=== PATIENT | male | born 1980 | race Caucasian/White ===

== ENCOUNTER 2020-08-01 19:18 | Outpatient (CLI) | payer MEDICAID | END 2020-08-01 19:19 | disposition critical access hospital (66) | LOC: EMS 19:18 | PROVIDERS: ATTEND Surgery | DX: R41.0 Disorientation, unspecified (principal) | CPT/HCPCS: A0425; A0427 ==

== ENCOUNTER 2020-08-01 19:35 | Emergency (ER) | payer MEDICAID ==
--- NOTE | 2020-08-01 19:52 | ED Physician Documentation ---
PD HPI ABD PAIN - Stated complaint Stated Complaint: AMS - Chief complaint Chief Complaint: Neuro - History obtained from History obtained from: Patient - History of Present Illness Timing - onset: How many days ago (2-3) Timing - duration: Days (2-3 days of) Timing - details: Gradual onset, Still present (He has had upper abdominal pain with nausea and vomiting over the last 2 to 3 days. He was feeling generally weak. He was reportedly walking toward the restroom and his partner noted him to be on the floor facedown. His partner had seen him just 5 or 10 minutes prior to that. Roused slowly.) Quality: Cramping, Aching, Pain Location: RUQ, Epigastric Radiation: Lower back Improved by: No: Eating, Vomiting Worsened by: Eating Associated symptoms: Nausea, Vomiting. No: Fever, Hematemesis, Diarrhea, Hematochezia, Dysuria Similar symptoms before: Has not had sx before (denies chronic abd problems. History of stomach pains at times due to gastritis/?ulcer, usually takes omeprazole but not consistently.) Recently seen: Not recently seen Review of Systems Constitutional: reports: Myalgias, Fatigue. denies: Fever, Chills Nose: denies: Rhinorrhea / runny nose, Congestion Throat: denies: Sore throat Respiratory: denies: Cough GI: reports: Abdominal Pain, Nausea, Vomiting. denies: Abdominal Swelling, Constipation, Hematemesis, Bloody / black stool : denies: Dysuria, Frequency Neurologic: reports: Generalized weakness, Syncope. denies: Seizure (partner did not see seizure activity. Found patient on floor, face down, after coming from next room.) PD PAST MEDICAL HISTORY - Past Medical History Cardiovascular: Hypertension Respiratory: None Neuro: Seizure disorder (unclear: the patient says he may have had a seizure in the past related to medications (Tramadol Rx and was taking high end of dose range).) - Past Surgical History Past Surgical History: No - Present Medications Home Medications: Ambulatory Orders Medication Instructions Recorded Confirmed Hydrocodone/Acetaminophen [Baker 1 each PO Q6H PRN #15 tablet 08/02/20 5-325 Tablet] Omeprazole 20 mg PO BID #40 capsule. 08/02/20 Promethazine [Phenergan] 25 mg PO Q6H PRN #20 tab 08/02/20 Sucralfate [Carafate] 1 gm PO ACHS #28 tablet 08/02/20 - Allergies Allergies/Adverse Reactions: Allergies Allergy/AdvReac Type Severity Reaction Status Date / Time No Known Drug Allergies Allergy Verified 08/01/20 19:46 - Living Situation Living Situation: reports: With spouse/s.o. (had recently met new partner and is visiting into [facility] for that.) Living Arrangement: reports: At home - Social History Does the pt smoke?: No Does the pt drink ETOH?: Yes ETOH Use: Other (had not had any for past 2-3 days due to symptoms. He states regular alcohol use but not daily per se. None the past 4 dayx. ) Does the pt have substance abuse?: No PD ED PE NORMAL - Vitals Vital signs reviewed: Yes - General General: Alert and oriented X 3, No acute distress, Well developed/nourished, Other (dried blood right lower lip. Oral exam is showing small lac underside of tongue. Poor dentition without local signs of infection. ) - HEENT HEENT: Atraumatic, Pharynx benign. No: Dentition benign - Neck Neck: Supple, no meningeal sign, No bony TTP, No adenopathy - Cardiac Cardiac: RRR (mild tachycardia), No murmur - Respiratory Respiratory: Clear bilaterally - Abdomen Abdomen: Normal bowel sounds, Soft, Non distended, No organomegaly, Other (tender in upper abd mid and right, with some local guarding. Bowel sounds present and slightly hyperactive. ) - Male Male : Deferred - Rectal Rectal: Deferred - Back Back: No CVA TTP - Derm Derm: Normal color, Warm and dry - Extremities Extremities: Normal ROM s pain, No edema, No calf tenderness / cord - Neuro Neuro: Alert and oriented X 3, No motor deficit, Normal speech Results - Vitals Vitals: Vital Signs - 24 hr 08/01/20 08/01/20 08/01/20 19:30 20:43 22:00 Temperature 37.0 C Heart Rate 104 H 74 73 Respiratory 15 14 14 Rate Blood Pressure 182/113 H 129/86 H 193/122 H O2 Saturation 94 96 98 08/02/20 08/02/20 08/02/20 00:00 00:20 02:00 Temperature 36.8 C 36.8 C Heart Rate 77 75 85 Respiratory 21 23 17 Rate Blood Pressure 195/139 H 167/110 H 171/105 H O2 Saturation 97 96 95 Oxygen O2 Source Room air - Labs Labs: Laboratory Tests 08/01/20 08/01/20 08/01/20 19:56 20:07 20:07 WBC 5.7 RBC 4.41 L Hgb 14.7 Hct 41.2 L MCV 93.4 MCH 33.3 H MCHC 35.7 RDW 12.6 Plt Count 59 L MPV 10.3 Neut # (Auto) 4.6 Lymph # (Auto) 0.8 L Hopkins # (Auto) 0.3 Eos # (Auto) 0.0 Baso # (Auto) 0.0 Absolute Nucleated RBC 0.00 Nucleated RBC % 0.0 Sodium 131 L Potassium 2.9 L Chloride 91 L Carbon Dioxide 28 Anion Gap 12.0 BUN 6 Creatinine 0.7 Estimated GFR (MDRD) 126 Glucose 115 H POC Whole Bld Glucose 116 H Calcium 8.9 Magnesium 1.7 Total Bilirubin 1.5 H AST 278 H ALT 90 H Alkaline Phosphatase 77 Total Protein 7.6 Albumin 4.2 Globulin 3.4 Albumin/Globulin Ratio 1.2 Lipase 33 TSH Urine Color Urine Clarity Urine pH Ur Specific Webster Urine Protein Urine Glucose (UA) Urine Ketones Urine Occult Blood Urine Nitrite Urine Bilirubin Urine Urobilinogen Ur Leukocyte Esterase Ur Microscopic Review Urine Culture Comments Ethyl Alcohol < 5.0 08/01/20 08/01/20 20:07 23:43 WBC RBC Hgb Hct MCV MCH MCHC RDW Plt Count MPV Neut # (Auto) Lymph # (Auto) Hopkins # (Auto) Eos # (Auto) Baso # (Auto) Absolute Nucleated RBC Nucleated RBC % Sodium Potassium Chloride Carbon Dioxide Anion Gap BUN Creatinine Estimated GFR (MDRD) Glucose POC Whole Bld Glucose Calcium Magnesium Total Bilirubin AST ALT Alkaline Phosphatase Total Protein Albumin Globulin Albumin/Globulin Ratio Lipase TSH 0.71 Urine Color YELLOW Urine Clarity CLEAR Urine pH 7.5 Ur Specific Webster <=1.005 Urine Protein NEGATIVE Urine Glucose (UA) NEGATIVE Urine Ketones NEGATIVE Urine Occult Blood NEGATIVE Urine Nitrite NEGATIVE Urine Bilirubin NEGATIVE Urine Urobilinogen 0.2 (NORMAL) Ur Leukocyte Esterase NEGATIVE Ur Microscopic Review NOT INDICATED Urine Culture Comments NOT INDICATED Ethyl Alcohol - Rads (name of study) head CT Radiology: Prelim report reviewed (no acute process), See rad report abd/pelvic CT Radiology: Prelim report reviewed (large gallbladder but no signs of acute cholecysitis. Recommended U/S to better eval if small stone and wall thickness), See rad report RUQ abd U/S Radiology: Prelim report reviewed (enlarged prostere), Other PD MEDICAL DECISION MAKING - ED course Complexity details: re-evaluated patient (Clinically cleared neck by standard criteria. He does seem likely dehydrated so given IV fluids as well as pain medicine and nausea medicine. This does help though is not consistent. He is redosed later in the evening without problems. Or watch how his symptoms do.), considered differential (Has had upper abdominal pain with nausea and vomiting so under hydrated and he had gotten up to head to the restroom so may have had a postural syncope. Consider seizure though no prolonged postictal phase. There does seem to be likely some element of withdrawal), d/w patient Departure - Departure Disposition: 01 Home, Self Care Clinical Impression: Upper abdominal pain, Dehydration, Hypokalemia Nausea and vomiting Qualifiers: Vomiting type: unspecified Vomiting Intractability: non-intractable Qualified Code(s): R11.2 - Nausea with vomiting, unspecified Acute gastritis Qualifiers: Gastritis type: unspecified gastritis Gastritis bleeding: without bleeding Qualified Code(s): K29.00 - Acute gastritis without bleeding Episode of syncope Qualifiers: Syncope type: unspecified Qualified Code(s): R55 - Syncope and collapse Condition: Stable Record reviewed to determine appropriate education?: Yes Instructions: ED Gastritis Prescriptions: Sucralfate [Carafate] 1 gm PO ACHS #28 tablet Hydrocodone/Acetaminophen [Baker 5-325 Tablet] 1 each PO Q6H PRN #15 tablet PRN Reason: Pain Omeprazole 20 mg PO BID #40 capsule. Promethazine [Phenergan] 25 mg PO Q6H PRN #20 tab PRN Reason: Nausea / Vomiting Comments: It sounds likely that you had a fainting episode related to dehydration and electrolyte abnormalities subsequent to your vomiting. A seizure cannot be excluded but sounds less likely. Continue your omeprazole and increase it to twice a day for the next few weeks. Add sucralfate 3 or 4 times a day to help coat the stomach. Promethazine for nausea every 6-8 hours if needed. Add Tylenol or hydrocodone if needed for stomach pain. Did not use any NSAIDs and avoid alcohol, coffee, spicy foods. Your potassium level is a bit low likely related to the vomiting you have had. This should likely correct as your food intake returns to normal. You were given supplements IV here. Recheck if not improving well over the next 2 to 3 days return sooner if worse again. Discharge Date/Time: 08/02/20 02:10
[2020-08-01] MEDS ORDERED: SODIUM CHLORIDE 0.9% 1,000 ML IV STA (19:57)
[2020-08-01] MEDS ORDERED: KETOROLAC 30 MG/ML VIAL IVP STA (19:57)
[2020-08-01] MEDS ORDERED: ONDANSETRON 4 MG/2 ML VIAL IVP STA (19:57)
[2020-08-01] MEDS ORDERED: FAMOTIDINE 20 MG/2 ML SYRINGE IVP STA (19:58)
[2020-08-01] MEDS ORDERED: LACTATED RINGERS 1,000 ML IV STA ×2 (19:59→23:16)
[2020-08-01] MEDS ORDERED: MORPHINE 2 MG/ML CARPUJECT IVP STA (20:01)
[2020-08-01 20:16] LABS: BASOPHILS % (AUTO) 0.2 %; EOSINOPHILS % (AUTO) 0.2 %; HGB - HEMOGLOBIN 14.7 g/dL (14.0-18.0); LYMPHOCYTES # (AUTO) 0.8 10^3/uL (1.5-3.5); LYMPHOCYTES % (AUTO) 13.6 %; MEAN CORPUSCULAR HEMOGLOBIN 33.3 pg (27.0-31.0); MEAN CORPUSCULAR HGB CONC 35.7 g/dL (32.0-36.0); MEAN CORPUSCULAR VOLUME 93.4 fL (80.0-94.0); MEAN PLATELET VOLUME 10.3 fL (7.4-11.4); MONOCYTES # (AUTO) 0.3 10^3/uL (0.0-1.0); MONOCYTES % (AUTO) 4.8 %; NEUTROPHILS # (AUTO) 4.6 10^3/uL (1.5-6.6); PLT - PLATELET COUNT 59 10^3/uL (130-450); RED BLOOD COUNT 4.41 10^6/uL (4.70-6.10); RED CELL DISTRIBUTION WIDTH 12.6 % (12.0-15.0); WHITE BLOOD COUNT 5.7 x10^3/uL (4.8-10.8)
[2020-08-01 20:26] LABS: ALBUMIN 4.2 g/dL (3.2-5.5); ALBUMIN/GLOBULIN RATIO 1.2 (1.0-2.2); ALKALINE PHOSPHATASE 77 IU/L (42-121); ALT ALANINE AMINOTRANSFERASE 90 IU/L (10-60); AST ASPARTATE AMINOTRANSFERASE 278 IU/L (10-42); BILIRUBIN,TOTAL 1.5 mg/dL (0.2-1.0); BUN - BLOOD UREA NITROGEN 6 mg/dL (6-20); CALCIUM 8.9 mg/dL (8.5-10.3); CARBON DIOXIDE - CO2 28 mmol/L (21-32); CHLORIDE 91 mmol/L (101-111); CREATININE 0.7 mg/dL (0.6-1.2); GLUCOSE 115 mg/dL (70-100); LIPASE 33 U/L (22-51); MAGNESIUM 1.7 mg/dL (1.7-2.8); SODIUM 131 mmol/L (135-145); TOTAL PROTEIN 7.6 g/dL (6.7-8.2)
[2020-08-01] MEDS ORDERED: POTASSIUM CHLOR 10 MEQ/100 ML 10 MEQ/100 ML BAG IV ONE ×2 (20:28→23:16)
[2020-08-01] MEDS ORDERED: IOVERSOL 320 100 ML VIAL IVP ONE ×2 (20:37→21:34)
--- NOTE | 2020-08-01 21:38 | CT Report ---
PROCEDURE: Abdomen/Pelvis W INDICATIONS: upper abd pain and vomiting 2 days CONTRAST: IV CONTRAST: Optiray 320 ml: 100 PO CONTRAST: *NO PO CONTRAST TECHNIQUE: After the administration of contrast, 5 mm thick sections acquired from the diaphragms to the sym physis. 5 mm thick coronal and sagittal reformats were acquired. For radiation dose reduction, the following was used: automated exposure control, adjustment of mA and/or kV according to patient size . COMPARISON: None. FINDINGS: Image quality: Excellent. ABDOMEN: Lung bases: Lung bases are clear. Heart size is normal. Solid organs: Liver is fatty infiltrated and significantly enlarged in size at 27.5 cm craniocaudad, and the spleen spleen are normal in size and enhancement. Gallbladder is moderately enlarged, havin g a maximal AP dimension of up to 13.4 cm, hydropic. Biliary system is non dilated. Pancreas enhanc es normally. No adrenal nodules. Kidneys demonstrate normal size and enhancement, without hydroneph rosis. Peritoneum and bowel: Bowel loops demonstrate normal wall thickness and caliber. No free fluid or a ir. Nodes and vessels: No retroperitoneal or mesenteric adenopathy by size criteria. Aorta and inferior vena cava are normal in size. Miscellaneous: No ventral hernias. PELVIS: Genitourinary: Bladder wall thickness is normal. Miscellaneous: No inguinal hernias or adenopathy. Bones: No suspicious bony lesions. No vertebral body compression fractures. IMPRESSION: Significantly enlarged and prominently fatty infiltrated liver parenchyma with a cranioc audad length of the liver measuring up to 27.5 cm. The spleen, however, is not enlarged. There is prominent gallbladder enlargement, with internal gallbladder lumen content isodense to the l iver parenchyma. A calcified stone is not found. The gallbladder measures up to 13.4 cm AP dimension, hydropic. No acute pancreatitis is found. No mass lesion identified. Follow-up gallbladder ultrasoun d may be warranted to assess for isodense gallstones within the gallbladder lumen, and follow-up of t his study. Reviewed by: Osorio Tyler MD on 08/01/2020 9:36 PM PDT Approved by: Osorio Tyler MD on 08/01/2020 9:36 PM PDT Station ID: [id number]
--- NOTE | 2020-08-01 21:46 | CT Report ---
PROCEDURE: HEAD WO INDICATIONS: fall/syncope, struck face TECHNIQUE: Noncontrast 4.5 mm thick angled axial sections acquired from the foramen magnum to the vertex. For r adiation dose reduction, the following was used: automated exposure control, adjustment of mA and/or kV according to patient size. COMPARISON: None. FINDINGS: Image quality: Excellent. CSF spaces: Basal cisterns are patent. No extra-axial fluid collections. Ventricles are normal in size and shape. Brain: No midline shift. No intracranial masses or hemorrhage. Buchanan-white matter interface is norm al. Skull and face: Calvarium and visualized facial bones are intact, without suspicious lesions. Sinuses: Visualized sinuses and mastoids are clear. IMPRESSION: No trauma found. Reviewed by: Osorio Tyler MD on 08/01/2020 9:45 PM PDT Approved by: Osorio Tyler MD on 08/01/2020 9:45 PM PDT Station ID: [id number]
[2020-08-02] MEDS ORDERED: LORazepam 2 MG/ML VIAL IVP STA (00:06)
[2020-08-02] MEDS ORDERED: HYDROmorphone 1 MG/ML CARPUJECT IVP STA (00:06)
[2020-08-02 00:16] LABS: BILIRUBIN,URINE NEGATIVE (NEGATIVE); GLUCOSE, URINE (UA) NEGATIVE (NEGATIVE); KETONES,URINE (UA) NEGATIVE (NEGATIVE); LEUKOCYTE ESTERASE, URINE NEGATIVE (NEGATIVE); NITRITE,URINE NEGATIVE (NEGATIVE); OCCULT BLOOD,URINE NEGATIVE (NEGATIVE); PH,URINE 7.5 PH (5.0-7.5); PROTEIN,URINE NEGATIVE (NEGATIVE); UROBILINOGEN,URINE 0.2 (NORMAL) E.U./dL (NORMAL)
[2020-08-02 00:18] LABS: CLARITY,URINE CLEAR (CLEAR)
[2020-08-02 02:16] VITALS: BP 171/105
--- NOTE | 2020-08-02 08:35 | Ultrasound Report ---
PROCEDURE: Abdomen Limited INDICATIONS: enlarged GB on CT TECHNIQUE: Real-time focused scanning was performed of the abdomen, with image documentation. COMPARISON: None FINDINGS: Liver is enlarged at 26.0 cm in long axis. Liver is diffusely echogenic. No focal hepatic mass lesion s. Gallbladder is prominent in size. No gallstones. No gallbladder wall thickening with gallbladder wall measuring 2.8 mm. No pericholecystic fluid. No sonographic Davila's sign. Biliary tree is nondilated. Common bile duct measures 5.2 mm. Pancreas is obscured by bowel gas and cannot be evaluated. Right kidney is sonographically normal. IMPRESSION: 1. Gallbladder hydrops without sonographic evidence of cholelithiasis or cholecystitis. There is cont inued clinical concern for cholecystitis, a nuclear medicine HIDA scan should be considered for furth er evaluation. 2. Hepatomegaly with increased hepatic echogenicity. Echogenic liver is nonspecific finding which typ ically represents fatty infiltration, however other etiologies can produce a similar appearance inclu ding hepatic cirrhosis. Recommend correlation with clinical and laboratory data. Reviewed by: Brigette Luz MD, PhD on 08/02/2020 8:34 AM PDT Approved by: Brigette Luz MD, PhD on 08/02/2020 8:34 AM PDT Station ID: [id number]
== END 2020-08-02 02:10 | disposition home or self-care (01) ==
LOC: ED 19:35
DX: K29.00 Acute gastritis without bleeding (principal); E86.0 Dehydration; E87.6 Hypokalemia; R55 Syncope and collapse; S01.512A Laceration without foreign body of oral cavity, initial encounter; X58.XXXA Exposure to other specified factors, initial encounter; K76.0 Fatty (change of) liver, not elsewhere classified; K82.8 Other specified diseases of gallbladder; N40.0 Benign prostatic hyperplasia without lower urinary tract symptoms; I10 Essential (primary) hypertension
CPT/HCPCS: 36415; 70450; 74177; 76705; 80053; 80320; 81003; 83690; 83735; 84443; 85025; 96365; 96366; 96375; 99284; 99285; J1170; J2060; J7120; Q9967; 81001; 87086

== ENCOUNTER 2020-10-07 04:18 | Emergency (ER) | payer MEDICAID ==
[2020-10-07 05:23] LABS: BASOPHILS % (AUTO) 0.4 %; EOSINOPHILS # (AUTO) 0.1 10^3/uL (0.0-0.7); EOSINOPHILS % (AUTO) 0.9 %; HGB - HEMOGLOBIN 14.2 g/dL (14.0-18.0); LYMPHOCYTES # (AUTO) 2.8 10^3/uL (1.5-3.5); LYMPHOCYTES % (AUTO) 52.1 %; MEAN CORPUSCULAR HEMOGLOBIN 31.9 pg (27.0-31.0); MEAN CORPUSCULAR HGB CONC 34.7 g/dL (32.0-36.0); MEAN CORPUSCULAR VOLUME 91.9 fL (80.0-94.0); MEAN PLATELET VOLUME 9.7 fL (7.4-11.4); MONOCYTES # (AUTO) 0.3 10^3/uL (0.0-1.0); NEUTROPHILS # (AUTO) 2.2 10^3/uL (1.5-6.6); NEUTROPHILS % (AUTO) 40.4 %; PLT - PLATELET COUNT 78 10^3/uL (130-450); RED BLOOD COUNT 4.45 10^6/uL (4.70-6.10); RED CELL DISTRIBUTION WIDTH 12.6 % (12.0-15.0); WHITE BLOOD COUNT 5.4 x10^3/uL (4.8-10.8)
[2020-10-07 05:29] LABS: CALCIUM 8.4 mg/dL (8.5-10.3); CREATININE 0.7 mg/dL (0.6-1.2)
--- NOTE | 2020-10-07 08:05 | ED Physician Documentation ---
PD HPI MHE - Stated complaint Stated Complaint: MHE/SI - Chief complaint Chief Complaint: MHE - History obtained from History obtained from: Patient, Friend (significant other) - History of Present Illness Primary symptom: Suicidal ideation - Additional information Additional information: 40-year-old man with past medical history of depression with prior inpatient psych hospitalizations, most recently last week, presents with alcohol intoxication and suicidal ideation this past evening. Patient states that he plans to kill himself by taking Coumadin and slitting his wrists. He also endorses homicidal ideation and AVH. States that he hears voices but he cannot tell anyone about them. Denies current drug use but does endorse meth use in the past. Review of Systems Ten Systems: 10 systems reviewed and negative Constitutional: denies: Fever, Chills Psychiatric: reports: Depressed, Suicidal, Homicidal, Hallucinations PD PAST MEDICAL HISTORY - Past Medical History Past Medical History: Yes Cardiovascular: Hypertension Respiratory: None Neuro: Seizure disorder GI: GERD Psych: Depression, Anxiety, Post traumatic stress disorder, Other Musculoskeletal: Chronic back pain Other Past Medical History: Suicidal Ideation, Suicide ATTEMPTS - Past Surgical History Past Surgical History: No - Present Medications Home Medications: Ambulatory Orders Medication Instructions Recorded Confirmed Quetiapine Fumarate [Seroquel Xr] 25 mg PO BID 10/07/20 10/07/20 hydrOXYzine HCL [Hydroxyzine HCl] 25 mg PO QID 10/07/20 10/07/20 traZODone [Desyrel] 50 mg PO QPM 10/07/20 10/07/20 - Allergies Allergies/Adverse Reactions: Allergies Allergy/AdvReac Type Severity Reaction Status Date / Time tramadol Allergy Unknown Verified 10/07/20 04:58 - Social History Does the pt smoke?: No Smoking Status: Never smoker Does the pt drink ETOH?: Yes Does the pt have substance abuse?: No - POLST Patient has POLST: No PD ED PE NORMAL - Vitals Vital signs reviewed: Yes - General General: Alert and oriented X 3 - HEENT HEENT: Atraumatic - Neck Neck: Supple, no meningeal sign - Cardiac Cardiac: RRR - Respiratory Respiratory: No respiratory distress - Abdomen Abdomen: Normal bowel sounds, Non tender, Non distended - Male Male : Deferred - Rectal Rectal: Deferred - Back Back: No spinal TTP - Derm Derm: Normal color - Extremities Extremities: No deformity - Neuro Neuro: Alert and oriented X 3 - Psych Psych: Other (Clinically intoxicated) Results - Vitals Vitals: Vital Signs - 24 hr 10/07/20 10/07/20 04:25 06:58 Temperature 36.0 C L 36.5 C Heart Rate 106 H 94 Respiratory 18 18 Rate Blood Pressure 131/104 H 145/74 H O2 Saturation 97 95 Oxygen O2 Source Room air - Labs Labs: Laboratory Tests 10/07/20 10/07/20 05:15 05:15 WBC 5.4 RBC 4.45 L Hgb 14.2 Hct 40.9 L MCV 91.9 MCH 31.9 H MCHC 34.7 RDW 12.6 Plt Count 78 L MPV 9.7 Neut # (Auto) 2.2 Lymph # (Auto) 2.8 Baxter # (Auto) 0.3 Eos # (Auto) 0.1 Baso # (Auto) 0.0 Absolute Nucleated RBC 0.00 Nucleated RBC % 0.0 Sodium 141 Potassium 3.2 L Chloride 104 Carbon Dioxide 22 Anion Gap 15.0 H BUN 7 Creatinine 0.7 Estimated GFR (MDRD) 125 Glucose 117 H Calcium 8.4 L Ethyl Alcohol 410.8 PD MEDICAL DECISION MAKING - ED course ED course: 40-year-old man with past medical history of psychiatric illness and alcohol abuse presents with suicidal ideation. Patient clinically intoxicated at this time. Care turned over to Dr. Wang for further evaluation.
[2020-10-07] MEDS ORDERED: POTASSIUM CHLORIDE 20 MEQ TABLET PO STA (10:13)
[2020-10-07] MEDS ORDERED: FOLIC ACID INJ 1 MG, THIAMINE INJ 100 MG, MAGNESIUM SULFATE 2 GM, MULTIVITAMIN 10 ML in... IV STA ×5 (10:13)
[2020-10-07] MEDS ORDERED: LORazepam 2 MG/ML VIAL IVP STA ×3 (10:13→20:11)
[2020-10-07 10:57] LABS: MUDS CUTOFF CONCENTRATIONS CUTOFF CONC BELOW:
[2020-10-07] MEDS ORDERED: NICOTINE 14 MG PATCH TOP STA (11:04)
[2020-10-07 11:14] LABS: AMPHETAMINE SCREEN,URINE NEGATIVE (NEGATIVE); BENZODIAZEPINES SCREEN, URINE NEGATIVE (NEGATIVE); COCAINE SCREEN URINE NEGATIVE (NEGATIVE); METHADONE SCREEN, URINE NEGATIVE (NEGATIVE); METHAMPHETAMINES SCREEN, URINE NEGATIVE (NEGATIVE); OPIATE SCREEN, URINE NEGATIVE (NEGATIVE); OXYCODONE SCREEN, URINE NEGATIVE (NEGATIVE); PROPOXYPHENE SCREEN, URINE NEGATIVE (NEGATIVE); TRICYCLIC ANTIDEPRESSANT,URINE POSITIVE (NEGATIVE)
[2020-10-07] MEDS ORDERED: OLANZapine ODT 5 MG TABLET TL STA (11:48)
--- NOTE | 2020-10-07 13:35 | ED Physician Documentation ---
ED Addendum - Addendum Addendum: 10/07/20 13:34 I met and spoke with the patient. He states that he feels chronically suicidal. He states that he has attempted suicide three times in the past and failed each time. He states that he does not think he would try a fourth time, because he would probably fail again. He states that he stopped taking all of his medications approximately a week ago. Has been drinking heavily. He will not be sober until after 5 PM tonight, [facility]. Patient will need psychiatric clearance once sober. This document was made in part using voice recognition software. While efforts are made to proofread this document, sound alike and grammatical errors may occur.
[2020-10-07 13:43] LABS: ACETAMINOPHEN < 10 ug/mL (10-30); SALICYLATE < 6.0 mg/dL
[2020-10-07] MEDS ORDERED: ONDANSETRON 4 MG/2 ML VIAL IVP STA (14:03)
--- NOTE | 2020-10-07 21:20 | ED Physician Documentation ---
ED Addendum - Addendum Addendum: 10/07/20 21:[address] Salgado at shift change. This is a 40-year-old gentleman who came in suicidal and drunk. Now that he is sober he denies suicidal ideation and contracts for safety. He was seen by the [facility] and released for outpatient treatment. I am prescribing a few Ativan for potential withdrawal.
[2020-10-07 21:31] VITALS: BP 143/79
== END 2020-10-07 21:37 | disposition home or self-care (01) ==
LOC: ED 04:18
DX: R45.851 Suicidal ideations (principal); F10.129 Alcohol abuse with intoxication, unspecified; F32.9 Major depressive disorder, single episode, unspecified; T50.916A Underdosing of multiple unspecified drugs, medicaments and biological substances, initial encounter; Z91.128 Patient's intentional underdosing of medication regimen for other reason; R44.0 Auditory hallucinations; I10 Essential (primary) hypertension; Z91.5 Personal history of self-harm; Z20.828 Contact with and (suspected) exposure to other viral communicable diseases
CPT/HCPCS: 36415; 80048; 80306; 80307; 80320; 80329; 85025; 87635; 96365; 96366; 96375; 96376; 99283; 99284; A9270; J2060; J3411

== ENCOUNTER 2020-11-02 17:42 | Emergency (ER) | payer MEDICAID ==
[2020-11-02 18:00] LABS: BASOPHILS % (AUTO) 0.5 %; EOSINOPHILS % (AUTO) 0.2 %; HGB - HEMOGLOBIN 15.6 g/dL (14.0-18.0); LYMPHOCYTES % (AUTO) 38.8 %; MEAN CORPUSCULAR HEMOGLOBIN 31.9 pg (27.0-31.0); MEAN CORPUSCULAR HGB CONC 35.1 g/dL (32.0-36.0); MEAN PLATELET VOLUME 9.4 fL (7.4-11.4); MONOCYTES % (AUTO) 5.3 %; NEUTROPHILS % (AUTO) 54.7 %; PLT - PLATELET COUNT 176 10^3/uL (130-450); RED BLOOD COUNT 4.89 10^6/uL (4.70-6.10); RED CELL DISTRIBUTION WIDTH 13.3 % (12.0-15.0); WHITE BLOOD COUNT 17.3 x10^3/uL (4.8-10.8)
[2020-11-02 18:04] LABS: ABNORMAL LYMPHS % (MANUAL) 0 %; BAND NEUTROPHILS % (MANUAL) 0 %
[2020-11-02] MEDS ORDERED: ALPRAZolam 0.25 MG TABLET PO STA ×2 (18:12→19:57)
[2020-11-02] MEDS ORDERED: NICOTINE 14 MG PATCH TOP STA (18:12)
--- NOTE | 2020-11-02 18:16 | ED Physician Documentation ---
History of Present Illness - Stated complaint Stated Complaint: SI - Chief complaint Chief Complaint: MHE - History obtained from History obtained from: Patient - Additonal information Additional information: 40-year-old male with a history of heavy alcoholism comes emergency department for suicidal thoughts with a plan. He reports that he called [facility] to bring him to the [facility] department because he plan to harm himself. Patient reports to me that he is in possession of Coumadin Without a prescription. He would take the Coumadin and then either cut his wrist so that he bled out or stab his neck with a pen or knife. He reports that he was sober for quite some time but relapsed a few months ago. He reports that he does not feel that he should be on this earth but leaving would hurt so many people. He does desire psychiatric hospitalization for stabilization. At this time Nas appears to be voluntary, however given the threat with the plan if he were to leave involuntarily I would recommend DCR. Right now the plan will be to medically clear him once that is done I will ask for telepsych consultation Review of Systems Constitutional: reports: Reviewed and negative Eyes: reports: Reviewed and negative Ears: reports: Reviewed and negative Nose: reports: Reviewed and negative Throat: reports: Reviewed and negative Cardiac: reports: Reviewed and negative Respiratory: reports: Reviewed and negative GI: reports: Reviewed and negative : reports: Reviewed and negative Skin: reports: Reviewed and negative Musculoskeletal: reports: Reviewed and negative Neurologic: reports: Reviewed and negative Psychiatric: reports: Reviewed and negative PD PAST MEDICAL HISTORY - Past Medical History Cardiovascular: Hypertension Respiratory: None Neuro: Seizure disorder GI: GERD Psych: Depression, Anxiety, Post traumatic stress disorder, Other Musculoskeletal: Chronic back pain - Past Surgical History Past Surgical History: No - Present Medications Home Medications: Ambulatory Orders Medication Instructions Recorded Confirmed LORazepam [Ativan] 1 mg PO TID PRN #6 tablet 10/07/20 11/02/20 Quetiapine Fumarate [Seroquel Xr] 25 mg PO BID 10/07/20 11/02/20 hydrOXYzine HCL [Hydroxyzine HCl] 25 mg PO QID 10/07/20 11/02/20 traZODone [Desyrel] 50 mg PO QPM 10/07/20 11/02/20 Lisinopril [Zestril] 40 mg PO DAILY 11/02/20 11/02/20 - Allergies Allergies/Adverse Reactions: Allergies Allergy/AdvReac Type Severity Reaction Status Date / Time tramadol Allergy Unknown Verified 10/07/20 04:58 - Social History Does the pt smoke?: No Smoking Status: Never smoker Does the pt drink ETOH?: Yes Does the pt have substance abuse?: No - POLST Patient has POLST: No PD ED PE EXPANDED - General General: Alert, No acute distress, Other (in hospital scrubs) - HEENT HEENT: Atraumatic, PERRL - Eyes Eyes: PERRL - Neck Neck: Supple w/out meningeal sx, No tenderness - Cardiac Cardiac: Regular Rate, Tachy, Radial strong equal, Pedal strong equal, Cap refill < 2 sec - Respiratory Respiratory: Clear to ausultation bree. No: Distress, Labored - Abdomen Abdomen: Normal Bowel sounds. No: Tender to palpation - Derm Derm: Normal color. No: Cyanotic, Rash - Extremities Extremities: Normal. No: Deformity - Neuro Neuro: Alert and Oriented X 3, CNII-XII intact, Normal speech - GCS Eye Opening: Spontaneous Motor: Obeys Commands Verbal: Oriented Total: 15 Results - Vitals Vitals: Vital Signs - 24 hr 11/02/20 11/02/20 17:50 21:00 Temperature 36 C L 36.6 C Heart Rate 111 H 98 Respiratory 16 18 Rate Blood Pressure 127/79 142/81 H O2 Saturation 99 99 Oxygen O2 Source Room air - Labs Labs: Laboratory Tests 11/02/20 11/02/20 11/02/20 17:55 17:55 17:55 WBC 17.3 H RBC 4.89 Hgb 15.6 Hct 44.5 MCV 91.0 MCH 31.9 H MCHC 35.1 RDW 13.3 Plt Count 176 MPV 9.4 Neut # (Auto) Not Reportable Lymph # (Auto) Not Reportable [place] # (Auto) Not Reportable Eos # (Auto) Not Reportable Baso # (Auto) Not Reportable Absolute Nucleated RBC Not Reportable Total Counted 100 Band Neuts % (Manual) 0 Reactive Lymphs % (Man) 6 Abnorm Lymph % (Manual) 0 Nucleated RBC % Not Reportable Neutrophils # (Manual) 9.2 H Lymphocytes # (Manual) 7.4 H Monocytes # (Manual) 0.3 Eosinophils # (Manual) 0.0 Basophils # (Manual) 0.3 H Differential Comment MANUAL DIFFERENTIAL WBC Morphology NORMAL APPEARANCE Platelet Estimate NORMAL (130-450,000) Platelet Morphology NORMAL APPEARANCE RBC Morph Micro Appear NORMAL APPEARANCE Sodium 138 Potassium 3.8 Chloride 99 L Carbon Dioxide 21 Anion Gap 18.0 H BUN 13 Creatinine 0.8 Estimated GFR (MDRD) 107 Glucose 113 H Calcium 9.0 Total Bilirubin 0.9 AST 219 H ALT 60 Alkaline Phosphatase 87 Total Protein 8.4 H Albumin 4.8 Globulin 3.6 Albumin/Globulin Ratio 1.3 Lipase 110 H TSH 4.49 Urine Color Urine Clarity Urine pH Ur Specific [place] Urine Protein Urine Glucose (UA) Urine Ketones Urine Occult Blood Urine Nitrite Urine Bilirubin Urine Urobilinogen Ur Leukocyte Esterase Ur Microscopic Review Urine Culture Comments Nasal Adenovirus (PCR) Nasal B. parapertussis DNA (PCR) Nasal Coronavir 229E PCR Nasal Coronavir HKU1 PCR Nasal Coronavir NL63 PCR Nasal Coronavir OC43 PCR Nasal Enterovir/Rhinovir PCR Nasal Influenza B PCR Nasal Influenza A PCR Nasal Parainfluen 1 PCR Nasal Parainfluen 2 PCR Nasal Parainfluen 3 PCR Nasal Parainfluen 4 PCR Nasal RSV (PCR) Nasal B.pertussis DNA PCR Nasal C.pneumoniae (PCR) Isacc Human Metapneumo PCR Nasal M.pneumoniae (PCR) Nasal SARS-CoV-2 (PCR) Salicylates < 6.0 Urine Opiates Screen Ur Oxycodone Screen Urine Methadone Screen Ur Propoxyphene Screen Acetaminophen < 10 L Ur Barbiturates Screen Ur Tricyclics Screen Ur Phencyclidine Scrn Ur Amphetamine Screen U Methamphetamines Scrn U Benzodiazepines Scrn Urine Cocaine Screen U Cannabinoids Screen Ethyl Alcohol 372.9 11/02/20 11/02/20 18:43 19:53 WBC RBC Hgb Hct MCV MCH MCHC RDW Plt Count MPV Neut # (Auto) Lymph # (Auto) [place] # (Auto) Eos # (Auto) Baso # (Auto) Absolute Nucleated RBC Total Counted Band Neuts % (Manual) Reactive Lymphs % (Man) Abnorm Lymph % (Manual) Nucleated RBC % Neutrophils # (Manual) Lymphocytes # (Manual) Monocytes # (Manual) Eosinophils # (Manual) Basophils # (Manual) Differential Comment WBC Morphology Platelet Estimate Platelet Morphology RBC Morph Micro Appear Sodium Potassium Chloride Carbon Dioxide Anion Gap BUN Creatinine Estimated GFR (MDRD) Glucose Calcium Total Bilirubin AST ALT Alkaline Phosphatase Total Protein Albumin Globulin Albumin/Globulin Ratio Lipase TSH Urine Color YELLOW Urine Clarity CLEAR Urine pH 6.0 Ur Specific [place] <=1.005 Urine Protein NEGATIVE Urine Glucose (UA) NEGATIVE Urine Ketones NEGATIVE Urine Occult Blood TRACE-INTA Urine Nitrite NEGATIVE Urine Bilirubin NEGATIVE Urine Urobilinogen 0.2 (NORMAL) Ur Leukocyte Esterase NEGATIVE Ur Microscopic Review NOT INDICATED Urine Culture Comments NOT INDICATED Nasal Adenovirus (PCR) NOT DETECTED Nasal B. parapertussis DNA (PCR) NOT DETECTED Nasal Coronavir 229E PCR NOT DETECTED Nasal Coronavir HKU1 PCR NOT DETECTED Nasal Coronavir NL63 PCR NOT DETECTED Nasal Coronavir OC43 PCR NOT DETECTED Nasal Enterovir/Rhinovir PCR NOT DETECTED Nasal Influenza B PCR NOT DETECTED Nasal Influenza A PCR NOT DETECTED Nasal Parainfluen 1 PCR NOT DETECTED Nasal Parainfluen 2 PCR NOT DETECTED Nasal Parainfluen 3 PCR NOT DETECTED Nasal Parainfluen 4 PCR NOT DETECTED Nasal RSV (PCR) NOT DETECTED Nasal B.pertussis DNA PCR NOT DETECTED Nasal C.pneumoniae (PCR) NOT DETECTED Isacc Human Metapneumo PCR NOT DETECTED Nasal M.pneumoniae (PCR) NOT DETECTED Nasal SARS-CoV-2 (PCR) NOT DETECTED Salicylates Urine Opiates Screen NEGATIVE Ur Oxycodone Screen NEGATIVE Urine Methadone Screen NEGATIVE Ur Propoxyphene Screen NEGATIVE Acetaminophen Ur Barbiturates Screen NEGATIVE Ur Tricyclics Screen NEGATIVE Ur Phencyclidine Scrn NEGATIVE Ur Amphetamine Screen NEGATIVE U Methamphetamines Scrn NEGATIVE U Benzodiazepines Scrn NEGATIVE Urine Cocaine Screen NEGATIVE U Cannabinoids Screen NEGATIVE Ethyl Alcohol PD MEDICAL DECISION MAKING - ED course Complexity details: reviewed old records, reviewed results, re-evaluated patient, considered differential, d/w patient ED course: 40-year-old male with a history of alcohol abuse presents to the emergency department with suicidal plan. He reports to this provider that he would take Coumadin and then slit his wrists or stab his neck. He had a similar presentation nearly 1 month ago for same. At this time this gentleman appears very intoxicated and he has a blood alcohol greater than 300. He will certainly need time to metabolize in the emergency department before he is medically cleared. I do note that he has a significant leukocytosis of 17,000. Covid screening is negative. CXR showed no acute focal opacity. At this time the gentleman will be signed out to my nighttime per provider and colleague to evaluate overnight. He does have a pending repeat ethanol level in the a.m. Once no longer legally intoxicated he can then be further evaluated for suicidal ideation.
[2020-11-02 18:20] LABS: ACETAMINOPHEN < 10 ug/mL (10-30); ALBUMIN 4.8 g/dL (3.2-5.5); ALBUMIN/GLOBULIN RATIO 1.3 (1.0-2.2); ALKALINE PHOSPHATASE 87 IU/L (42-121); ALT ALANINE AMINOTRANSFERASE 60 IU/L (10-60); AST ASPARTATE AMINOTRANSFERASE 219 IU/L (10-42); BILIRUBIN,TOTAL 0.9 mg/dL (0.2-1.0); BUN - BLOOD UREA NITROGEN 13 mg/dL (6-20); CARBON DIOXIDE - CO2 21 mmol/L (21-32); CHLORIDE 99 mmol/L (101-111); CREATININE 0.8 mg/dL (0.6-1.2); GLUCOSE 113 mg/dL (70-100); LIPASE 110 U/L (22-51); SALICYLATE < 6.0 mg/dL; SODIUM 138 mmol/L (135-145); TOTAL PROTEIN 8.4 g/dL (6.7-8.2)
[2020-11-02 18:40] LABS: BASOPHILS # (MANUAL) 0.3 10^3/uL (0-0.1); BASOPHILS % (MANUAL) 2 %; LYMPHOCYTES # (MANUAL) 7.4 10^3/uL (1.5-3.5); LYMPHOCYTES % (MANUAL) 37 %; MONOCYTES # (MANUAL) 0.3 10^3/uL (0.0-1.0)
[2020-11-02 18:41] LABS: DIFFERENTIAL COMMENT MANUAL DIFFERENTIAL; PLATELET ESTIMATE, MANUAL NORMAL (130-450,000) (NORMAL); PLATELET MORPHOLOGY NORMAL APPEARANCE (NORMAL); RBC MORPHOLOGY (MULTIPLE) NORMAL APPEARANCE (NORMAL)
[2020-11-02 18:50] LABS: MUDS CUTOFF CONCENTRATIONS CUTOFF CONC BELOW:
--- NOTE | 2020-11-02 19:15 | XRAY Report ---
PROCEDURE: Chest 1 View X-Ray INDICATIONS: chest pain TECHNIQUE: One view of the chest was acquired. COMPARISON: None. FINDINGS: Surgical changes and devices: None. Lungs and pleura: No pleural effusions or pneumothorax. Lungs are clear. Mediastinum: Mediastinal contours appear normal. Heart size is normal. Bones and chest wall: No suspicious bony lesions. Overlying soft tissues appear unremarkable. IMPRESSION: Light film technique, which accentuates the alveolar markings. A definite CHF pattern or pneumonia is not found. Reviewed by: Osorio Tyler MD on 11/02/2020 7:14 PM PST Approved by: Osorio Tyler MD on 11/02/2020 7:14 PM PST Station ID: [id number]
[2020-11-02 19:27] LABS: BILIRUBIN,URINE NEGATIVE (NEGATIVE); GLUCOSE, URINE (UA) NEGATIVE (NEGATIVE); KETONES,URINE (UA) NEGATIVE (NEGATIVE); LEUKOCYTE ESTERASE, URINE NEGATIVE (NEGATIVE); NITRITE,URINE NEGATIVE (NEGATIVE); OCCULT BLOOD,URINE TRACE-INTA (NEGATIVE); PROTEIN,URINE NEGATIVE (NEGATIVE); UROBILINOGEN,URINE 0.2 (NORMAL) E.U./dL (NORMAL)
[2020-11-02 19:28] LABS: AMPHETAMINE SCREEN,URINE NEGATIVE (NEGATIVE); BENZODIAZEPINES SCREEN, URINE NEGATIVE (NEGATIVE); CLARITY,URINE CLEAR (CLEAR); COCAINE SCREEN URINE NEGATIVE (NEGATIVE); METHADONE SCREEN, URINE NEGATIVE (NEGATIVE); METHAMPHETAMINES SCREEN, URINE NEGATIVE (NEGATIVE); OPIATE SCREEN, URINE NEGATIVE (NEGATIVE); OXYCODONE SCREEN, URINE NEGATIVE (NEGATIVE); PROPOXYPHENE SCREEN, URINE NEGATIVE (NEGATIVE); TRICYCLIC ANTIDEPRESSANT,URINE NEGATIVE (NEGATIVE)
[2020-11-02 21:06] LABS: C. PNEUMONIAE- RESP PCR PANEL NOT DETECTED
[2020-11-02] MEDS ORDERED: diphenhydrAMINE 25 MG CAPSULE PO STA (21:38)
[2020-11-02] MEDS ORDERED: LORazepam 1 MG TABLET PO STA (21:39)
[2020-11-03] MEDS ORDERED: ONDANSETRON ODT 4 MG TABLET TL STA (00:40)
[2020-11-03] MEDS ORDERED: LORazepam 1 MG TABLET PO STA ×2 (00:40→06:05)
--- NOTE | 2020-11-03 08:36 | ED Physician Documentation ---
ED Addendum - Addendum Addendum: 40-year-old male was signed out to me awaiting social work evaluation. Patient is no longer suicidal this morning. He is able to contract for safety. He has a supportive partner at home. Has an AA sponsor. Has a psychiatrist and therapist. Social work met with the patient as well. We will have him follow- up outpatient with his therapist and psychiatrist. Patient counseled regarding signs and symptoms for which I believe and urgent re-evaluation would be necessary. Patient with good understanding of and agreement to plan and is comfortable going home at this time This document was made in part using voice recognition software. While efforts are made to proofread this document, sound alike and grammatical errors may occur. Departure - Departure Disposition: 01 Home, Self Care Clinical Impression: Alcoholic intoxication Qualifiers: Complication of substance-induced condition: uncomplicated Qualified Code(s): F10.920 - Alcohol use, unspecified with intoxication, uncomplicated Depression Qualifiers: Depression Type: unspecified Qualified Code(s): F32.9 - Major depressive disorder, single episode, unspecified Condition: Good Instructions: ED Depression, ED Alcohol Intoxication Follow-Up: MACARENA MARIA MD [Primary Care Provider] - Within 3 Days Comments: You need to stop drinking. Please rely on your partner and your AA sponsor to help with this. You also need to follow-up closely with your psychiatrist and therapist. Return if you worsen. Crisis Line and is available to talk to someone [email or web address] is also available to chat with someone online if you prefer. There are also many resources on this website and apps for your phone to help with your mental health You can also text the word START to [phone] to chat with someome via text.
[2020-11-03 08:54] VITALS: BP 129/77
== END 2020-11-03 08:45 | disposition home or self-care (01) ==
LOC: EDUNIT# → ED 17:42
DX: R45.851 Suicidal ideations (principal); F10.920 Alcohol use, unspecified with intoxication, uncomplicated; F32.9 Major depressive disorder, single episode, unspecified; F43.10 Post-traumatic stress disorder, unspecified; I10 Essential (primary) hypertension; Z20.828 Contact with and (suspected) exposure to other viral communicable diseases
CPT/HCPCS: 0202U; 71045; 80053; 80306; 80307; 80320; 80329; 81003; 83690; 84443; 85025; 99284; 99285; A9270; J8499; Q0162; 36415; 81001; 87086

== ENCOUNTER 2020-12-04 17:13 | Outpatient (CLI) | payer MEDICAID | END 2020-12-04 17:14 | disposition critical access hospital (66) | LOC: EMS 17:13 | PROVIDERS: ATTEND Surgery | DX: R45.851 Suicidal ideations (principal) | CPT/HCPCS: A0425; A0429; A0999 ==

== ENCOUNTER 2020-12-04 17:25 | Emergency (ER) | payer MEDICAID ==
--- NOTE | 2020-12-04 17:33 | ED Physician Documentation ---
PD HPI MHE - Stated complaint Stated Complaint: SI - History obtained from History obtained from: Patient, EMS - Additional information Additional information: 40-year-old gentleman presents presents by ambulance intoxicated with alcohol, stating he does not want to live anymore. Denies specific plan but does want to be hospitalized. Seen for similar about a month ago. Suicidal ideation resolved when not intoxicated. Admits to drinking today. Review of Systems Ten Systems: 10 systems reviewed and negative Constitutional: reports: Reviewed and negative Eyes: reports: Reviewed and negative Ears: reports: Reviewed and negative PD PAST MEDICAL HISTORY - Past Medical History Cardiovascular: Hypertension Respiratory: None Neuro: Seizure disorder GI: GERD Psych: Depression, Anxiety, Post traumatic stress disorder, Other Musculoskeletal: Chronic back pain - Past Surgical History Past Surgical History: No - Present Medications Home Medications: Ambulatory Orders Medication Instructions Recorded Confirmed LORazepam [Ativan] 1 mg PO TID PRN #6 tablet 10/07/20 11/02/20 Quetiapine Fumarate [Seroquel Xr] 25 mg PO BID 10/07/20 11/02/20 hydrOXYzine HCL [Hydroxyzine HCl] 25 mg PO QID 10/07/20 11/02/20 traZODone [Desyrel] 50 mg PO QPM 10/07/20 11/02/20 Lisinopril [Zestril] 40 mg PO DAILY 11/02/20 11/02/20 - Allergies Allergies/Adverse Reactions: Allergies Allergy/AdvReac Type Severity Reaction Status Date / Time tramadol Allergy Unknown Verified 10/07/20 04:58 - Social History Does the pt smoke?: No Smoking Status: Never smoker Does the pt drink ETOH?: Yes Does the pt have substance abuse?: No - POLST Patient has POLST: No PD ED PE NORMAL - Vitals Vital signs reviewed: Yes - General General: Alert and oriented X 3, Other (Slow slurred speech, smells of alcohol but friendly and cooperative. A lot of nystagmus.) - HEENT HEENT: PERRL - Neck Neck: Supple, no meningeal sign, No bony TTP - Cardiac Cardiac: RRR, No murmur - Respiratory Respiratory: No respiratory distress, Clear bilaterally - Abdomen Abdomen: Non tender - Back Back: No CVA TTP, No spinal TTP - Derm Derm: Normal color, Warm and dry - Extremities Extremities: No edema, No calf tenderness / cord - Neuro Neuro: Alert and oriented X 3, Normal speech Results - Vitals Vitals: Vital Signs - 24 hr 12/04/20 12/04/20 12/04/20 17:32 18:16 18:30 Temperature 36.7 C Heart Rate 85 77 84 Respiratory 14 14 16 Rate Blood Pressure 138/86 H 144/81 H 112/78 O2 Saturation 94 91 L 95 12/04/20 12/04/20 12/04/20 18:45 19:09 19:39 Temperature Heart Rate 85 82 95 Respiratory 18 16 18 Rate Blood Pressure 116/70 116/76 124/81 H O2 Saturation 94 94 95 12/04/20 21:11 Temperature Heart Rate 80 Respiratory 17 Rate Blood Pressure 121/74 O2 Saturation 95 Oxygen O2 Source Nasal cannula - Labs Labs: Laboratory Tests 12/04/20 12/04/20 12/04/20 17:53 17:53 17:53 WBC 10.1 RBC 4.68 L Hgb 14.6 Hct 42.5 MCV 90.8 MCH 31.2 H MCHC 34.4 RDW 14.2 Plt Count 188 MPV 9.6 Neut # (Auto) 4.5 Lymph # (Auto) 4.8 H [place] # (Auto) 0.5 Eos # (Auto) 0.1 Baso # (Auto) 0.1 Absolute Nucleated RBC 0.00 Nucleated RBC % 0.0 Sodium 138 Potassium 3.6 Chloride 101 Carbon Dioxide 25 Anion Gap 12.0 BUN 18 Creatinine 0.7 Estimated GFR (MDRD) 125 Glucose 122 H Calcium 8.4 L Total Bilirubin 0.7 AST 178 H ALT 71 H Alkaline Phosphatase 53 Total Protein 7.6 Albumin 4.2 Globulin 3.4 Albumin/Globulin Ratio 1.2 Lipase 45 TSH 1.40 Nasal Adenovirus (PCR) Nasal B. parapertussis DNA (PCR) Nasal Coronavir 229E PCR Nasal Coronavir HKU1 PCR Nasal Coronavir NL63 PCR Nasal Coronavir OC43 PCR Nasal Enterovir/Rhinovir PCR Nasal Influenza B PCR Nasal Influenza A PCR Nasal Parainfluen 1 PCR Nasal Parainfluen 2 PCR Nasal Parainfluen 3 PCR Nasal Parainfluen 4 PCR Nasal RSV (PCR) Nasal B.pertussis DNA PCR Nasal C.pneumoniae (PCR) Isacc Human Metapneumo PCR Nasal M.pneumoniae (PCR) Nasal SARS-CoV-2 (PCR) Salicylates < 6.0 Acetaminophen < 10 L Ethyl Alcohol 455.3 12/04/20 19:15 WBC RBC Hgb Hct MCV MCH MCHC RDW Plt Count MPV Neut # (Auto) Lymph # (Auto) [place] # (Auto) Eos # (Auto) Baso # (Auto) Absolute Nucleated RBC Nucleated RBC % Sodium Potassium Chloride Carbon Dioxide Anion Gap BUN Creatinine Estimated GFR (MDRD) Glucose Calcium Total Bilirubin AST ALT Alkaline Phosphatase Total Protein Albumin Globulin Albumin/Globulin Ratio Lipase TSH Nasal Adenovirus (PCR) NOT DETECTED Nasal B. parapertussis DNA (PCR) NOT DETECTED Nasal Coronavir 229E PCR NOT DETECTED Nasal Coronavir HKU1 PCR NOT DETECTED Nasal Coronavir NL63 PCR NOT DETECTED Nasal Coronavir OC43 PCR NOT DETECTED Nasal Enterovir/Rhinovir PCR NOT DETECTED Nasal Influenza B PCR NOT DETECTED Nasal Influenza A PCR NOT DETECTED Nasal Parainfluen 1 PCR NOT DETECTED Nasal Parainfluen 2 PCR NOT DETECTED Nasal Parainfluen 3 PCR NOT DETECTED Nasal Parainfluen 4 PCR NOT DETECTED Nasal RSV (PCR) NOT DETECTED Nasal B.pertussis DNA PCR NOT DETECTED Nasal C.pneumoniae (PCR) NOT DETECTED Isacc Human Metapneumo PCR NOT DETECTED Nasal M.pneumoniae (PCR) NOT DETECTED Nasal SARS-CoV-2 (PCR) NOT DETECTED Salicylates Acetaminophen Ethyl Alcohol PD MEDICAL DECISION MAKING - ED course ED course: [employer] respiratory panel ordered to rapidly test specifically for COVID-19 in this patient who is expected to be hospitalized 40-year-old gentleman presents with suicidal ideation, but heavily intoxicated. He did require chemical sedation after arrival, he was belligerent with staff, making motions to leave. Required law enforcement help. Slept soundly after IM Zyprexa and Ativan. Blood alcohol mandates redraw tomorrow morning, it will be quite some time until he is sober given the elevation of it. Will need reassessment once sober. Signed out to overnight ED physician at shift change. Departure - Departure Clinical Impression: Alcoholic intoxication Qualifiers: Complication of substance-induced condition: with delirium Qualified Code(s): F10.921 - Alcohol use, unspecified with intoxication delirium Depression Qualifiers: Depression Type: major depressive disorder Major depression recurrence: unspecified whether recurrent Active/Remission status: remission status unspecified Qualified Code(s): F32.9 - Major depressive disorder, single episode, unspecified Condition: Stable Face to Face for Restraints - Immediate Situation Face to Face Evaluation Date: 12/04/20 Face to Face Evaluation Time: 18:10 Restraint Situation: Chemical Patient's Reactions to the Intervention: Crying, Demanding - Behavioral Condition Attitude: Guarded Behavior: Belligerent, Agitated Orientation: Person, Place, Time Mood: Angry - Evaluation Review of Systems: Positive for SI Pertinent History/Illicit Drugs/Medications/Results: He appears drunk and is threatening active suicide, trying to leave. Tried verbal de-escalation without success. - Plan Need to Continue or Terminate Violent or Chemical Restraint: Chemical sedation will be automatically discontinued as it wears off unless it needs to be reinstated.
[2020-12-04] MEDS ORDERED: LORazepam 2 MG/ML VIAL IVP STA (17:54)
[2020-12-04] MEDS ORDERED: OLANZapine 10 MG VIAL IM STA (17:54)
[2020-12-04 18:01] LABS: BASOPHILS # (AUTO) 0.1 10^3/uL (0.0-0.1); BASOPHILS % (AUTO) 0.7 %; EOSINOPHILS # (AUTO) 0.1 10^3/uL (0.0-0.7); EOSINOPHILS % (AUTO) 0.9 %; HGB - HEMOGLOBIN 14.6 g/dL (14.0-18.0); LYMPHOCYTES # (AUTO) 4.8 10^3/uL (1.5-3.5); LYMPHOCYTES % (AUTO) 48.1 %; MEAN CORPUSCULAR HEMOGLOBIN 31.2 pg (27.0-31.0); MEAN CORPUSCULAR HGB CONC 34.4 g/dL (32.0-36.0); MEAN CORPUSCULAR VOLUME 90.8 fL (80.0-94.0); MEAN PLATELET VOLUME 9.6 fL (7.4-11.4); MONOCYTES # (AUTO) 0.5 10^3/uL (0.0-1.0); MONOCYTES % (AUTO) 5.4 %; NEUTROPHILS # (AUTO) 4.5 10^3/uL (1.5-6.6); NEUTROPHILS % (AUTO) 44.5 %; PLT - PLATELET COUNT 188 10^3/uL (130-450); RED BLOOD COUNT 4.68 10^6/uL (4.70-6.10); RED CELL DISTRIBUTION WIDTH 14.2 % (12.0-15.0); WHITE BLOOD COUNT 10.1 x10^3/uL (4.8-10.8)
[2020-12-04 18:13] LABS: ACETAMINOPHEN < 10 ug/mL (10-30); ALBUMIN 4.2 g/dL (3.2-5.5); ALBUMIN/GLOBULIN RATIO 1.2 (1.0-2.2); ALKALINE PHOSPHATASE 53 IU/L (42-121); ALT ALANINE AMINOTRANSFERASE 71 IU/L (10-60); AST ASPARTATE AMINOTRANSFERASE 178 IU/L (10-42); BILIRUBIN,TOTAL 0.7 mg/dL (0.2-1.0); BUN - BLOOD UREA NITROGEN 18 mg/dL (6-20); CALCIUM 8.4 mg/dL (8.5-10.3); CARBON DIOXIDE - CO2 25 mmol/L (21-32); CHLORIDE 101 mmol/L (101-111); CREATININE 0.7 mg/dL (0.6-1.2); GLUCOSE 122 mg/dL (70-100); LIPASE 45 U/L (22-51); SALICYLATE < 6.0 mg/dL; SODIUM 138 mmol/L (135-145); TOTAL PROTEIN 7.6 g/dL (6.7-8.2)
[2020-12-04 20:13] LABS: C. PNEUMONIAE- RESP PCR PANEL NOT DETECTED
[2020-12-04 23:33] LABS: MUDS CUTOFF CONCENTRATIONS CUTOFF CONC BELOW:
[2020-12-04 23:35] LABS: BILIRUBIN,URINE NEGATIVE (NEGATIVE); GLUCOSE, URINE (UA) NEGATIVE (NEGATIVE); KETONES,URINE (UA) NEGATIVE (NEGATIVE); LEUKOCYTE ESTERASE, URINE NEGATIVE (NEGATIVE); NITRITE,URINE NEGATIVE (NEGATIVE); OCCULT BLOOD,URINE NEGATIVE (NEGATIVE); PROTEIN,URINE NEGATIVE (NEGATIVE); UROBILINOGEN,URINE 0.2 (NORMAL) E.U./dL (NORMAL)
[2020-12-04 23:37] LABS: CLARITY,URINE CLEAR (CLEAR)
[2020-12-04 23:59] LABS: AMPHETAMINE SCREEN,URINE NEGATIVE (NEGATIVE); BENZODIAZEPINES SCREEN, URINE POSITIVE (NEGATIVE); COCAINE SCREEN URINE NEGATIVE (NEGATIVE); METHADONE SCREEN, URINE NEGATIVE (NEGATIVE); METHAMPHETAMINES SCREEN, URINE NEGATIVE (NEGATIVE); OPIATE SCREEN, URINE NEGATIVE (NEGATIVE); OXYCODONE SCREEN, URINE NEGATIVE (NEGATIVE); PROPOXYPHENE SCREEN, URINE NEGATIVE (NEGATIVE); TRICYCLIC ANTIDEPRESSANT,URINE NEGATIVE (NEGATIVE)
[2020-12-05] MEDS ORDERED: LORazepam 1 MG TABLET PO STA ×2 (03:10→11:48)
[2020-12-05] MEDS ORDERED: ONDANSETRON ODT 4 MG TABLET TL STA (11:48)
[2020-12-05] MEDS ORDERED: PHENobarbital 65 MG/ML VIAL IV STA (15:13)
[2020-12-05] MEDS ORDERED: LORazepam 2 MG/ML VIAL IVP STA ×2 (15:13→18:10)
[2020-12-05] MEDS ORDERED: SODIUM CHLORIDE 0.9% 1,000 ML IV STA (15:14)
[2020-12-05] MEDS ORDERED: LORazepam 0.5 MG TABLET PO STA (21:08)
--- NOTE | 2020-12-05 23:16 | ED Physician Documentation ---
ED Addendum - Addendum Addendum: 12/05/20 23:13 Patient seem by SW and was accepting going to detox treatment but then changed and was wanting to go home. He was not clear on how he would be managing himself/etc. SW felt patient not in good kate and wanted DCR to evaluate. Patient informed. Meanwhile he was having alcohol withdrawal, so given doses of Ativan and also some Phenobarb with improvement in withdrawal symptoms. Awaiting DCR eval.
[2020-12-06] MEDS ORDERED: chlordiazePOXIDE 25 MG CAPSULE PO STA (02:19)
[2020-12-06] MEDS ORDERED: QUEtiapine 25 MG TABLET PO STA (02:19)
[2020-12-06] MEDS ORDERED: LORazepam 1 MG TABLET PO STA ×2 (07:34→10:59)
[2020-12-06 11:38] VITALS: BP 193/118
== END 2020-12-06 11:45 | disposition home or self-care (01) ==
LOC: EDUNIT# → ED 17:25
DX: F10.921 Alcohol use, unspecified with intoxication delirium (principal); F32.9 Major depressive disorder, single episode, unspecified; I10 Essential (primary) hypertension; Z20.828 Contact with and (suspected) exposure to other viral communicable diseases
CPT/HCPCS: 0202U; 36415; 80053; 80306; 80307; 80320; 80329; 81003; 83690; 84443; 85025; 93005; 96361; 96372; 96374; 96376; 99283; 99285; A9270; J2060; J8499; Q0162; 81001; 87086

== ENCOUNTER 2021-03-22 23:24 | Outpatient (CLI) | payer MEDICAID | END 2021-03-22 23:25 | disposition short-term general hospital (02) | LOC: EMS 23:24 | DX: R56.9 Unspecified convulsions (principal) | CPT/HCPCS: A0425; A0429; A0999 ==

== ENCOUNTER 2021-04-18 12:08 | Outpatient (CLI) | payer MEDICAID | END 2021-04-18 12:09 | disposition critical access hospital (66) | LOC: EMS 12:08 | DX: R45.851 Suicidal ideations (principal) | CPT/HCPCS: A0425; A0429; A0999 ==

== ENCOUNTER 2021-04-18 12:25 | Emergency (ER) | payer MEDICAID ==
[2021-04-18 12:33] VITALS: BP 156/115
--- NOTE | 2021-04-18 12:34 | ED Physician Documentation ---
History of Present Illness - Stated complaint Stated Complaint: MHE - Additonal information Additional information: 40-year-old male presents to the emergency department as a voluntary mental health exam after getting into a family argument at home and expressing a desire to harm himself. He does report drinking heavily preceding these events and he does have a history of alcoholism. Multiple similar visits to the emergency department. On presentation the patient does appear intoxicated and smells heavily of alcohol. He does have a difficult time relaying coherent thoughts but he does endorse that he thinks he might benefit from alcohol rehabilitation. He does not expressly report to this provider that he wishes to harm himself or others. Per emergency medical staff please on scene did have the patient blow a breathalyzer and he was positive at 0.218. Review of Systems Unable to obtain: Intoxicated Psychiatric: reports: Depressed PD PAST MEDICAL HISTORY - Past Medical History Cardiovascular: Hypertension Respiratory: None Neuro: Seizure disorder GI: GERD Psych: Depression, Anxiety, Post traumatic stress disorder, Other Musculoskeletal: Chronic back pain - Past Surgical History Past Surgical History: No - Present Medications Home Medications: Ambulatory Orders Medication Instructions Recorded Confirmed LORazepam [Ativan] 1 mg PO TID PRN #6 tablet 10/07/20 11/02/20 Quetiapine Fumarate [Seroquel Xr] 25 mg PO BID 10/07/20 11/02/20 hydrOXYzine HCL [Hydroxyzine HCl] 25 mg PO QID 10/07/20 11/02/20 traZODone [Desyrel] 50 mg PO QPM 10/07/20 11/02/20 Lisinopril [Zestril] 40 mg PO DAILY 11/02/20 11/02/20 - Allergies Allergies/Adverse Reactions: Allergies Allergy/AdvReac Type Severity Reaction Status Date / Time tramadol Allergy Unknown Verified 04/18/21 12:33 - Social History Does the pt smoke?: No Smoking Status: Never smoker Does the pt drink ETOH?: Yes Does the pt have substance abuse?: No - POLST Patient has POLST: No PD ED PE EXPANDED - General General: Alert, No acute distress, Other (smells heavily of alcohol) - Cardiac Cardiac: Tachy, Radial strong equal, Pedal strong equal, Cap refill < 2 sec - Respiratory Respiratory: Clear to ausultation bree. No: Distress, Labored - Abdomen Abdomen: Normal Bowel sounds. No: Tender to palpation - Derm Derm: Normal color, Warm and dry. No: Rash, Petecchiae, Purpura - Extremities Extremities: Normal. No: Deformity, Tenderness - GCS Eye Opening: Spontaneous Motor: Obeys Commands Verbal: Oriented Total: 15 - Psych Psych: Intoxicated / AOB, Tearful. No: Suicidal, Homicidal Results - Vitals Vitals: Vital Signs - 24 hr 04/18/21 12:29 Temperature 36.5 C Heart Rate 114 H Respiratory 14 Rate Blood Pressure 156/115 H O2 Saturation 94 Oxygen O2 Source Room air - Labs Labs: Laboratory Tests 04/18/21 04/18/21 04/18/21 12:35 12:35 13:40 WBC RBC Hgb Hct MCV MCH MCHC RDW Plt Count MPV Neut # (Auto) Lymph # (Auto) [place] # (Auto) Eos # (Auto) Baso # (Auto) Absolute Nucleated RBC Nucleated RBC % Sodium 136 Potassium 3.3 L Chloride 98 L Carbon Dioxide 22 Anion Gap 16.0 H BUN 5 L Creatinine 0.7 Estimated GFR (MDRD) 125 Glucose 141 H Calcium 9.1 Total Bilirubin 0.7 AST 166 H ALT 88 H Alkaline Phosphatase 91 Total Protein 7.4 Albumin 4.1 Globulin 3.3 Albumin/Globulin Ratio 1.2 Lipase 27 TSH 1.89 Urine Color Urine Clarity Urine pH Ur Specific [place] Urine Protein Urine Glucose (UA) Urine Ketones Urine Occult Blood Urine Nitrite Urine Bilirubin Urine Urobilinogen Ur Leukocyte Esterase Ur Microscopic Review Urine Culture Comments Nasal Adenovirus (PCR) NOT DETECTED Nasal B. parapertussis DNA (PCR) NOT DETECTED Nasal Coronavir 229E PCR NOT DETECTED Nasal Coronavir HKU1 PCR NOT DETECTED Nasal Coronavir NL63 PCR NOT DETECTED Nasal Coronavir OC43 PCR NOT DETECTED Nasal Enterovir/Rhinovir PCR NOT DETECTED Nasal Influenza B PCR NOT DETECTED Nasal Influenza A PCR NOT DETECTED Nasal Parainfluen 1 PCR NOT DETECTED Nasal Parainfluen 2 PCR NOT DETECTED Nasal Parainfluen 3 PCR NOT DETECTED Nasal Parainfluen 4 PCR NOT DETECTED Nasal RSV (PCR) NOT DETECTED Nasal B.pertussis DNA PCR NOT DETECTED Nasal C.pneumoniae (PCR) NOT DETECTED Isacc Human Metapneumo PCR NOT DETECTED Nasal M.pneumoniae (PCR) NOT DETECTED Nasal SARS-CoV-2 (PCR) NOT DETECTED Salicylates < 6.0 Urine Opiates Screen Ur Oxycodone Screen Urine Methadone Screen Ur Propoxyphene Screen Acetaminophen < 10 L Ur Barbiturates Screen Ur Tricyclics Screen Ur Phencyclidine Scrn Ur Amphetamine Screen U Methamphetamines Scrn U Benzodiazepines Scrn Urine Cocaine Screen U Cannabinoids Screen Ethyl Alcohol 399.9 04/18/21 04/18/21 13:42 13:42 WBC 10.4 RBC 4.71 Hgb 14.7 Hct 42.9 MCV 91.1 MCH 31.2 H MCHC 34.3 RDW 14.7 Plt Count 99 L MPV 9.5 Neut # (Auto) 5.6 Lymph # (Auto) 3.7 H [place] # (Auto) 1.0 Eos # (Auto) 0.0 Baso # (Auto) 0.1 Absolute Nucleated RBC 0.00 Nucleated RBC % 0.0 Sodium Potassium Chloride Carbon Dioxide Anion Gap BUN Creatinine Estimated GFR (MDRD) Glucose Calcium Total Bilirubin AST ALT Alkaline Phosphatase Total Protein Albumin Globulin Albumin/Globulin Ratio Lipase TSH Urine Color STRAW Urine Clarity CLEAR Urine pH 6.0 Ur Specific [place] <=1.005 Urine Protein NEGATIVE Urine Glucose (UA) NEGATIVE Urine Ketones NEGATIVE Urine Occult Blood NEGATIVE Urine Nitrite NEGATIVE Urine Bilirubin NEGATIVE Urine Urobilinogen 0.2 (NORMAL) Ur Leukocyte Esterase NEGATIVE Ur Microscopic Review NOT INDICATED Urine Culture Comments NOT INDICATED Nasal Adenovirus (PCR) Nasal B. parapertussis DNA (PCR) Nasal Coronavir 229E PCR Nasal Coronavir HKU1 PCR Nasal Coronavir NL63 PCR Nasal Coronavir OC43 PCR Nasal Enterovir/Rhinovir PCR Nasal Influenza B PCR Nasal Influenza A PCR Nasal Parainfluen 1 PCR Nasal Parainfluen 2 PCR Nasal Parainfluen 3 PCR Nasal Parainfluen 4 PCR Nasal RSV (PCR) Nasal B.pertussis DNA PCR Nasal C.pneumoniae (PCR) Isacc Human Metapneumo PCR Nasal M.pneumoniae (PCR) Nasal SARS-CoV-2 (PCR) Salicylates Urine Opiates Screen NEGATIVE Ur Oxycodone Screen NEGATIVE Urine Methadone Screen NEGATIVE Ur Propoxyphene Screen NEGATIVE Acetaminophen Ur Barbiturates Screen NEGATIVE Ur Tricyclics Screen NEGATIVE Ur Phencyclidine Scrn NEGATIVE Ur Amphetamine Screen NEGATIVE U Methamphetamines Scrn NEGATIVE U Benzodiazepines Scrn POSITIVE H Urine Cocaine Screen NEGATIVE U Cannabinoids Screen NEGATIVE Ethyl Alcohol PD MEDICAL DECISION MAKING - ED course Complexity details: reviewed results, re-evaluated patient, d/w patient ED course: 40-year-old male presents emergency department after a family argument at home in which he had been drinking and became quite intoxicated. He did threaten to harm himself therefore EMS was summoned. He did endorse to EMS thoughts of self-harm but he denies that to me. He does endorse that he has been drinking heavily and is interested in rehab. On scene he did blow a positive breathalyzer of 0.218. Our screening labs here show that he is got a blood alcohol of 0.399. At this time he does not present as a danger to himself but he is not clinically sober and will need time to metabolize alcohol before we are able to reassess his mental safety. 1700: Patient is at this time requesting to be discharged from the emergency department. He no longer has thoughts of self-harm. This gentleman is requesting a Medicaid taxi to be discharged home and I have informed him that we cannot get a medic take a taxi simply to send him home. He then requested to go to detox. Therefore I asked our clinical social work therapist to speak with the patient. He was accepted at a detox in [place], but after lengthy discussion the patient then declined to go to detox and just requested to be discharged home. he woul d liek to take the bust home Though likely still intoxicated, pt contracts for safety. I can not convince him to stay any longer in the ED and I do not feel it would benefit him to stay against his will or with chemical sedation. Therefore he will be discharged home Departure - Departure Disposition: 01 Home, Self Care Clinical Impression: Alcohol abuse Condition: Stable Record reviewed to determine appropriate education?: Yes Comments: Nas unfortunately we cannot provide a Medicaid taxi simply to take you home. If at any point you feel that you would like to return to detox you may return to the emergency department and we can attempt to arrange those services.
--- OUTSIDE RECORDS SUMMARY | 2021-04-18 12:51 | EXTERNAL MEDICAL SUMMARY RPT | Continuity of Care Document ---
:1980 Demographics Phone Unavailable Preferred Language Uzbek Marital Status Unknown Jainism Affiliation Unknown Race Unknown Ethnic Group Unknown Author Organization [place] Address [address] [id number] Phone Care Team Providers Name Role Phone [place] Unavailable Unavailable Horras Unavailable Unavailable Horras Unavailable Unavailable Medications date description facility [id number] Trazodone Hydrochloride 50 MG Oral Tabl et [facility] [id number] emtricitabine 200 MG / Tenofovir disopr oxil fumarate [facility] 300 MG Oral Tablet [id number] Lisinopril 20 MG Oral Tablet [facility] [id number] Haloperidol 10 MG Oral Tablet [facility] 47948435 Haloperidol 5 MG Oral Tablet [facility] 69292506 gabapentin 300 MG Oral Capsule [facility] [id number] Lisinopril 30 MG Oral Tablet [facility] 31899129 Methocarbamol 750 MG Oral Tablet [facility] [id number] Naltrexone hydrochloride 50 MG Oral Tab let [facility] [id number] Alprazolam 1 MG Oral Tablet [facility] 76006487 Risperidone 2 MG Oral Tablet [facility] 90474444 Alprazolam 1 MG Oral Tablet [facility] 38341939 Zolpidem tartrate 10 MG Oral Tablet [facility] 95406955 Zolpidem tartrate 10 MG Oral Tablet [facility] 27814317 Lisinopril 20 MG Oral Tablet [facility] 63732434 gabapentin 300 MG Oral Capsule [facility] 82460989 Alprazolam 0.25 MG Oral Tablet [facility] 68709049 Naltrexone hydrochloride 50 MG Oral Tab let [facility] 57644750 Lisinopril 20 MG Oral Tablet [facility] 61734360 gabapentin 300 MG Oral Capsule [facility] 25734884 Alprazolam 0.25 MG Oral Tablet [facility] 07017157 Naltrexone hydrochloride 50 MG Oral Tab [facility] Problems date description facility [id number] [facility] [id number] Procedures date description facility [id number] [facility] [id number] [facility] [id number] [facility] [id number] [facility] [id number] [facility] [id number] [facility] [id number] [facility] [id number] [facility] [id number] [facility] Vital Signs date measurement value source [id number] weight_standard 149.69 lb 20210125 weight_metric 67.9 kg 20210125 height_standard 77 in 20210125 height_metric 195.58 cm 20210125 BMI 39.1 kg/m2 20210126 temperature_standard 97.9 F 20210126 temperature_metric 36.61 C 20210126 respiration_rate 20 /min 20210126 heart_rate 103 /min 20210126 BP_systolic 169 mm[Hg] 20210126 BP_diastolic 95 mm[Hg] 20210207 BMI 39.1 kg/m2 20210207 weight_standard 149.69 lb 20210207 weight_metric 67.9 kg 20210207 temperature_standard 98 F 20210207 temperature_metric 36.67 C 20210207 respiration_rate 18 /min 20210207 height_standard 77 in 20210207 height_metric 195.58 cm 20210207 heart_rate 92 /min 20210207 BP_systolic 145 mm[Hg] 20210207 BP_diastolic 88 mm[Hg] 20210207 BMI 39.1 kg/m2 20210302 temperature_standard 97 F 20210302 temperature_metric 36.11 C 20210302 respiration_rate 16 /min 20210302 height_standard 77 in 20210302 height_metric 195.58 cm 20210302 heart_rate 97 /min 20210302 BP_systolic 152 mm[Hg] 20210302 BP_diastolic 80 mm[Hg] 20210319 weight_standard 137.55 lb 20210319 weight_metric 62.39 kg 20210319 temperature_standard 97.7 F 20210319 temperature_metric 36.5 C 20210319 respiration_rate 16 /min 20210319 height_standard 77 in 20210319 height_metric 195.58 cm 20210319 heart_rate 91 /min 20210319 BP_systolic 144 mm[Hg] 20210319 BP_diastolic 74 mm[Hg] 20210319 BMI 35.9 kg/m2 20210323 weight_standard 136.08 lb 20210323 weight_metric 61.72 kg 20210323 temperature_standard 97.9 F 20210323 temperature_metric 36.61 C 20210323 respiration_rate 18 /min 20210323 height_standard 77 in 20210323 height_metric 195.58 cm 20210323 heart_rate 83 /min 20210323 BP_systolic 127 mm[Hg] 20210323 BP_diastolic 77 mm[Hg] 20210323 BMI 35.5 kg/m2
[2021-04-18 13:44] LABS: MUDS CUTOFF CONCENTRATIONS CUTOFF CONC BELOW:
[2021-04-18 13:45] LABS: BASOPHILS # (AUTO) 0.1 10^3/uL (0.0-0.1); BASOPHILS % (AUTO) 0.5 %; EOSINOPHILS % (AUTO) 0.2 %; HCT - HEMATOCRIT 42.9 % (42.0-52.0); HGB - HEMOGLOBIN 14.7 g/dL (14.0-18.0); LYMPHOCYTES # (AUTO) 3.7 10^3/uL (1.5-3.5); LYMPHOCYTES % (AUTO) 35.3 %; MEAN CORPUSCULAR HEMOGLOBIN 31.2 pg (27.0-31.0); MEAN CORPUSCULAR HGB CONC 34.3 g/dL (32.0-36.0); MEAN CORPUSCULAR VOLUME 91.1 fL (80.0-94.0); MEAN PLATELET VOLUME 9.5 fL (7.4-11.4); MONOCYTES % (AUTO) 9.8 %; NEUTROPHILS # (AUTO) 5.6 10^3/uL (1.5-6.6); NEUTROPHILS % (AUTO) 53.9 %; PLT - PLATELET COUNT 99 10^3/uL (130-450); RED BLOOD COUNT 4.71 10^6/uL (4.70-6.10); RED CELL DISTRIBUTION WIDTH 14.7 % (12.0-15.0); WHITE BLOOD COUNT 10.4 x10^3/uL (4.8-10.8)
[2021-04-18 13:46] LABS: BILIRUBIN,URINE NEGATIVE (NEGATIVE); GLUCOSE, URINE (UA) NEGATIVE (NEGATIVE); KETONES,URINE (UA) NEGATIVE (NEGATIVE); LEUKOCYTE ESTERASE, URINE NEGATIVE (NEGATIVE); NITRITE,URINE NEGATIVE (NEGATIVE); OCCULT BLOOD,URINE NEGATIVE (NEGATIVE); PROTEIN,URINE NEGATIVE (NEGATIVE); UROBILINOGEN,URINE 0.2 (NORMAL) E.U./dL (NORMAL)
[2021-04-18 13:48] LABS: CLARITY,URINE CLEAR (CLEAR)
[2021-04-18 13:50] LABS: ACETAMINOPHEN < 10 ug/mL (10-30); ALBUMIN 4.1 g/dL (3.2-5.5); ALBUMIN/GLOBULIN RATIO 1.2 (1.0-2.2); ALKALINE PHOSPHATASE 91 IU/L (42-121); ALT ALANINE AMINOTRANSFERASE 88 IU/L (10-60); AST ASPARTATE AMINOTRANSFERASE 166 IU/L (10-42); BILIRUBIN,TOTAL 0.7 mg/dL (0.2-1.0); BUN - BLOOD UREA NITROGEN 5 mg/dL (6-20); CALCIUM 9.1 mg/dL (8.5-10.3); CARBON DIOXIDE - CO2 22 mmol/L (21-32); CHLORIDE 98 mmol/L (101-111); CREATININE 0.7 mg/dL (0.6-1.2); ETOH - ETHANOL 399.9 mg/dL; GFR - MDRD 125 (>89); GLUCOSE 141 mg/dL (70-100); LIPASE 27 U/L (22-51); POTASSIUM 3.3 mmol/L (3.5-5.0); SALICYLATE < 6.0 mg/dL; SODIUM 136 mmol/L (135-145); TOTAL PROTEIN 7.4 g/dL (6.7-8.2)
[2021-04-18 13:57] LABS: AMPHETAMINE SCREEN,URINE NEGATIVE (NEGATIVE); BARBITURATE SCREEN,UR NEGATIVE (NEGATIVE); BENZODIAZEPINES SCREEN, URINE POSITIVE (NEGATIVE); COCAINE SCREEN URINE NEGATIVE (NEGATIVE); METHADONE SCREEN, URINE NEGATIVE (NEGATIVE); METHAMPHETAMINES SCREEN, URINE NEGATIVE (NEGATIVE); OPIATE SCREEN, URINE NEGATIVE (NEGATIVE); THC CANNABINOID SCREEN, URINE NEGATIVE (NEGATIVE); TRICYCLIC ANTIDEPRESSANT,URINE NEGATIVE (NEGATIVE)
[2021-04-18 13:58] LABS: OXYCODONE SCREEN, URINE NEGATIVE (NEGATIVE); PROPOXYPHENE SCREEN, URINE NEGATIVE (NEGATIVE)
[2021-04-18 14:43] LABS: B. PARAPERTUSSIS- RESP PCR PAN NOT DETECTED; B. PERTUSSIS- RESP PCR PANEL NOT DETECTED; C. PNEUMONIAE- RESP PCR PANEL NOT DETECTED; CORONAVIRUS 229E-RESP PCR NOT DETECTED; CORONAVIRUS HKU1-RESP PCR NOT DETECTED; CORONAVIRUS NL63-RESP PCR NOT DETECTED; CORONAVIRUS OC43-RESP PCR NOT DETECTED; HUMAN METAPNEUMOVIRUS NOT DETECTED; INFLUENZA A- RESP PCR PANEL NOT DETECTED; INFLUENZA B - RESP PCR PANEL NOT DETECTED; M. PNEUMONIAE- RESP PCR PANEL NOT DETECTED; PARAINFLUENZA VIRUS 1 NOT DETECTED; PARAINFLUENZA VIRUS 2 NOT DETECTED; PARAINFLUENZA VIRUS 3 NOT DETECTED; PARAINFLUENZA VIRUS 4 NOT DETECTED; RHINOVIRUS/ENTEROVIRUS NOT DETECTED; RSV- RESP PCR PANEL NOT DETECTED; SARS-CoV-2 -RESP PCR PANEL NOT DETECTED
== END 2021-04-18 18:30 | disposition home or self-care (01) ==
LOC: EDUNIT# → ED 12:25
DX: F10.129 Alcohol abuse with intoxication, unspecified (principal); Z20.822 Contact with and (suspected) exposure to COVID-19
CPT/HCPCS: 0202U; 36415; 80053; 80306; 80307; 80320; 80329; 81003; 83690; 84443; 85025; 99281; 99283; 81001; 87086

== ENCOUNTER 2021-04-19 13:01 | Outpatient (CLI) | payer MEDICAID | END 2021-04-19 13:02 | disposition critical access hospital (66) | LOC: EMS 13:01 | DX: R40.4 Transient alteration of awareness (principal) | CPT/HCPCS: A0425; A0429; A0999 ==

== ENCOUNTER 2021-04-19 13:05 | Inpatient (IN) | payer MEDICAID ==
[2021-04-19] MEDS ORDERED: ROCURONIUM 50 MG/5 ML VIAL ONE (13:11)
[2021-04-19] MEDS ORDERED: PROPOFOL 200 MG/20 ML VIAL IVP ONE (13:11)
[2021-04-19] MEDS ORDERED: PROPOFOL 500 MG/50 ML 500 MG/50 ML VIAL ONE (13:11)
--- OUTSIDE RECORDS SUMMARY | 2021-04-19 13:20 | EXTERNAL MEDICAL SUMMARY RPT | Continuity of Care Document ---
:1980 Demographics Phone Unavailable Preferred Language [place] Marital Status Unknown Rastafarian Affiliation Unknown Race Unknown Ethnic Group Unknown Author Organization [place] Address [address] [phone] Phone Care Team Providers Name Role Phone Jared Bauer Unavailable Unavailable Wilfredo Nair Unavailable Unavailable Jared Bauer Unavailable Unavailable Medications date description facility [id number] Trazodone Hydrochloride 50 MG Oral Tabl et [facility] 97978342 emtricitabine 200 MG / Tenofovir disopr oxil fumarate [facility] 300 MG Oral Tablet 07299950 Lisinopril 20 MG Oral Tablet [facility] 62350178 Haloperidol 10 MG Oral Tablet [facility] 53460404 Haloperidol 5 MG Oral Tablet [facility] 76412530 gabapentin 300 MG Oral Capsule [facility] 63373840 Lisinopril 30 MG Oral Tablet [facility] 21103558 Methocarbamol 750 MG Oral Tablet [facility] 31815391 Naltrexone hydrochloride 50 MG Oral Tab let [facility] 07111532 Alprazolam 1 MG Oral Tablet [facility] 20358427 Risperidone 2 MG Oral Tablet [facility] 80205606 Alprazolam 1 MG Oral Tablet [facility] 63233066 Zolpidem tartrate 10 MG Oral Tablet [facility] 26839319 Zolpidem tartrate 10 MG Oral Tablet [facility] 08574126 Lisinopril 20 MG Oral Tablet [facility] 22344061 gabapentin 300 MG Oral Capsule [facility] 88831649 Alprazolam 0.25 MG Oral Tablet [facility] 43013072 Naltrexone hydrochloride 50 MG Oral Tab let [facility] 18951546 Lisinopril 20 MG Oral Tablet [facility] 52800483 gabapentin 300 MG Oral Capsule [facility] 20933763 Alprazolam 0.25 MG Oral Tablet [facility] 01531238 Naltrexone hydrochloride 50 MG Oral Tab [facility] Problems date description facility [id number] [facility] 927[facility] Procedures date description facility [id number] [facility] [id number] [facility] [id number] [facility] [id number] [facility] [id number] [facility] [id number] [facility] [id number] [facility] [id number] [facility] 20210119 [facility] Vital Signs date measurement value source 20210125 weight_standard 149.69 lb 20210125 weight_metric 67.9 kg [...] height_metric 195.58 cm 20210323 heart_rate 83 /min 83449817 BP_systolic 127 mm[Hg] 20210323 BP_diastolic 77 mm[Hg] 20210323 BMI 35.5 kg/m2
[2021-04-19] MEDS ORDERED: PROPOFOL 500 MG/50 ML 500 MG/50 ML VIAL IV STA ×2 (13:22→15:58)
[2021-04-19] MEDS ORDERED: SODIUM CHLORIDE 0.9% 1,000 ML IV STA ×2 (13:22)
[2021-04-19] MEDS ORDERED: ROCURONIUM 500 MG in SODIUM CHLORIDE 0.9% 100ML 50 ML IV STA (13:22)
[2021-04-19] MEDS ORDERED: ROCURONIUM 50 MG/5 ML VIAL IVP STA (13:38)
--- NOTE | 2021-04-19 13:51 | ED Physician Documentation ---
History of Present Illness - Stated complaint Stated Complaint: UNRESPONSIVE - History obtained from History obtained from: EMS - History of Present Illness Timing: Today - Additonal information Additional information: Patient is a 40-year-old male brought in by EMS for unresponsiveness today. Longstanding history of mental illness. [place] un[place]. A bottle of alprazolam was nearby. History of heavy alcohol use as well. Review of Systems Unable to obtain: Unresponsive PD PAST MEDICAL HISTORY - Past Medical History Cardiovascular: Hypertension Respiratory: None Neuro: Seizure disorder GI: GERD Psych: Depression, Anxiety, Post traumatic stress disorder, Other Musculoskeletal: Chronic back pain - Past Surgical History Past Surgical History: No - Present Medications Home Medications: Ambulatory Orders Medication Instructions Recorded Confirmed traZODone [Desyrel] 50 mg PO QPM PRN 10/07/20 04/19/21 Alprazolam [Xanax] 1 mg PO TID PRN 04/19/21 04/19/21 Emtricitabine/Tenofovir (Tdf) 1 tab PO DAILY 04/19/21 04/19/21 [Emtricitabine-Tenofv 200-300Mg] Escitalopram Oxalate [Lexapro] 20 mg PO DAILY 04/19/21 04/19/21 Gabapentin [Neurontin] 300 mg PO TID PRN 04/19/21 04/19/21 Lisinopril [Zestril] 30 mg PO DAILY 04/19/21 04/19/21 Naltrexone HCl 100 mg PO DAILY 04/19/21 04/19/21 methocarbamoL [Methocarbamol] 750 mg PO TID PRN 04/19/21 04/19/21 risperiDONE [Risperdal] 4 mg PO QPM 04/19/21 04/19/21 - Allergies Allergies/Adverse Reactions: Allergies Allergy/AdvReac Type Severity Reaction Status Date / Time tramadol Allergy Unknown Verified 04/18/21 12:33 - Social History Does the pt smoke?: No Smoking Status: Never smoker Does the pt drink ETOH?: Yes Does the pt have substance abuse?: No - POLST Patient has POLST: No PD ED PE NORMAL - Vitals Vital signs reviewed: Yes - General General: Other (unresponsive) - HEENT HEENT: Moist mucous membranes, Other (mid pupils) - Neck Neck: Supple, no meningeal sign, Other (no step off or derformity.) - Cardiac Cardiac: RRR, Strong equal pulses - Respiratory Respiratory: No respiratory distress, Clear bilaterally - Abdomen Abdomen: Soft, Non distended - Back Back: Other (no step off or derformity.) - Derm Derm: Warm and dry - Extremities Extremities: No deformity - Neuro Eye Opening: None Motor: None Verbal: None GCS Score: 3 Results - Vitals Vitals: Vital Signs - 24 hr 04/19/21 04/19/21 04/19/21 13:13 13:20 13:44 Heart Rate 108 H 120 H 107 H Respiratory 24 25 H Rate Blood Pressure 134/90 H 138/88 H O2 Saturation 100 98 04/19/21 04/19/21 04/19/21 14:05 14:40 15:54 Heart Rate 111 H 98 99 Respiratory 14 20 20 Rate Blood Pressure 105/65 89/63 L 90/60 O2 Saturation 99 99 95 Oxygen O2 Source Room air - EKG (time done) 1334 Rate: Rate (enter#) (111) Rhythm: Sinus tachycardia [place]: Normal Intervals: Normal MO QRS: Normal Ischemia: ST elevation c/w repol - Labs Labs: Laboratory Tests 04/19/21 04/19/21 04/19/21 13:54 13:54 13:54 WBC 6.8 RBC 4.72 Hgb 14.8 Hct 43.8 MCV 92.8 MCH 31.4 H MCHC 33.8 RDW 15.4 H Plt Count 113 L MPV 9.2 Neut # (Auto) 2.9 Lymph # (Auto) 3.3 [place] # (Auto) 0.5 Eos # (Auto) 0.0 Baso # (Auto) 0.1 Absolute Nucleated RBC 0.00 Nucleated RBC % 0.0 Bld Gas Analysis Time Sample Site ABG pH ABG pCO2 ABG pO2 ABG HCO3 ABG Total CO2 ABG O2 Saturation ABG Base Excess Mark Test Respiration Rate O2 Delivery Device Vent Mode FiO2 Tidal Volume PEEP Sodium 141 Potassium 3.5 Chloride 101 Carbon Dioxide 22 Anion Gap 18.0 H BUN < 5 L Creatinine 0.8 Estimated GFR (MDRD) 107 Glucose 117 H Calcium 8.6 Total Bilirubin 1.1 H AST 163 H ALT 77 H Alkaline Phosphatase 100 Total Protein 7.6 Albumin 4.2 Globulin 3.4 Albumin/Globulin Ratio 1.2 Lipase 24 TSH 1.09 Urine Color Urine Clarity Urine pH Ur Specific [place] Urine Protein Urine Glucose (UA) Urine Ketones Urine Occult Blood Urine Nitrite Urine Bilirubin Urine Urobilinogen Ur Leukocyte Esterase Ur Microscopic Review Urine Culture Comments Salicylates < 6.0 Acetaminophen < 10 L Ethyl Alcohol 595.9 H* 04/19/21 04/19/21 14:00 16:24 WBC RBC Hgb Hct MCV MCH MCHC RDW Plt Count MPV Neut # (Auto) Lymph # (Auto) [place] # (Auto) Eos # (Auto) Baso # (Auto) Absolute Nucleated RBC Nucleated RBC % Bld Gas Analysis Time 1408 Sample Site RIGHT RADIAL ABG pH 7.32 L ABG pCO2 45 ABG pO2 62 L ABG HCO3 22.7 ABG Total CO2 24.1 ABG O2 Saturation 84 L* ABG Base Excess -3.6 L Mark Test POSITIVE Respiration Rate 20 O2 Delivery Device VENTILATOR Vent Mode SIMV FiO2 60.00 Tidal Volume 750 PEEP 5 Sodium Potassium Chloride Carbon Dioxide Anion Gap BUN Creatinine Estimated GFR (MDRD) Glucose Calcium Total Bilirubin AST ALT Alkaline Phosphatase Total Protein Albumin Globulin Albumin/Globulin Ratio Lipase TSH Urine Color YELLOW Urine Clarity CLEAR Urine pH 6.0 Ur Specific [place] <=1.005 Urine Protein 30 H Urine Glucose (UA) NEGATIVE Urine Ketones NEGATIVE Urine Occult Blood TRACE-INTA Urine Nitrite NEGATIVE Urine Bilirubin NEGATIVE Urine Urobilinogen 0.2 (NORMAL) Ur Leukocyte Esterase NEGATIVE Ur Microscopic Review INDICATED Urine Culture Comments Not Reportable Salicylates Acetaminophen Ethyl Alcohol - Rads (name of study) cxr Radiology: Prelim report reviewed, EMP read contemporaneously, See rad report head CT Radiology: Prelim report reviewed, EMP read contemporaneously, See rad report (no acute intracranial abnormality. No intracranial bleed or skull fracture. ) chest w/o CT Radiology: Prelim report reviewed, EMP read contemporaneously, See rad report Procedures - Intubation Provider: Emergency physician Medications: Propofol, Rocuronium Blade: Glidescope Tube: Size-enter number (8), Cuffed Route: Oral Confirmation: Direct visualization, Bilateral breath sounds, No abdominal breath sound, End tidal CO2, Pulse ox, Chest xray Complications: Right mainstem (pulled back 3cm after initial CXR) PD MEDICAL DECISION MAKING - ED course Complexity details: reviewed old records, reviewed results, re-evaluated patient, considered differential, d/w immigration consultant ED course: Patient with respiratory failure, GCS of 3. Secondary to alcohol intoxication and likely drug overdose. Possible aspiration on chest x-ray. Patient was intubated for airway protection. Maintained on the ventilator. The initial endotracheal tube was withdrawn 3 cm. Patient will need admission for further care. Discussed with Dr. Ellis, hospitalist who accepts This document was made in part using voice recognition software. While efforts are made to proofread this document, sound alike and grammatical errors may occur. 1. There is a triangular-shape airspace density in the posterior segment of right upper lobe. compatible with consolidations and/or atelectasis. 2. Trace pleural effusions bilaterally with bibasilar tendon atelectasis. 3. Endotracheal tube tip is 2 cm above layla. 4. Hepatic steatosis. 5. Distended gallbladder. Departure - Departure Disposition: 66 [facility] DC/Xfer Clinical Impression: Drug overdose Qualifiers: Encounter type: initial encounter Injury intent: undetermined intent Qualified Code(s): T50.904A - Poisoning by unspecified drugs, medicaments and biological substances, undetermined, initial encounter Alcohol intoxication Qualifiers: Complication of substance-induced condition: uncomplicated Qualified Code(s): F10.920 - Alcohol use, unspecified with intoxication, uncomplicated Respiratory failure Qualifiers: Chronicity: acute Respiratory failure complication: unspecified whether with hypoxia or hypercapnia Qualified Code(s): J96.00 - Acute respiratory failure, unspecified whether with hypoxia or hypercapnia Condition: Stable
[2021-04-19 14:05] LABS: BASOPHILS # (AUTO) 0.1 10^3/uL (0.0-0.1); BASOPHILS % (AUTO) 0.7 %; EOSINOPHILS % (AUTO) 0.3 %; HCT - HEMATOCRIT 43.8 % (42.0-52.0); HGB - HEMOGLOBIN 14.8 g/dL (14.0-18.0); LYMPHOCYTES # (AUTO) 3.3 10^3/uL (1.5-3.5); MEAN CORPUSCULAR HEMOGLOBIN 31.4 pg (27.0-31.0); MEAN CORPUSCULAR HGB CONC 33.8 g/dL (32.0-36.0); MEAN CORPUSCULAR VOLUME 92.8 fL (80.0-94.0); MEAN PLATELET VOLUME 9.2 fL (7.4-11.4); MONOCYTES # (AUTO) 0.5 10^3/uL (0.0-1.0); NEUTROPHILS # (AUTO) 2.9 10^3/uL (1.5-6.6); NEUTROPHILS % (AUTO) 42.9 %; PLT - PLATELET COUNT 113 10^3/uL (130-450); RED BLOOD COUNT 4.72 10^6/uL (4.70-6.10); RED CELL DISTRIBUTION WIDTH 15.4 % (12.0-15.0); WHITE BLOOD COUNT 6.8 x10^3/uL (4.8-10.8)
--- NOTE | 2021-04-19 14:07 | XRAY Report ---
PROCEDURE: Chest for Line Placement INDICATIONS: s/p intubation TECHNIQUE: One view of the chest was acquired. COMPARISON: Chest x-ray one view, 11/02/2020. FINDINGS: Surgical changes and devices: There is an endotracheal tube with the tip projecting to the right main stem bronchus. Lungs and pleura: Right upper lobe is collapsed. No pleural effusions or pneumothorax. Mediastinum: Mediastinal contours appear normal. Heart size is normal. Bones and chest wall: No suspicious bony lesions. Overlying soft tissues appear unremarkable. IMPRESSION: The endotracheal tube tip projects to the right mainstem bronchus. The result was discussed with Dr. Salgado. Reviewed by: Carmel Cueva MD on 04/19/2021 2:05 PM PDT Approved by: Carmel Cueva MD on 04/19/2021 2:05 PM PDT Station ID: [id number]
[2021-04-19 14:11] LABS: ABG HCO3 22.7 mmol/L (22.0-26.0); ABG PCO2 45 mmHg (34-45); ABG PH 7.32 (7.35-7.45); ABG PO2 62 mmHg (80-100); ABG TCO2 24.1 MMOL/L (21.0-29.0)
[2021-04-19 14:12] LABS: ABG BASE EXCESS -3.6 mmol/L (-2.0-3.0); ABG MODE OF VENTILATION SIMV; ABG RESPIRATORY RATE 20 b/min; ALLEN TEST POSITIVE
[2021-04-19 14:16] LABS: ABG OXYGEN SATURATION 84 % (94-98)
[2021-04-19 14:44] LABS: ACETAMINOPHEN < 10 ug/mL (10-30); ALBUMIN 4.2 g/dL (3.2-5.5); ALBUMIN/GLOBULIN RATIO 1.2 (1.0-2.2); ALKALINE PHOSPHATASE 100 IU/L (42-121); ALT ALANINE AMINOTRANSFERASE 77 IU/L (10-60); AST ASPARTATE AMINOTRANSFERASE 163 IU/L (10-42); BILIRUBIN,TOTAL 1.1 mg/dL (0.2-1.0); BUN - BLOOD UREA NITROGEN < 5 mg/dL (6-20); CALCIUM 8.6 mg/dL (8.5-10.3); CARBON DIOXIDE - CO2 22 mmol/L (21-32); CHLORIDE 101 mmol/L (101-111); CREATININE 0.8 mg/dL (0.6-1.2); GFR - MDRD 107 (>89); GLUCOSE 117 mg/dL (70-100); LIPASE 24 U/L (22-51); POTASSIUM 3.5 mmol/L (3.5-5.0); SALICYLATE < 6.0 mg/dL; SODIUM 141 mmol/L (135-145); TOTAL PROTEIN 7.6 g/dL (6.7-8.2)
[2021-04-19 14:46] LABS: ETOH - ETHANOL 595.9 mg/dL
--- NOTE | 2021-04-19 15:06 | CT Report ---
PROCEDURE: HEAD WO INDICATIONS: aloc TECHNIQUE: Noncontrast 4.5 mm thick angled axial sections acquired from the foramen magnum to the vertex. For r adiation dose reduction, the following was used: automated exposure control, adjustment of mA and/or kV according to patient size. COMPARISON: CT head without contrast, 08/01/2020. FINDINGS: Image quality: Excellent. CSF spaces: Basal cisterns are patent. No extra-axial fluid collections. Ventricles are normal in size and shape. Brain: No midline shift. No intracranial masses or hemorrhage. Buchanan-white matter interface is norm al. Skull and face: Calvarium and visualized facial bones are intact, without suspicious lesions. Sinuses: Visualized sinuses and mastoids are clear. IMPRESSION: Acute intracranial abnormality. No intracranial bleed or skull fracture. Reviewed by: Carmel Cueva MD on 04/19/2021 3:05 PM PDT Approved by: Carmel Cueva MD on 04/19/2021 3:05 PM PDT Station ID: [id number]
--- NOTE | 2021-04-19 15:19 | CT Report ---
PROCEDURE: CHEST WO INDICATIONS: Abnormal Chest Xray TECHNIQUE: Noncontrast 5 mm thick sections acquired from the pulmonary apices to the posterior costophrenic angl es. 7 mm thick coronal and sagittal MIP reformats were then acquired. For radiation dose reduction, the following was used: automated exposure control, adjustment of mA and/or kV according to patient size. COMPARISON: Chest x-ray one view, 04/29/2021 FINDINGS: Image quality: Excellent. Lungs and pleura: There is a triangular-shaped density in the posterior segment of the right upper l obe, compatible with consolidation and/or atelectasis. Trace pleural effusions bilaterally with depen dent atelectasis at lung bases. No pneumothorax. There is an ET tube with the tip 2 cm above layla . Central and peripheral airways are patent and normal in caliber. Mediastinum: Heart size is normal. No pericardial effusion. No mediastinal adenopathy by size crit eria. Thoracic aorta and central pulmonary arteries are normal in size. Esophagus is normal in enoc ana paula. No hiatal hernia. Bones and chest wall: No suspicious bony lesions. No vertebral body compression fractures. Old rig ht tensor fracture is noted. No axillary or supraclavicular adenopathy by size criteria. The thyroid is normal in size and there are no incidental findings. Abdomen: There is hepatic steatosis. Call bladder is distended. Other visualized upper abdominal steve id organs and bowel loops appear normal in the absence of contrast. IMPRESSION: 1. There is a triangular-shape airspace density in the posterior segment of right upper lobe compatib le with consolidations and/or atelectasis. 2. Trace pleural effusions bilaterally with bibasilar tendon atelectasis. 3. Endotracheal tube tip is 2 cm above layla. 4. Hepatic steatosis. 5. Distended gallbladder. CLINICAL RECOMMENDATION STATEMENTS: In patients <35 years with an ITN detected on CT, MRI, or extrathyroidal ultrasound, the Committee re commends further evaluation with dedicated thyroid ultrasound if the nodule is ?1 cm and has no suspi cious imaging features, and if the patient has normal life expectancy. In patients ?35 years with an ITN detected on CT, MRI, or extrathyroidal ultrasound, the Committee re commends further evaluation with dedicated thyroid ultrasound if the nodule is ?1.5 cm and has no ángel picious imaging features, and if the patient has normal life expectancy. (ACR, 2014) Reviewed by: Carmel Cueva MD on 04/19/2021 3:18 PM PDT Approved by: Carmel Cueva MD on 04/19/2021 3:18 PM PDT Station ID: [id number]
--- NOTE | 2021-04-19 15:33 | PHARMACY PROGRESS NOTE ---
- Best Possible Medication History Admit Date and Time: Pt in ED Processed by: Pharmacy Medication History completed: Yes Patient Interview: Pt unable to participate Secondary Source(s): Pharmacy records, Insurance records As the person ultimately responsible for medication therapy, providers are able to order a medication from an existing home medication list in [facility] via the "Reconcile Routine" prior to Confirmation of that medication by ground support equipment mechanic. Such practice is discouraged except when the physician, in their clinical judgment, deems that a medical need exists for a medication without regard to previous use.
[2021-04-19 16:32] LABS: MUDS CUTOFF CONCENTRATIONS CUTOFF CONC BELOW:
[2021-04-19 16:37] LABS: BILIRUBIN,URINE NEGATIVE (NEGATIVE); CLARITY,URINE CLEAR (CLEAR); GLUCOSE, URINE (UA) NEGATIVE (NEGATIVE); KETONES,URINE (UA) NEGATIVE (NEGATIVE); LEUKOCYTE ESTERASE, URINE NEGATIVE (NEGATIVE); NITRITE,URINE NEGATIVE (NEGATIVE); OCCULT BLOOD,URINE TRACE-INTA (NEGATIVE); PROTEIN,URINE 30 mg/dL (NEGATIVE); UROBILINOGEN,URINE 0.2 (NORMAL) E.U./dL (NORMAL)
[2021-04-19 16:44] LABS: BACTERIA,URINE None Seen /HPF (None Seen); MUCUS,URINE Few Strands; RBC,URINE 0-5 /HPF (0-5); SQUAMOUS EPITHELIAL CELL,UR RARE Squamous (<= Few); WBC,URINE 0-3 /HPF (0-3)
[2021-04-19 16:46] LABS: AMPHETAMINE SCREEN,URINE NEGATIVE (NEGATIVE); BARBITURATE SCREEN,UR NEGATIVE (NEGATIVE); BENZODIAZEPINES SCREEN, URINE POSITIVE (NEGATIVE); COCAINE SCREEN URINE NEGATIVE (NEGATIVE); METHADONE SCREEN, URINE NEGATIVE (NEGATIVE); METHAMPHETAMINES SCREEN, URINE NEGATIVE (NEGATIVE); OPIATE SCREEN, URINE NEGATIVE (NEGATIVE); OXYCODONE SCREEN, URINE NEGATIVE (NEGATIVE); PROPOXYPHENE SCREEN, URINE NEGATIVE (NEGATIVE); THC CANNABINOID SCREEN, URINE NEGATIVE (NEGATIVE); TRICYCLIC ANTIDEPRESSANT,URINE NEGATIVE (NEGATIVE)
[2021-04-19 17:32] LABS: B. PARAPERTUSSIS- RESP PCR PAN NOT DETECTED; B. PERTUSSIS- RESP PCR PANEL NOT DETECTED; C. PNEUMONIAE- RESP PCR PANEL NOT DETECTED; CORONAVIRUS 229E-RESP PCR NOT DETECTED; CORONAVIRUS HKU1-RESP PCR NOT DETECTED; CORONAVIRUS NL63-RESP PCR NOT DETECTED; CORONAVIRUS OC43-RESP PCR NOT DETECTED; HUMAN METAPNEUMOVIRUS NOT DETECTED; INFLUENZA A- RESP PCR PANEL NOT DETECTED; INFLUENZA B - RESP PCR PANEL NOT DETECTED; M. PNEUMONIAE- RESP PCR PANEL NOT DETECTED; PARAINFLUENZA VIRUS 1 NOT DETECTED; PARAINFLUENZA VIRUS 2 NOT DETECTED; PARAINFLUENZA VIRUS 3 NOT DETECTED; PARAINFLUENZA VIRUS 4 NOT DETECTED; RHINOVIRUS/ENTEROVIRUS NOT DETECTED; RSV- RESP PCR PANEL NOT DETECTED; SARS-CoV-2 -RESP PCR PANEL NOT DETECTED
--- OUTSIDE RECORDS SUMMARY | 2021-04-19 17:50 | EXTERNAL MEDICAL SUMMARY RPT | Continuity of Care Document ---
:1980 Demographics Phone Unavailable Preferred Language Polish Marital Status Unknown Mormonism Affiliation Unknown Race Unknown Ethnic Group Unknown Author Organization [facility] Address [address] [phone] Phone Care Team Providers Name Role Phone [place] Unavailable Unavailable Horras Unavailable Unavailable Horras Unavailable Unavailable Medications date description facility [id number] Trazodone Hydrochloride 50 MG Oral Tabl et [facility] [id number] emtricitabine 200 MG / Tenofovir disopr oxil fumarate [facility] 300 MG Oral Tablet [id number] Lisinopril 20 MG Oral Tablet [facility] 29406559 Haloperidol 10 MG Oral Tablet [facility] [id number] Haloperidol 5 MG Oral Tablet [facility] 27912224 gabapentin 300 MG Oral Capsule [facility] 14984337 Lisinopril 30 MG Oral Tablet [facility] 70871681 Methocarbamol 750 MG Oral Tablet [facility] 99959587 Naltrexone hydrochloride 50 MG Oral Tab let [facility] 52983142 Alprazolam 1 MG Oral Tablet [facility] 13834153 Risperidone 2 MG Oral Tablet [facility] 14088575 Alprazolam 1 MG Oral Tablet [facility] pital 55769675 Zolpidem tartrate 10 MG Oral Tablet [facility] 68173152 Zolpidem tartrate 10 MG Oral Tablet [facility] [id number] Lisinopril 20 MG Oral Tablet [facility] 44232030 gabapentin 300 MG Oral Capsule [facility] [id number] Alprazolam 0.25 MG Oral Tablet [facility] 58514293 Naltrexone hydrochloride 50 MG Oral Tab let [facility] [id number] Lisinopril 20 MG Oral Tablet [facility] 28081101 gabapentin 300 MG Oral Capsule [facility] 10931295 Alprazolam 0.25 MG Oral Tablet [facility] 28954349 Naltrexone hydrochloride 50 MG Oral Tab [facility] Problems date description [id number] [id number] Procedures date description facility [id number] [facility] [id number] [facility] [id number] [facility] [id number] [facility] [id number] [facility] [id number] [facility] [id number] [facility] [id number] [facility] [id number] [facility] Vital Signs date measurement value source [id number] weight_standard 149.69 lb 20210125 weight_metric 67.9 kg [...]
[2021-04-19] MEDS: D5NS W/20 MEQ KCL 1,000 ML IV SCH (19:00)
--- NOTE | 2021-04-19 19:54 | HISTORY & PHYSICAL EXAMINATION ---
Chief Complaint - Chief Complaint Chief Complaint: unresponsive History of Present Illness - Admitted From Admitted From:: [facility] ED - History Obtained From Records Reviewed: yes History obtained from: ED provider's H&P Exam Limitations: sedated and intubated due to unresponsiveness - History of Present Illness HPI Comment/Other: Per Dr. Wang's H&P: Patient is a 40-year-old male brought in by EMS for unresponsiveness today. Longstanding history of mental illness. [place] un[place] A bottle of alprazolam was nearby. History of heavy alcohol use as well. Up in the ED showed a blood alcohol level of 595.9. Patient was also positive for benzodiazepines. ABG showed pH of 7.32, PO2 sixty-two, PCO2 forty-five, bicarb 22.7.Patient had a GCS of 3. Currently he was intubated and presented for admission for further management. At bedside he is resting comfortably. History - Past Medical History Cardiovascular: reports: Hypertension Respiratory: reports: None Neuro: reports: Seizure disorder GI: reports: GERD Psych: reports: Depression, Anxiety, Post traumatic stress disorder, Other Musculoskeletal: reports: Chronic back pain MRSA Hx?: No Other Past Medical History: Social and family history cannot be obtained because the patient is currently sedated and intubated. - POLST Patient has POLST: No POLST Status: Full Code Meds/Allgy - Home Medications Home Medications: Ambulatory Orders Medication Instructions Recorded Confirmed traZODone [Desyrel] 50 mg PO QPM PRN 10/07/20 04/19/21 Alprazolam [Xanax] 1 mg PO TID PRN 04/19/21 04/19/21 Emtricitabine/Tenofovir (Tdf) 1 tab PO DAILY 04/19/21 04/19/21 [Emtricitabine-Tenofv 200-300Mg] Escitalopram Oxalate [Lexapro] 20 mg PO DAILY 04/19/21 04/19/21 Gabapentin [Neurontin] 300 mg PO TID PRN 04/19/21 04/19/21 Lisinopril [Zestril] 30 mg PO DAILY 04/19/21 04/19/21 Naltrexone HCl 100 mg PO DAILY 04/19/21 04/19/21 methocarbamoL [Methocarbamol] 750 mg PO TID PRN 04/19/21 04/19/21 risperiDONE [Risperdal] 4 mg PO QPM 04/19/21 04/19/21 - Allergies Allergies/Adverse Reactions: Allergies Allergy/AdvReac Type Severity Reaction Status Date / Time tramadol Allergy Unknown Verified 04/18/21 12:33 Review of Systems - Other Findings Other Findings: A 12 point reviiew of system is limited because the patient is currently sedated and intubated. Prior Level of Functionality: Patient is normally independent of activities of daily living. Exam - Vital Signs Vital Signs: Vital Signs x48h Temp Pulse Pulse Resp BP BP Pulse Ox 04/19/21 19:00 91 14 106/68 98 04/19/21 18:35 36.7 C 89 14 04/19/21 15:54 99 20 90/60 95 04/19/21 14:40 98 20 89/63 L 99 04/19/21 14:05 111 H 14 105/65 99 04/19/21 13:44 107 H 04/19/21 13:20 120 H 25 H 138/88 H 98 04/19/21 13:13 108 H 24 134/90 H 100 - Physical Exam General Appearance: positive: No acute distress Eyes Bilateral: positive: PERRL Neck: positive: No JVD, Trachea midline Respiratory: positive: Breath sounds nml. negative: Wheezes, Rales, Rhonchi Cardiovascular: positive: Regular rate & rhythm, No murmur Abdomen: positive: Non-tender, No organomegaly, Nml bowel sounds, No distention. negative: Guarding, Rebound Back: positive: Nml inspection Skin: positive: Color nml, No rash, Warm, Dry Extremities: positive: Non-tender, Full ROM, No pedal edema Neurologic/Psychiatric: positive: Other (Sedated and intubated) Conclusion/Plan - Problem List (1) Drug overdose Conclusion/Plan: Patient's toxicology was positive for benzodiazepines. Patient was found with an empty bottle of alprazolam next to him. He had a GCS of 3. Patient is currently sedated and intubated Qualifiers: Encounter type: initial encounter Injury intent: undetermined intent Qualified Code(s): T50.904A - Poisoning by unspecified drugs, medicaments and biological substances, undetermined, initial encounter (2) Alcoholic intoxication Conclusion/Plan: Blood alcohol level was 595.9. Patient is currently sedated on propofol and intubated. IV hydration with D5 normal saline with 20 mEq of potassium at 100 mils per hour Will monitor closely. Qualifiers: Complication of substance-induced condition: uncomplicated Qualified Code(s): F10.920 - Alcohol use, unspecified with intoxication, uncomplicated (3) Hypertension Conclusion/Plan: Patient's systolic blood pressure is currently at the lower end of normal. Hold his home lisinopril. (4) Depression Conclusion/Plan: On escitalopram. Qualifiers: Depression Type: major depressive disorder Major depression recurrence: unspecified whether recurrent Active/Remission status: remission status unspecified Qualified Code(s): F32.9 - Major depressive disorder, single episode, unspecified - Lab Results Fish Bones: 04/19/21 13:54 04/19/21 13:54 Core Measures - Anticipated LOS I expect patient to be DC'd or transferred within 96 hours.: Yes - DVT/VTE - Prophylaxis VTE/DVT Device ordered at admit?: Yes VTE/DVT Prophylaxis med ordered at admit?: Yes
[2021-04-19] MEDS: CHLORHEXIDINE GLUCONATE 15 ML UDC PO SCH (20:43)
[2021-04-19] MEDS: PROPOFOL 500 MG/50 ML 500 MG/50 ML VIAL IV SCH ×2 (20:45→22:59)
[2021-04-19] MEDS: FAMOTIDINE 20 MG/2 ML VIAL IVP SCH (20:48)
[2021-04-19] MEDS: SODIUM CHLORIDE FLUSH 0.9% 10 ML SYRINGE IVP SCH (20:48)
--- NOTE | 2021-04-19 21:36 | XRAY Report ---
PROCEDURE: Chest for Line Placement INDICATIONS: ng tube placement TECHNIQUE: One view of the chest was acquired. COMPARISON: 04/19/2021. FINDINGS: Surgical changes and devices: There has been interval repositioning of the endotracheal tube with the tip approximately 6 cm from the layla. The nasogastric tube extending to the region of the distal e sophageal junction with the tip not well visualized. Lungs and pleura: There is pulmonary vascular prominence compatible with pulmonary edema. No pleural effusions or pneumothorax. Mediastinum: Mediastinal contours appear normal. Heart size is normal. Bones and chest wall: No suspicious bony lesions. Overlying soft tissues appear unremarkable. IMPRESSION: 1. Nasogastric tube extends into the region of the stomach with the tip not well visualized. 2. Pulmonary vascular prominence compatible with pulmonary edema. Reviewed by: Josh Manzo MD on 04/19/2021 9:35 PM PDT Approved by: Josh Manzo MD on 04/19/2021 9:35 PM PDT Station ID: [id number]
[2021-04-20] MEDS: PROPOFOL 500 MG/50 ML 500 MG/50 ML VIAL IV SCH ×3 (01:18→04:38)
[2021-04-20] MEDS ORDERED: LORazepam 100MG/100ML D5W 100 ML IV SCH (03:00)
[2021-04-20] MEDS ORDERED: DEXTROSE 5% 50 ML IV ONE (03:30)
[2021-04-20] MEDS: D5NS W/20 MEQ KCL 1,000 ML IV SCH ×2 (04:02→14:23)
[2021-04-20 04:50] LABS: BASOPHILS % (AUTO) 0.6 %; EOSINOPHILS # (AUTO) 0.1 10^3/uL (0.0-0.7); EOSINOPHILS % (AUTO) 0.8 %; HCT - HEMATOCRIT 41.9 % (42.0-52.0); HGB - HEMOGLOBIN 13.9 g/dL (14.0-18.0); LYMPHOCYTES # (AUTO) 2.7 10^3/uL (1.5-3.5); LYMPHOCYTES % (AUTO) 42.9 %; MEAN CORPUSCULAR HEMOGLOBIN 31.2 pg (27.0-31.0); MEAN CORPUSCULAR HGB CONC 33.2 g/dL (32.0-36.0); MEAN CORPUSCULAR VOLUME 93.9 fL (80.0-94.0); MEAN PLATELET VOLUME 10.4 fL (7.4-11.4); MONOCYTES # (AUTO) 0.6 10^3/uL (0.0-1.0); MONOCYTES % (AUTO) 9.5 %; NEUTROPHILS # (AUTO) 2.9 10^3/uL (1.5-6.6); NEUTROPHILS % (AUTO) 45.9 %; PLT - PLATELET COUNT 93 10^3/uL (130-450); RED BLOOD COUNT 4.46 10^6/uL (4.70-6.10); RED CELL DISTRIBUTION WIDTH 15.9 % (12.0-15.0); WHITE BLOOD COUNT 6.3 x10^3/uL (4.8-10.8)
[2021-04-20 04:54] LABS: INR 1.2 (0.8-1.2); PT - PROTHROMBIN TIME 13.3 secs (9.9-12.6)
[2021-04-20 05:05] LABS: ALBUMIN 3.8 g/dL (3.2-5.5); ALBUMIN/GLOBULIN RATIO 1.2 (1.0-2.2); MAGNESIUM 1.6 mg/dL (1.7-2.8); PHOSPHORUS 4.2 mg/dL (2.5-4.6); POTASSIUM 3.3 mmol/L (3.5-5.0)
[2021-04-20] MEDS ORDERED: MAGNESIUM SULFATE 2 GRAM 2 GM/50 ML BAG IV ONE (08:00)
[2021-04-20] MEDS: POTASSIUM CHLOR 10 MEQ/100 ML 10 MEQ/100 ML BAG IV SCH ×4 (08:16→11:07)
[2021-04-20] MEDS ORDERED: traZODone 50 MG TABLET PO PRN (08:41)
[2021-04-20] MEDS: FAMOTIDINE 20 MG/2 ML VIAL IVP SCH ×2 (08:45→20:14)
[2021-04-20] MEDS: SODIUM CHLORIDE FLUSH 0.9% 10 ML SYRINGE IVP SCH ×3 (08:47→20:14)
[2021-04-20] MEDS: CHLORHEXIDINE GLUCONATE 15 ML UDC PO SCH ×3 (09:08→20:13)
[2021-04-20] MEDS: methocarbamoL 500 MG TABLET PO PRN ×3 (09:20→20:13)
[2021-04-20] MEDS: GABAPENTIN 300 MG CAPSULE PO PRN ×2 (09:20→14:23)
[2021-04-20] MEDS: THIAMINE 100 MG TABLET PO SCH (09:21)
[2021-04-20] MEDS: LORazepam 2 MG/ML VIAL IVP PRN ×8 (09:21→20:35)
[2021-04-20] MEDS: PRENATAL VITAMIN TABLET PO SCH (12:13)
[2021-04-20] MEDS: NICOTINE 14 MG PATCH TOP SCH (12:49)
[2021-04-20] MEDS: SODIUM CHLORIDE FLUSH 0.9% 10 ML SYRINGE IVP PRN ×2 (14:36→20:35)
--- NOTE | 2021-04-20 18:59 | PROVIDER PROGRESS NOTE ---
Assessment/Plan - Problem List (1) Drug overdose Qualifiers: Encounter type: initial encounter Injury intent: undetermined intent Qualified Code(s): T50.904A - Poisoning by unspecified drugs, medicaments and biological substances, undetermined, initial encounter Assessment/Plan: Patient's toxicology was positive for benzodiazepines. Patient was found with an empty bottle of alprazolam next to him. He had respiratory depression and needed to be intubated, has been extubated as of 05 30 this morning Now that he has been extubated, will begin a diet and advance as tolerated, decrease iv fluids. Will begin his usual home p.o. meds (2) Suicidal ideation Will order 1:1 monitoring because of possible suicidal ideation that he voiced to his RN. Remain in the ICU. Social work is working on having him transferred for inpatient psych management, however, with his alcohol abuse history, and he is scoring CIWA at 12-25 and is starting to go into alcohol withdrawal, he will be difficult to transfer until he is through his alcohol withdrawal. (3) Alcoholic abuse Conclusion/Plan: Blood alcohol level was 595.9. Patient was sedated on propofol and intubated. He was extubated at 0630 and is tremulous, confused (changing his mind). Will order a CIWA protocol. Will wean the IV Ativan to off slowly over the day. We will then begin IV Ativan pushes as needed for high scores on a CIWA protocol. Will continue Thiamine and MOV. (4) Alcohol withdrawal Will order a CIWA protocol. Will wean the IV Ativan to off slowly over the day, and begin IV Ativan pushes as needed for high scores on a CIWA protocol. Will also start Librium scheduled. Can stop Adan, now that he is awake. (5) Hypertension Conclusion/Plan: Blood pressure was initially "soft". Now that he is awake and is withdrawing from alcohol, blood pressure is elevated. We will start his home blood pressure medications (6) Depression Conclusion/Plan: On escitalopram at home, we will resume this (7) Tobacco use Patient is having urges to smoke, admits to smoking 1 pack/day. We will order nicotine patch topically daily (8) Respiratory failure Resolved. He had respiratory hypopnea and altered mental status from his presentation with benzodiazepine intoxication. He required intubation in the ER. He has been extubated as of this morning and his ventilation is stable. - Current Meds Current Meds: Current Medications Generic Name Dose Route Start Last Admin Trade Name Freq PRN Reason Stop Dose Admin Chlorhexidine Gluconate 15 ml 04/19/21 21:00 04/20/21 09:10 Chlorhexidine Gluconate 15 Ml Udc PO 15 ml BID VLADIMIR Administration Famotidine 20 mg 04/19/21 21:00 04/20/21 08:45 Famotidine 20 Mg/2 Ml Vial IVP 20 mg BID VLADIMIR Administration Gabapentin 300 mg 04/20/21 08:41 04/20/21 14:23 Gabapentin 300 Mg Capsule PO 300 mg TID PRN Administration PAIN Potassium Chloride/Dextrose/Sod Cl 1,000 mls @ 100 mls/hr 04/19/21 18:00 04/20/21 14:23 D5ns W/20 Meq Kcl IV 100 mls/hr .Q10H VLADIMIR Administration Propofol 500 mg in 50 mls @ 7.83 mls/hr 04/19/21 21:00 04/20/21 06:04 Diprivan IV 0 mcg/kg/min .Q6H24M VLADIMIR 0 mls/hr Titration Protocol 10 MCG/KG/MIN Lorazepam 2 mg 04/20/21 16:00 04/20/21 18:17 Lorazepam 2 Mg/Ml Vial IVP 2 mg Q30M PRN Administration CIWA >8 Protocol Methocarbamol 750 mg 04/20/21 08:47 04/20/21 14:22 Methocarbamol 500 Mg Tablet PO 750 mg TID PRN Administration Muscle spasms Nicotine 1 patch 04/20/21 13:00 04/20/21 12:49 Nicotine 14 Mg Patch TOP 1 patch DAILY VLADIMIR Administration Multivit/Folic Acid/Iron 1 tab 04/20/21 09:00 04/20/21 12:13 Vitamin Tablet PO 1 tab DAILY VLADIMIR Administration Sodium Chloride 10 ml 04/20/21 01:00 04/20/21 16:38 Sodium Chloride Flush 0.9% 10 Ml Syringe IVP 10 ml 0100,0900,1700 VLADIMIR Administration Sodium Chloride 10 ml 04/19/21 17:34 04/20/21 14:36 Sodium Chloride Flush 0.9% 10 Ml Syringe IVP 10 ml PRN PRN Administration NEEDED PER PROVIDER ORDERS Thiamine HCl 100 mg 04/20/21 09:00 04/20/21 09:21 Thiamine 100 Mg Tablet PO 100 mg DAILY VLADIMIR Administration - Lab Result Fish Bone Diagrams: 04/20/21 04:20 04/20/21 04:20 - Additional Planning My Orders: My Active Orders 04/19/21 18:00 D5ns W/20 Meq KCl 1,000 ml IV 100 mls/hr 04/19/21 21:00 Famotidine [Pepcid] 20 mg IVP BID 04/20/21 Social Work Consult [CONS] Routine 04/20/21 01:00 Sodium Chloride Flush 0.9% [Normal Saline Flush 0.9%] 10 ml IVP 0100,0900,1700 04/20/21 08:41 Gabapentin [Neurontin] 300 mg PO TID PRN 04/20/21 08:44 1:1 Observation [RC] ONCE CIWA - AR Score Card [RC] Q4HR 04/20/21 08:47 methocarbamoL [Robaxin] 750 mg PO TID PRN 04/20/21 09:00 Vitamin [Trinatal Rx 1] 1 tab PO DAILY Thiamine [Vitamin B-1] 100 mg PO DAILY 04/20/21 Lunch Dysphagia Puree Diet [DIET] 04/20/21 13:00 Nicotine 14 mg Patch [Nicoderm] 1 patch TOP DAILY 04/20/21 14:26 Miscellaenous Nursing Order [RC] ONCE 04/20/21 16:00 LORazepam INJ [Ativan Inj (Vial)] 2 mg IVP Q30M PRN 04/20/21 21:00 Haloperidol Oral Soln [Haldol Oral Soln] 10 mg PO QPM risperiDONE [RisperDAL] 4 mg PO QPM 04/21/21 05:00 CBC - COMP BLD CT W/AUTO DIFF [HEME] DAILYLAB COMPREHENSIVE METABOLIC PANEL [CHEM] DAILYLAB 04/21/21 09:00 Escitalopram [Lexapro] 20 mg PO DAILY Patient Own Med [Patient Own Medication] 2 each PO DAILY lisinopriL [Zestril] 30 mg PO DAILY 04/22/21 05:00 CBC - COMP BLD CT W/AUTO DIFF [HEME] DAILYLAB COMPREHENSIVE METABOLIC PANEL [CHEM] DAILYLAB Subjective - Subjective Patient Reports: Other (pain in feet and toes where he has bruises, no other pain) Nursing Reports: Other (He told his RN and SW that he is "hearing voices, telling him to kill himself") Objective Vital Signs: Vital Signs - 24 hr 04/19/21 04/19/21 04/19/21 19:00 21:00 21:18 Temperature 36.9 C Heart Rate 91 Heart Rate [ 91 91 Monitoring electrodes] Respiratory 14 14 Rate Blood Pressure 106/68 105/64 [Right Brachial artery] O2 Saturation 98 99 04/19/21 04/19/21 04/19/21 22:00 22:40 23:00 Temperature 37.1 C Heart Rate 94 Heart Rate [ 96 94 Monitoring electrodes] Respiratory 14 14 Rate Blood Pressure 98/63 106/61 [Right Brachial artery] O2 Saturation 98 97 04/20/21 04/20/21 04/20/21 00:00 00:30 01:00 Temperature 36.9 C 36.9 C Heart Rate 96 Heart Rate [ 94 94 Monitoring electrodes] Respiratory 14 14 Rate Blood Pressure 107/69 120/71 [Right Brachial artery] O2 Saturation 97 96 04/20/21 04/20/21 04/20/21 02:40 04:00 05:00 Temperature 36.5 C Heart Rate 104 H Heart Rate [ 104 H 103 H Monitoring electrodes] Respiratory 14 14 Rate Blood Pressure 125/73 120/73 [Right Brachial artery] O2 Saturation 96 98 04/20/21 04/20/21 04/20/21 05:05 06:28 07:00 Temperature Heart Rate 102 H 107 H Heart Rate [ 109 H Monitoring electrodes] Respiratory 13 Rate Blood Pressure 162/96 H [Right Brachial artery] O2 Saturation 94 04/20/21 04/20/21 04/20/21 09:00 11:00 13:00 Temperature 36.6 C Heart Rate Heart Rate [ 104 H 98 102 H Monitoring electrodes] Respiratory 24 21 14 Rate Blood Pressure 155/103 H 144/90 H 159/97 H [Right Brachial artery] O2 Saturation 95 95 98 04/20/21 04/20/21 14:00 17:00 Temperature Heart Rate Heart Rate [ 95 26 L Monitoring electrodes] Respiratory 26 H 27 H Rate Blood Pressure 149/96 H 178/104 H [Right Brachial artery] O2 Saturation 95 95 Oxygen O2 Source Room air I&O (Last 24 Hrs): Intake and Output Totals x24h 04/18/21 04/19/21 04/20/21 23:59 23:59 23:59 Intake Total 9239.109 3012.104 Output Total 1140 1765 Balance 506.071 2356.104 General: Alert HEENT: Other (Appears disheveled) Neck: Supple, No JVD Neuro: Alert, Other (Bradykinetic, fine tremor of his hands with motion, nonfocal overall) Cardiovascular: Regular rate, No murmurs Respiratory: No respiratory distress, Breath sounds nml Abdomen: Normal bowel sounds, Soft Extremities: No edema, Other (Purple bruises seen of several toes just proximal to the nails) - Results Results: Laboratory Results WBC 6.3 x10^3/uL (4.8-10.8) 04/20/21 04:20 RBC 4.46 10^6/uL (4.70-6.10) L 04/20/21 04:20 Hgb 13.9 g/dL (14.0-18.0) L 04/20/21 04:20 Hct 41.9 % (42.0-52.0) L 04/20/21 04:20 MCV 93.9 fL (80.0-94.0) 04/20/21 04:20 MCH 31.2 pg (27.0-31.0) H 04/20/21 04:20 MCHC 33.2 g/dL (32.0-36.0) 04/20/21 04:20 RDW 15.9 % (12.0-15.0) H 04/20/21 04:20 Plt Count 93 10^3/uL (130-450) L 04/20/21 04:20 MPV 10.4 fL (7.4-11.4) 04/20/21 04:20 Neut # (Auto) 2.9 10^3/uL (1.5-6.6) 04/20/21 04:20 Lymph # (Auto) 2.7 10^3/uL (1.5-3.5) 04/20/21 04:20 [place] # (Auto) 0.6 10^3/uL (0.0-1.0) 04/20/21 04:20 Eos # (Auto) 0.1 10^3/uL (0.0-0.7) 04/20/21 04:20 Baso # (Auto) 0.0 10^3/uL (0.0-0.1) 04/20/21 04:20 Absolute Nucleated RBC 0.00 x10^3/uL 04/20/21 04:20 Nucleated RBC % 0.0 /100WBC 04/20/21 04:20 PT 13.3 secs (9.9-12.6) H 04/20/21 04:20 INR 1.2 (0.8-1.2) 04/20/21 04:20 Bld Gas Analysis Time 1408 04/19/21 14:00 Sample Site RIGHT RADIAL 04/19/21 14:00 ABG pH 7.32 (7.35-7.45) L 04/19/21 14:00 ABG pCO2 45 mmHg (34-45) 04/19/21 14:00 ABG pO2 62 mmHg (80-100) L 04/19/21 14:00 ABG HCO3 22.7 mmol/L (22.0-26.0) 04/19/21 14:00 ABG Total CO2 24.1 MMOL/L (21.0-29.0) 04/19/21 14:00 ABG O2 Saturation 84 % (94-98) L* 04/19/21 14:00 ABG Base Excess -3.6 mmol/L (-2.0-3.0) L 04/19/21 14:00 Mark Test POSITIVE 04/19/21 14:00 Respiration Rate 20 b/min 04/19/21 14:00 O2 Delivery Device VENTILATOR 04/19/21 14:00 Vent Mode SIMV 04/19/21 14:00 FiO2 60.00 04/19/21 14:00 Tidal Volume 750 mL 04/19/21 14:00 PEEP 5 cmH2O 04/19/21 14:00 Sodium 143 mmol/L (135-145) 04/20/21 04:20 Potassium 3.3 mmol/L (3.5-5.0) L 04/20/21 04:20 Chloride 105 mmol/L (101-111) 04/20/21 04:20 Carbon Dioxide 23 mmol/L (21-32) 04/20/21 04:20 Anion Gap 15.0 (6-13) H 04/20/21 04:20 BUN 6 mg/dL (6-20) 04/20/21 04:20 Creatinine 1.0 mg/dL (0.6-1.2) 04/20/21 04:20 Estimated GFR (MDRD) 83 (>89) L 04/20/21 04:20 Glucose 99 mg/dL (70-100) 04/20/21 04:20 Calcium 8.0 mg/dL (8.5-10.3) L 04/20/21 04:20 Phosphorus 4.2 mg/dL (2.5-4.6) 04/20/21 04:20 Magnesium 1.6 mg/dL (1.7-2.8) L 04/20/21 04:20 Total Bilirubin 1.0 mg/dL (0.2-1.0) 04/20/21 04:20 AST 146 IU/L (10-42) H 04/20/21 04:20 ALT 71 IU/L (10-60) H 04/20/21 04:20 Alkaline Phosphatase 96 IU/L (42-121) 04/20/21 04:20 Total Protein 7.0 g/dL (6.7-8.2) 04/20/21 04:20 Albumin 3.8 g/dL (3.2-5.5) 04/20/21 04:20 Globulin 3.2 g/dL (2.1-4.2) 04/20/21 04:20 Albumin/Globulin Ratio 1.2 (1.0-2.2) 04/20/21 04:20 Lipase 24 U/L (22-51) 04/19/21 13:54 TSH 1.09 uIU/mL (0.34-5.60) 04/19/21 13:54 Urine Color YELLOW 04/19/21 16:24 Urine Clarity CLEAR (CLEAR) 04/19/21 16:24 Urine pH 6.0 PH (5.0-7.5) 04/19/21 16:24 Ur Specific [place] <=1.005 (1.002-1.030) 04/19/21 16:24 Urine Protein 30 mg/dL (NEGATIVE) H 04/19/21 16:24 Urine Glucose (UA) NEGATIVE mg/dL (NEGATIVE) 04/19/21 16:24 Urine Ketones NEGATIVE mg/dL (NEGATIVE) 04/19/21 16:24 Urine Occult Blood TRACE-INTA (NEGATIVE) 04/19/21 16:24 Urine Nitrite NEGATIVE (NEGATIVE) 04/19/21 16:24 Urine Bilirubin NEGATIVE (NEGATIVE) 04/19/21 16:24 Urine Urobilinogen 0.2 (NORMAL) E.U./dL (NORMAL) 04/19/21 16:24 Ur Leukocyte Esterase NEGATIVE (NEGATIVE) 04/19/21 16:24 Urine RBC 0-5 /HPF (0-5) 04/19/21 16:24 Urine WBC 0-3 /HPF (0-3) 04/19/21 16:24 Ur Squamous Epith Cells RARE Squamous (<= Few) 04/19/21 16:24 Urine Bacteria None Seen /HPF (None Seen) 04/19/21 16:24 Urine Mucus Few Strands 04/19/21 16:24 Ur Microscopic Review INDICATED 04/19/21 16:24 Urine Culture Comments NOT INDICATED 04/19/21 16:24 Nasal Adenovirus (PCR) NOT DETECTED 04/19/21 15:30 Nasal B. parapertussis DNA (PCR) NOT DETECTED 04/19/21 15:30 Nasal Coronavir 229E PCR NOT DETECTED 04/19/21 15:30 Nasal Coronavir HKU1 PCR NOT DETECTED 04/19/21 15:30 Nasal Coronavir NL63 PCR NOT DETECTED 04/19/21 15:30 Nasal Coronavir OC43 PCR NOT DETECTED 04/19/21 15:30 Nasal Enterovir/Rhinovir PCR NOT DETECTED 04/19/21 15:30 Nasal Influenza B PCR NOT DETECTED 04/19/21 15:30 Nasal Influenza A PCR NOT DETECTED 04/19/21 15:30 Nasal Parainfluen 1 PCR NOT DETECTED 04/19/21 15:30 Nasal Parainfluen 2 PCR NOT DETECTED 04/19/21 15:30 Nasal Parainfluen 3 PCR NOT DETECTED 04/19/21 15:30 Nasal Parainfluen 4 PCR NOT DETECTED 04/19/21 15:30 Nasal RSV (PCR) NOT DETECTED 04/19/21 15:30 Nasal Screen MRSA (PCR) NEGATIVE (NEGATIVE) 04/19/21 18:35 Nasal B.pertussis DNA PCR NOT DETECTED 04/19/21 15:30 Nasal C.pneumoniae (PCR) NOT DETECTED 04/19/21 15:30 Isacc Human Metapneumo PCR NOT DETECTED 04/19/21 15:30 Nasal M.pneumoniae (PCR) NOT DETECTED 04/19/21 15:30 Nasal SARS-CoV-2 (PCR) NOT DETECTED 04/19/21 15:30 Salicylates < 6.0 mg/dL 04/19/21 13:54 Urine Opiates Screen NEGATIVE (NEGATIVE) 04/19/21 16:24 Ur Oxycodone Screen NEGATIVE (NEGATIVE) 04/19/21 16:24 Urine Methadone Screen NEGATIVE (NEGATIVE) 04/19/21 16:24 Ur Propoxyphene Screen NEGATIVE (NEGATIVE) 04/19/21 16:24 Acetaminophen < 10 ug/mL (10-30) L 04/19/21 13:54 Ur Barbiturates Screen NEGATIVE (NEGATIVE) 04/19/21 16:24 Ur Tricyclics Screen NEGATIVE (NEGATIVE) 04/19/21 16:24 Ur Phencyclidine Scrn NEGATIVE (NEGATIVE) 04/19/21 16:24 Ur Amphetamine Screen NEGATIVE (NEGATIVE) 04/19/21 16:24 U Methamphetamines Scrn NEGATIVE (NEGATIVE) 04/19/21 16:24 U Benzodiazepines Scrn POSITIVE (NEGATIVE) H 04/19/21 16:24 Urine Cocaine Screen NEGATIVE (NEGATIVE) 04/19/21 16:24 U Cannabinoids Screen NEGATIVE (NEGATIVE) 04/19/21 16:24 Ethyl Alcohol 595.9 mg/dL H* 04/19/21 13:54
[2021-04-20] MEDS: risperiDONE 1 MG TABLET PO SCH (20:13)
[2021-04-20] MEDS: chlordiazePOXIDE 25 MG CAPSULE PO SCH (20:13)
[2021-04-20] MEDS: HALOPERIDOL 10 MG/5 ML UDC PO SCH (20:13)
[2021-04-21] MEDS: chlordiazePOXIDE 25 MG CAPSULE PO SCH ×5 (00:01→23:30)
[2021-04-21 04:51] LABS: BASOPHILS % (AUTO) 0.5 %; EOSINOPHILS # (AUTO) 0.1 10^3/uL (0.0-0.7); EOSINOPHILS % (AUTO) 1.5 %; HCT - HEMATOCRIT 37.7 % (42.0-52.0); HGB - HEMOGLOBIN 12.7 g/dL (14.0-18.0); MEAN CORPUSCULAR HEMOGLOBIN 31.8 pg (27.0-31.0); MEAN CORPUSCULAR HGB CONC 33.7 g/dL (32.0-36.0); MEAN CORPUSCULAR VOLUME 94.5 fL (80.0-94.0); MEAN PLATELET VOLUME 10.9 fL (7.4-11.4); MONOCYTES # (AUTO) 0.3 10^3/uL (0.0-1.0); MONOCYTES % (AUTO) 6.5 %; NEUTROPHILS # (AUTO) 1.7 10^3/uL (1.5-6.6); NEUTROPHILS % (AUTO) 42.5 %; PLT - PLATELET COUNT 60 10^3/uL (130-450); RED BLOOD COUNT 3.99 10^6/uL (4.70-6.10); RED CELL DISTRIBUTION WIDTH 15.3 % (12.0-15.0)
[2021-04-21 05:05] LABS: ALBUMIN 3.7 g/dL (3.2-5.5); ALBUMIN/GLOBULIN RATIO 1.3 (1.0-2.2); ALKALINE PHOSPHATASE 85 IU/L (42-121); ALT ALANINE AMINOTRANSFERASE 50 IU/L (10-60); AST ASPARTATE AMINOTRANSFERASE 81 IU/L (10-42); BILIRUBIN,TOTAL 2.5 mg/dL (0.2-1.0); BUN - BLOOD UREA NITROGEN < 5 mg/dL (6-20); CALCIUM 8.2 mg/dL (8.5-10.3); CARBON DIOXIDE - CO2 25 mmol/L (21-32); CHLORIDE 102 mmol/L (101-111); CREATININE 0.6 mg/dL (0.6-1.2); GFR - MDRD 149 (>89); GLUCOSE 99 mg/dL (70-100); POTASSIUM 3.3 mmol/L (3.5-5.0); SODIUM 139 mmol/L (135-145); TOTAL PROTEIN 6.5 g/dL (6.7-8.2)
[2021-04-21] MEDS: GABAPENTIN 300 MG CAPSULE PO PRN ×2 (06:02→20:42)
[2021-04-21 06:07] LABS: MAGNESIUM 1.9 mg/dL (1.7-2.8); PHOSPHORUS 2.9 mg/dL (2.5-4.6)
[2021-04-21] MEDS: CHLORHEXIDINE GLUCONATE 15 ML UDC PO SCH ×2 (08:45→20:41)
[2021-04-21] MEDS: FAMOTIDINE 20 MG/2 ML VIAL IVP SCH ×2 (08:45→20:42)
[2021-04-21] MEDS: THIAMINE 100 MG TABLET PO SCH (08:45)
[2021-04-21] MEDS: PRENATAL VITAMIN TABLET PO SCH (08:45)
[2021-04-21] MEDS: lisinopriL 20 MG TABLET PO SCH (08:45)
[2021-04-21] MEDS: ESCITALOPRAM 10 MG TABLET PO SCH (08:45)
[2021-04-21] MEDS: SODIUM CHLORIDE FLUSH 0.9% 10 ML SYRINGE IVP SCH ×3 (08:46→20:42)
[2021-04-21] MEDS: methocarbamoL 500 MG TABLET PO PRN (08:46)
[2021-04-21] MEDS: LORazepam 2 MG/ML VIAL IVP PRN ×8 (08:47→23:30)
[2021-04-21] MEDS ORDERED: POTASSIUM CHLORIDE 20 MEQ TABLET PO ONE (09:00)
[2021-04-21] MEDS: NICOTINE 14 MG PATCH TOP SCH (09:25)
[2021-04-21] MEDS: PATIENT OWN MED PO SCH (09:57)
--- NOTE | 2021-04-21 11:43 | PROVIDER PROGRESS NOTE ---
Assessment/Plan - Problem List (1) Drug overdose Qualifiers: Encounter type: subsequent encounter Injury intent: undetermined intent Qualified Code(s): T50.904D - Poisoning by unspecified drugs, medicaments and biological substances, undetermined, subsequent encounter Assessment/Plan: Patient's toxicology was positive for benzodiazepines. Patient was found with an empty bottle of alprazolam next to him. Will taper down the sedatives Can transfer out of ICU (2) Suicidal ideation Still on 1:1 monitoring because of possible suicidal ideation that he voiced to his RN. Social work is working on having him transferred for inpatient psych management, however, with his alcohol abuse history, he needs to be off iv benzos for 2 days. (3) Alcoholic abuse Conclusion/Plan: Blood alcohol level was 595.9. Patient was sedated on propofol and intubated. He was extubated and was tremulous, confused (changing his mind). He has been started on scheduled Librium and was on a CIWA protocol w/ iv Ativan prn. Will spread out the Librium, tapering it to off. Will cancel the CIWA protocol. Will change to oral Ativan prn agitation/anxiety Will continue Thiamine and MOV. (4) Hypertension Conclusion/Plan: We resumed his home blood pressure medications (5) Depression Conclusion/Plan: We resumed his escitalopram and Haldol at hs (6) Tobacco use Patient was having urges to smoke, admits to smoking 1 pack/day. We ordered nicotine patch topically daily (8) Respiratory failure Resolved. (9) Alcohol withdrawal Resolved, no tremulousness and stable VS. He seems to answer his CIWA questions to score higher, and suspect drug-seeking behavior. - Current Meds Current Meds: Current Medications Generic Name Dose Route Start Last Admin Trade Name Freq PRN Reason Stop Dose Admin Chlordiazepoxide HCl 25 mg 04/20/21 20:00 04/21/21 06:02 Chlordiazepoxide 25 Mg Capsule PO 25 mg Q6HR VLADIMIR Administration Chlorhexidine Gluconate 15 ml 04/19/21 21:00 04/21/21 08:45 Chlorhexidine Gluconate 15 Ml Udc PO 15 ml BID VLADIMIR Administration Escitalopram Oxalate 20 mg 04/21/21 09:00 04/21/21 08:45 Escitalopram 10 Mg Tablet PO 20 mg DAILY VLADIMIR Administration Famotidine 20 mg 04/19/21 21:00 04/21/21 08:45 Famotidine 20 Mg/2 Ml Vial IVP 20 mg BID VLADIMIR Administration Gabapentin 300 mg 04/20/21 08:41 04/21/21 06:02 Gabapentin 300 Mg Capsule PO 300 mg TID PRN Administration PAIN Haloperidol 10 mg 04/20/21 21:00 04/20/21 20:13 Haloperidol 10 Mg/5 Ml Udc PO 10 mg QPM VLADIMIR Administration Lisinopril 30 mg 04/21/21 09:00 04/21/21 08:45 Lisinopril 20 Mg Tablet PO 30 mg DAILY VLADIMIR Administration Lorazepam 2 mg 04/20/21 16:00 04/21/21 10:40 Lorazepam 2 Mg/Ml Vial IVP 2 mg Q30M PRN Administration CIWA >8 Protocol Methocarbamol 750 mg 04/20/21 08:47 04/21/21 08:46 Methocarbamol 500 Mg Tablet PO 750 mg TID PRN Administration Muscle spasms Nicotine 1 patch 04/20/21 13:00 04/21/21 09:25 Nicotine 14 Mg Patch TOP 1 patch DAILY VLADIMIR Administration Patient Own Medication 2 each 04/21/21 09:00 04/21/21 09:57 Patient Own Med PO Not Given DAILY VLADIMIR Multivit/Folic Acid/Iron 1 tab 04/20/21 09:00 04/21/21 08:45 Vitamin Tablet PO 1 tab DAILY VLADIMIR Administration Risperidone 4 mg 04/20/21 21:00 04/20/21 20:13 Risperidone 1 Mg Tablet PO 4 mg QPM VLADIMIR Administration Sodium Chloride 10 ml 04/20/21 01:00 04/21/21 08:46 Sodium Chloride Flush 0.9% 10 Ml Syringe IVP 10 ml 0100,0900,1700 VLADIMIR Administration Sodium Chloride 10 ml 04/19/21 17:34 04/20/21 20:35 Sodium Chloride Flush 0.9% 10 Ml Syringe IVP 10 ml PRN PRN Administration NEEDED PER PROVIDER ORDERS Thiamine HCl 100 mg 04/20/21 09:00 04/21/21 08:45 Thiamine 100 Mg Tablet PO 100 mg DAILY VLADIMIR Administration - Lab Result Fish Bone Diagrams: 04/22/21 05:03 04/22/21 05:03 - Additional Planning My Orders: My Active Orders 04/20/21 13:00 Nicotine 14 mg Patch [Nicoderm] 1 patch TOP DAILY 05/21/21 16:00 LORazepam INJ [Ativan Inj (Vial)] 2 mg IVP Q30M PRN 04/20/21 20:00 chlordiazePOXIDE [Librium] 25 mg PO Q6HR 04/20/21 21:00 Haloperidol Oral Soln [Haldol Oral Soln] 10 mg PO QPM risperiDONE [RisperDAL] 4 mg PO QPM 04/21/21 09:00 Escitalopram [Lexapro] 20 mg PO DAILY Patient Own Med [Patient Own Medication] 2 each PO DAILY lisinopriL [Zestril] 30 mg PO DAILY 04/21/21 Lunch DIET [Soft Mechanical Diet] [DIET] 04/22/21 05:00 AMMONIA [CHEM] DAILYLAB CBC - COMP BLD CT W/AUTO DIFF [HEME] DAILYLAB COMPREHENSIVE METABOLIC PANEL [CHEM] DAILYLAB MAGNESIUM [CHEM] DAILYLAB PHOSPHORUS [CHEM] DAILYLAB Subjective - Subjective Patient Reports: Headache, Nausea Objective Vital Signs: Vital Signs - 24 hr 04/20/21 04/20/21 04/20/21 13:00 14:00 17:00 Temperature 36.6 C Heart Rate Heart Rate [ 102 H 95 26 L Monitoring electrodes] Respiratory 14 26 H 27 H Rate Blood Pressure [Left Brachial artery] Blood Pressure 159/97 H 149/96 H 178/104 H [Right Brachial artery] O2 Saturation 98 95 95 04/20/21 04/20/21 04/20/21 19:00 19:20 20:02 Temperature 37.1 C 37.1 C Heart Rate 90 Heart Rate [ 104 H 90 Monitoring electrodes] Respiratory 25 H 18 19 Rate Blood Pressure [Left Brachial artery] Blood Pressure 163/90 H [Right Brachial artery] O2 Saturation 97 97 97 04/20/21 04/20/21 04/21/21 21:00 22:00 00:00 Temperature 37.1 C 37.1 C Heart Rate Heart Rate [ 91 103 H 94 Monitoring electrodes] Respiratory 27 H 29 H 29 H Rate Blood Pressure [Left Brachial artery] Blood Pressure 144/92 H 131/71 H 132/83 H [Right Brachial artery] O2 Saturation 98 96 04/21/21 04/21/21 04/21/21 02:00 04:00 06:00 Temperature 37.1 C Heart Rate Heart Rate [ 97 90 83 Monitoring electrodes] Respiratory 17 26 H 24 Rate Blood Pressure [Left Brachial artery] Blood Pressure 137/84 H 123/79 129/86 H [Right Brachial artery] O2 Saturation 95 96 04/21/21 04/21/21 08:00 10:00 Temperature 36.6 C Heart Rate Heart Rate [ 86 92 Monitoring electrodes] Respiratory 21 22 Rate Blood Pressure 144/105 H 136/93 H [Left Brachial artery] Blood Pressure [Right Brachial artery] O2 Saturation 95 96 Oxygen O2 Source Room air I&O (Last 24 Hrs): Intake and Output Totals x24h 04/19/21 04/20/21 04/21/21 23:59 23:59 23:59 Intake Total 1534.974 97097.764 2030 Output Total 1140 2735 650 Balance 518.197 4027.764 1380 General: Alert, Oriented x3 HEENT: Mucous membr. moist/pink Neck: Supple, No JVD Neuro: Alert, Non Focal, Other (No tremor, speech is slow but not slurred) Cardiovascular: Regular rate, No murmurs Respiratory: No respiratory distress Abdomen: Normal bowel sounds, Soft Extremities: No edema - Results Results: Laboratory Results WBC 4.0 x10^3/uL (4.8-10.8) L 04/21/21 04:36 RBC 3.99 10^6/uL (4.70-6.10) L 04/21/21 04:36 Hgb 12.7 g/dL (14.0-18.0) L 04/21/21 04:36 Hct 37.7 % (42.0-52.0) L 04/21/21 04:36 MCV 94.5 fL (80.0-94.0) H 04/21/21 04:36 MCH 31.8 pg (27.0-31.0) H 04/21/21 04:36 MCHC 33.7 g/dL (32.0-36.0) 04/21/21 04:36 RDW 15.3 % (12.0-15.0) H 04/21/21 04:36 Plt Count 60 10^3/uL (130-450) L 04/21/21 04:36 MPV 10.9 fL (7.4-11.4) 04/21/21 04:36 Neut # (Auto) 1.7 10^3/uL (1.5-6.6) 04/21/21 04:36 Lymph # (Auto) 2.0 10^3/uL (1.5-3.5) 04/21/21 04:36 [place] # (Auto) 0.3 10^3/uL (0.0-1.0) 04/21/21 04:36 Eos # (Auto) 0.1 10^3/uL (0.0-0.7) 04/21/21 04:36 Baso # (Auto) 0.0 10^3/uL (0.0-0.1) 04/21/21 04:36 Absolute Nucleated RBC 0.00 x10^3/uL 04/21/21 04:36 Nucleated RBC % 0.0 /100WBC 04/21/21 04:36 PT 13.3 secs (9.9-12.6) H 04/20/21 04:20 INR 1.2 (0.8-1.2) 04/20/21 04:20 Bld Gas Analysis Time 1408 04/19/21 14:00 Sample Site RIGHT RADIAL 04/19/21 14:00 ABG pH 7.32 (7.35-7.45) L 04/19/21 14:00 ABG pCO2 45 mmHg (34-45) 04/19/21 14:00 ABG pO2 62 mmHg (80-100) L 04/19/21 14:00 ABG HCO3 22.7 mmol/L (22.0-26.0) 04/19/21 14:00 ABG Total CO2 24.1 MMOL/L (21.0-29.0) 04/19/21 14:00 ABG O2 Saturation 84 % (94-98) L* 04/19/21 14:00 ABG Base Excess -3.6 mmol/L (-2.0-3.0) L 04/19/21 14:00 Mark Test POSITIVE 04/19/21 14:00 Respiration Rate 20 b/min 04/19/21 14:00 O2 Delivery Device VENTILATOR 04/19/21 14:00 Vent Mode SIMV 04/19/21 14:00 FiO2 60.00 04/19/21 14:00 Tidal Volume 750 mL 04/19/21 14:00 PEEP 5 cmH2O 04/19/21 14:00 Sodium 139 mmol/L (135-145) 04/21/21 04:36 Potassium 3.3 mmol/L (3.5-5.0) L 04/21/21 04:36 Chloride 102 mmol/L (101-111) 04/21/21 04:36 Carbon Dioxide 25 mmol/L (21-32) 04/21/21 04:36 Anion Gap 12.0 (6-13) 04/21/21 04:36 BUN < 5 mg/dL (6-20) L 04/21/21 04:36 Creatinine 0.6 mg/dL (0.6-1.2) 04/21/21 04:36 Estimated GFR (MDRD) 149 (>89) 04/21/21 04:36 Glucose 99 mg/dL (70-100) 04/21/21 04:36 Calcium 8.2 mg/dL (8.5-10.3) L 04/21/21 04:36 Phosphorus 2.9 mg/dL (2.5-4.6) 04/21/21 04:36 Magnesium 1.9 mg/dL (1.7-2.8) 04/21/21 04:36 Total Bilirubin 2.5 mg/dL (0.2-1.0) H 04/21/21 04:36 AST 81 IU/L (10-42) H 04/21/21 04:36 ALT 50 IU/L (10-60) 04/21/21 04:36 Alkaline Phosphatase 85 IU/L (42-121) 04/21/21 04:36 Ammonia 35.1 umol/L (7-35) H 04/21/21 08:07 Total Protein 6.5 g/dL (6.7-8.2) L 04/21/21 04:36 Albumin 3.7 g/dL (3.2-5.5) 04/21/21 04:36 Globulin 2.8 g/dL (2.1-4.2) 04/21/21 04:36 Albumin/Globulin Ratio 1.3 (1.0-2.2) 04/21/21 04:36 Lipase 24 U/L (22-51) 04/19/21 13:54 TSH 1.09 uIU/mL (0.34-5.60) 04/19/21 13:54 Urine Color YELLOW 04/19/21 16:24 Urine Clarity CLEAR (CLEAR) 04/19/21 16:24 Urine pH 6.0 PH (5.0-7.5) 04/19/21 16:24 Ur Specific Rankin <=1.005 (1.002-1.030) 04/19/21 16:24 Urine Protein 30 mg/dL (NEGATIVE) H 04/19/21 16:24 Urine Glucose (UA) NEGATIVE mg/dL (NEGATIVE) 04/19/21 16:24 Urine Ketones NEGATIVE mg/dL (NEGATIVE) 04/19/21 16:24 Urine Occult Blood TRACE-INTA (NEGATIVE) 04/19/21 16:24 Urine Nitrite NEGATIVE (NEGATIVE) 04/19/21 16:24 Urine Bilirubin NEGATIVE (NEGATIVE) 04/19/21 16:24 Urine Urobilinogen 0.2 (NORMAL) E.U./dL (NORMAL) 04/19/21 16:24 Ur Leukocyte Esterase NEGATIVE (NEGATIVE) 04/19/21 16:24 Urine RBC 0-5 /HPF (0-5) 04/19/21 16:24 Urine WBC 0-3 /HPF (0-3) 04/19/21 16:24 Ur Squamous Epith Cells RARE Squamous (<= Few) 04/19/21 16:24 Urine Bacteria None Seen /HPF (None Seen) 04/19/21 16:24 Urine Mucus Few Strands 04/19/21 16:24 Ur Microscopic Review INDICATED 04/19/21 16:24 Urine Culture Comments NOT INDICATED 04/19/21 16:24 Nasal Adenovirus (PCR) NOT DETECTED 04/19/21 15:30 Nasal B. parapertussis DNA (PCR) NOT DETECTED 04/19/21 15:30 Nasal Coronavir 229E PCR NOT DETECTED 04/19/21 15:30 Nasal Coronavir HKU1 PCR NOT DETECTED 04/19/21 15:30 Nasal Coronavir NL63 PCR NOT DETECTED 04/19/21 15:30 Nasal Coronavir OC43 PCR NOT DETECTED 04/19/21 15:30 Nasal Enterovir/Rhinovir PCR NOT DETECTED 04/19/21 15:30 Nasal Influenza B PCR NOT DETECTED 04/19/21 15:30 Nasal Influenza A PCR NOT DETECTED 04/19/21 15:30 Nasal Parainfluen 1 PCR NOT DETECTED 04/19/21 15:30 Nasal Parainfluen 2 PCR NOT DETECTED 04/19/21 15:30 Nasal Parainfluen 3 PCR NOT DETECTED 04/19/21 15:30 Nasal Parainfluen 4 PCR NOT DETECTED 04/19/21 15:30 Nasal RSV (PCR) NOT DETECTED 04/19/21 15:30 Nasal Screen MRSA (PCR) NEGATIVE (NEGATIVE) 04/19/21 18:35 Nasal B.pertussis DNA PCR NOT DETECTED 04/19/21 15:30 Nasal C.pneumoniae (PCR) NOT DETECTED 04/19/21 15:30 Isacc Human Metapneumo PCR NOT DETECTED 04/19/21 15:30 Nasal M.pneumoniae (PCR) NOT DETECTED 04/19/21 15:30 Nasal SARS-CoV-2 (PCR) NOT DETECTED 04/19/21 15:30 Salicylates < 6.0 mg/dL 04/19/21 13:54 Urine Opiates Screen NEGATIVE (NEGATIVE) 04/19/21 16:24 Ur Oxycodone Screen NEGATIVE (NEGATIVE) 04/19/21 16:24 Urine Methadone Screen NEGATIVE (NEGATIVE) 04/19/21 16:24 Ur Propoxyphene Screen NEGATIVE (NEGATIVE) 04/19/21 16:24 Acetaminophen < 10 ug/mL (10-30) L 04/19/21 13:54 Ur Barbiturates Screen NEGATIVE (NEGATIVE) 04/19/21 16:24 Ur Tricyclics Screen NEGATIVE (NEGATIVE) 04/19/21 16:24 Ur Phencyclidine Scrn NEGATIVE (NEGATIVE) 04/19/21 16:24 Ur Amphetamine Screen NEGATIVE (NEGATIVE) 04/19/21 16:24 U Methamphetamines Scrn NEGATIVE (NEGATIVE) 04/19/21 16:24 U Benzodiazepines Scrn POSITIVE (NEGATIVE) H 04/19/21 16:24 Urine Cocaine Screen NEGATIVE (NEGATIVE) 04/19/21 16:24 U Cannabinoids Screen NEGATIVE (NEGATIVE) 04/19/21 16:24 Ethyl Alcohol 595.9 mg/dL H* 04/19/21 13:54
[2021-04-21] MEDS: ONDANSETRON 4 MG/2 ML VIAL IVP PRN (13:40)
[2021-04-21] MEDS: IBUPROFEN 600 MG TABLET PO PRN (13:40)
[2021-04-21] MEDS: SODIUM CHLORIDE FLUSH 0.9% 10 ML SYRINGE IVP PRN ×4 (13:41→23:30)
[2021-04-21] MEDS: HALOPERIDOL 10 MG/5 ML UDC PO SCH (20:41)
[2021-04-21] MEDS: risperiDONE 1 MG TABLET PO SCH (20:42)
[2021-04-22 05:09] LABS: BASOPHILS % (AUTO) 1.1 %; EOSINOPHILS % (AUTO) 2.6 %; HCT - HEMATOCRIT 36.8 % (42.0-52.0); HGB - HEMOGLOBIN 12.5 g/dL (14.0-18.0); LYMPHOCYTES % (AUTO) 41.2 %; MEAN CORPUSCULAR HEMOGLOBIN 31.8 pg (27.0-31.0); MEAN CORPUSCULAR VOLUME 93.6 fL (80.0-94.0); MEAN PLATELET VOLUME 10.1 fL (7.4-11.4); MONOCYTES % (AUTO) 6.6 %; NEUTROPHILS % (AUTO) 48.1 %; PLT - PLATELET COUNT 59 10^3/uL (130-450); RED BLOOD COUNT 3.93 10^6/uL (4.70-6.10); WHITE BLOOD COUNT 2.7 x10^3/uL (4.8-10.8)
[2021-04-22 05:25] LABS: ALBUMIN 3.5 g/dL (3.2-5.5); ALBUMIN/GLOBULIN RATIO 1.2 (1.0-2.2); ALKALINE PHOSPHATASE 78 IU/L (42-121); ALT ALANINE AMINOTRANSFERASE 42 IU/L (10-60); AST ASPARTATE AMINOTRANSFERASE 80 IU/L (10-42); BILIRUBIN,TOTAL 1.8 mg/dL (0.2-1.0); BUN - BLOOD UREA NITROGEN < 5 mg/dL (6-20); CALCIUM 8.8 mg/dL (8.5-10.3); CARBON DIOXIDE - CO2 25 mmol/L (21-32); CHLORIDE 107 mmol/L (101-111); CREATININE 0.6 mg/dL (0.6-1.2); GFR - MDRD 149 (>89); GLUCOSE 110 mg/dL (70-100); POTASSIUM 3.5 mmol/L (3.5-5.0); SODIUM 141 mmol/L (135-145); TOTAL PROTEIN 6.5 g/dL (6.7-8.2)
[2021-04-22] MEDS: chlordiazePOXIDE 25 MG CAPSULE PO SCH ×3 (05:35→21:33)
[2021-04-22] MEDS: GABAPENTIN 300 MG CAPSULE PO PRN ×2 (05:35→16:03)
[2021-04-22 05:36] LABS: ABNORMAL LYMPHS % (MANUAL) 1 %; BAND NEUTROPHILS % (MANUAL) 1 %; EOSINOPHILS # (MANUAL) 0.1 10^3/uL (0-0.7); LYMPHOCYTES % (MANUAL) 36 %; MONOCYTES # (MANUAL) 0.2 10^3/uL (0.0-1.0); NEUTROPHILS # (MANUAL) 1.5 10^3/uL (1.5-6.6)
[2021-04-22 05:37] LABS: DIFFERENTIAL COMMENT MANUAL DIFFERENTIAL; PLATELET ESTIMATE, MANUAL DECREASED (<130,000) (NORMAL); PLATELET MORPHOLOGY NORMAL APPEARANCE (NORMAL); RBC MORPHOLOGY (MULTIPLE) NORMAL APPEARANCE (NORMAL); WBC MORPHOLOGY (MULTIPLE) NORMAL APPEARANCE (NORMAL)
[2021-04-22 06:58] LABS: PHOSPHORUS 3.3 mg/dL (2.5-4.6)
[2021-04-22] MEDS: ONDANSETRON 4 MG/2 ML VIAL IVP PRN (08:48)
[2021-04-22] MEDS: CHLORHEXIDINE GLUCONATE 15 ML UDC PO SCH ×2 (08:48→20:53)
[2021-04-22] MEDS: NICOTINE 14 MG PATCH TOP SCH (08:48)
[2021-04-22] MEDS: FAMOTIDINE 20 MG TABLET PO SCH ×2 (08:48→20:53)
[2021-04-22] MEDS: PRENATAL VITAMIN TABLET PO SCH (08:49)
[2021-04-22] MEDS: PATIENT OWN MED PO SCH (08:49)
[2021-04-22] MEDS: THIAMINE 100 MG TABLET PO SCH (08:49)
[2021-04-22] MEDS: SODIUM CHLORIDE FLUSH 0.9% 10 ML SYRINGE IVP SCH ×2 (08:49→16:04)
[2021-04-22] MEDS: ESCITALOPRAM 10 MG TABLET PO SCH (08:49)
[2021-04-22] MEDS: IBUPROFEN 600 MG TABLET PO PRN (08:49)
[2021-04-22] MEDS: lisinopriL 20 MG TABLET PO SCH (08:49)
[2021-04-22] MEDS: LORazepam 2 MG/ML VIAL IVP PRN (08:52)
[2021-04-22] MEDS: ONDANSETRON ODT 4 MG TABLET TL PRN ×2 (09:55→16:03)
[2021-04-22] MEDS: LORazepam 1 MG TABLET PO PRN ×2 (11:23→17:14)
[2021-04-22] MEDS ORDERED: PHENOL THROAT SPRAY 177 ML MM PRN (11:33)
--- NOTE | 2021-04-22 16:02 | PROVIDER PROGRESS NOTE ---
Assessment/Plan - Problem List (1) Drug overdose Qualifiers: Encounter type: subsequent encounter Injury intent: undetermined intent Qualified Code(s): T50.904D - Poisoning by unspecified drugs, medicaments and biological substances, undetermined, subsequent encounter Assessment/Plan: Patient's toxicology was positive for benzodiazepines. Patient was found with an empty bottle of alprazolam next to him. He had respiratory depression and needed to be intubated, has been extubated Began a diet and advance as tolerated, decrease iv fluids. Will begin his usual home p.o. meds (2) Suicidal ideation He is on 1:1 monitoring because of possible suicidal ideation that he voiced to his RN. Remain in the ICU. Social work is working on having him transferred for inpatient psych management, however, with his alcohol abuse history, and he is scoring CIWA at 12-25 and is starting to go into alcohol withdrawal, he will be difficult to transfer until he is through his alcohol withdrawal. (3) Alcoholic abuse Conclusion/Plan: Blood alcohol level was 595.9. Patient was sedated on propofol and intubated. He was extubated at 0630 and is tremulous, confused (changing his mind). He is on CIWA protocol. Will wean the IV Ativan to off slowly over the day. We will then begin IV Ativan pushes as needed for high scores on a CIWA protocol. Will continue Thiamine and MOV. (4) Alcohol withdrawal Will order a CIWA protocol. Will wean the IV Ativan to off slowly over the day, and begin IV Ativan pushes as needed for high scores on a CIWA protocol. Continue Librium scheduled. (5) Hypertension Conclusion/Plan: Blood pressure was initially "soft". Now that he is awake and is withdrawing from alcohol, blood pressure is elevated. We restarted his home blood pressure medications (6) Depression Conclusion/Plan: Resumed escitalopram home dose (7) Tobacco use Patient smokes 1 pack/day. He is on nicotine patch topically daily (8) Respiratory failure Resolved. - Current Meds Current Meds: Current Medications Generic Name Dose Route Start Last Admin Trade Name Freq PRN Reason Stop Dose Admin Chlordiazepoxide HCl 25 mg 04/22/21 14:00 04/22/21 14:07 Chlordiazepoxide 25 Mg Capsule PO 25 mg Q8HR VLADIMIR Administration Chlorhexidine Gluconate 15 ml 04/19/21 21:00 04/22/21 08:48 Chlorhexidine Gluconate 15 Ml Udc PO 15 ml BID VLADIMIR Administration Escitalopram Oxalate 20 mg 04/21/21 09:00 04/22/21 08:49 Escitalopram 10 Mg Tablet PO 20 mg DAILY VLADIMIR Administration Famotidine 20 mg 04/22/21 09:00 04/22/21 08:48 Famotidine 20 Mg Tablet PO 20 mg BID VLADIMIR Administration Gabapentin 300 mg 04/20/21 08:41 04/22/21 05:35 Gabapentin 300 Mg Capsule PO 300 mg TID PRN Administration PAIN Haloperidol 10 mg 04/20/21 21:00 04/21/21 20:41 Haloperidol 10 Mg/5 Ml Udc PO 10 mg QPM VLADIMIR Administration Ibuprofen 600 mg 04/21/21 11:44 04/22/21 08:49 Ibuprofen 600 Mg Tablet PO 600 mg Q6HR PRN Administration PAIN Lisinopril 30 mg 04/21/21 09:00 04/22/21 08:49 Lisinopril 20 Mg Tablet PO 30 mg DAILY VLADIMIR Administration Lorazepam 1 mg 04/22/21 11:08 04/22/21 11:23 Lorazepam 1 Mg Tablet PO 1 mg Q6H PRN Administration Anxiety Methocarbamol 750 mg 04/20/21 08:47 04/21/21 08:46 Methocarbamol 500 Mg Tablet PO 750 mg TID PRN Administration Muscle spasms Nicotine 1 patch 04/20/21 13:00 04/22/21 08:48 Nicotine 14 Mg Patch TOP 1 patch DAILY VLADIMIR Administration Ondansetron HCl 4 mg 04/22/21 09:33 04/22/21 09:55 Ondansetron Odt 4 Mg Tablet TL 4 mg Q6HR PRN Administration Nausea / Vomiting Patient Own Medication 2 each 04/21/21 09:00 04/22/21 08:49 Patient Own Med PO Not Given DAILY VLADIMIR Multivit/Folic Acid/Iron 1 tab 04/20/21 09:00 04/22/21 08:49 Vitamin Tablet PO 1 tab DAILY VLADIMIR Administration Risperidone 4 mg 04/20/21 21:00 04/21/21 20:42 Risperidone 1 Mg Tablet PO 4 mg QPM VLADIMIR Administration Sodium Chloride 10 ml 04/20/21 01:00 04/22/21 08:49 Sodium Chloride Flush 0.9% 10 Ml Syringe IVP 10 ml 0100,0900,1700 VLADIMIR Administration Sodium Chloride 10 ml 04/19/21 17:34 04/21/21 23:30 Sodium Chloride Flush 0.9% 10 Ml Syringe IVP 10 ml PRN PRN Administration NEEDED PER PROVIDER ORDERS Thiamine HCl 100 mg 04/20/21 09:00 04/22/21 08:49 Thiamine 100 Mg Tablet PO 100 mg DAILY VLADIMIR Administration - Lab Result Fish Bone Diagrams: 04/22/21 05:03 04/22/21 05:03 - Additional Planning My Orders: My Active Orders 04/21/21 15:23 Miscellaenous Nursing Order [RC] ONCE 04/22/21 09:00 Famotidine [Pepcid] 20 mg PO BID 04/22/21 09:33 Ondansetron Odt [Zofran Odt] 4 mg TL Q6HR PRN 04/22/21 11:08 LORazepam [Ativan] 1 mg PO Q6H PRN 04/22/21 11:33 phenoL [Chloraseptic] 2 sprays MM Q2HR PRN 04/22/21 14:00 chlordiazePOXIDE [Librium] 25 mg PO Q8HR Objective Vital Signs: Vital Signs - 24 hr 04/21/21 04/21/21 04/21/21 20:00 21:04 22:06 Temperature 36.6 C 36.6 C Heart Rate [ 87 73 105 H Monitoring electrodes] Respiratory 27 H 22 18 Rate Blood Pressure 149/107 H 146/98 H 149/91 H [Left Brachial artery] O2 Saturation 97 97 04/21/21 04/22/21 04/22/21 23:38 04:00 06:00 Temperature 36.6 C Heart Rate [ 84 85 74 Monitoring electrodes] Respiratory 23 19 20 Rate Blood Pressure 115/75 143/72 H 147/99 H [Left Brachial artery] O2 Saturation 95 96 95 04/22/21 04/22/21 04/22/21 08:00 08:25 12:10 Temperature 36.6 C Heart Rate [ 76 93 Monitoring electrodes] Respiratory 17 16 Rate Blood Pressure 136/72 H 162/108 H [Left Brachial artery] O2 Saturation 98 97 04/22/21 12:48 Temperature 36.8 C Heart Rate [ Monitoring electrodes] Respiratory Rate Blood Pressure [Left Brachial artery] O2 Saturation Oxygen O2 Source Room air I&O (Last 24 Hrs): Intake and Output Totals x24h 04/20/21 04/21/21 04/22/21 23:59 23:59 23:59 Intake Total 65747.764 4160 2030 Output Total 2735 1250 1500 Balance 7539.764 2910 530 General: Alert, Other (Bradykinetic when awake, slept most of the day.) HEENT: Mucous membr. moist/pink Neck: Supple, No JVD Neuro: Non Focal (Bradykinetic, lethargic) Cardiovascular: Regular rate Respiratory: No respiratory distress, Breath sounds nml Abdomen: Soft Extremities: No edema - Results Results: Laboratory Results WBC 2.7 x10^3/uL (4.8-10.8) L 04/22/21 05:03 RBC 3.93 10^6/uL (4.70-6.10) L 04/22/21 05:03 Hgb 12.5 g/dL (14.0-18.0) L 04/22/21 05:03 Hct 36.8 % (42.0-52.0) L 04/22/21 05:03 MCV 93.6 fL (80.0-94.0) 04/22/21 05:03 MCH 31.8 pg (27.0-31.0) H 04/22/21 05:03 MCHC 34.0 g/dL (32.0-36.0) 04/22/21 05:03 RDW 15.0 % (12.0-15.0) 04/22/21 05:03 Plt Count 59 10^3/uL (130-450) L 04/22/21 05:03 MPV 10.1 fL (7.4-11.4) 04/22/21 05:03 Neut # (Auto) Not Reportable 04/22/21 05:03 Lymph # (Auto) Not Reportable 04/22/21 05:03 [place] # (Auto) Not Reportable 04/22/21 05:03 Eos # (Auto) Not Reportable 04/22/21 05:03 Baso # (Auto) Not Reportable 04/22/21 05:03 Absolute Nucleated RBC Not Reportable 04/22/21 05:03 Total Counted 100 04/22/21 05:03 Band Neuts % (Manual) 1 % (0-10) 04/22/21 05:03 Abnorm Lymph % (Manual) 1 % 04/22/21 05:03 Nucleated RBC % Not Reportable 04/22/21 05:03 Neutrophils # (Manual) 1.5 10^3/uL (1.5-6.6) 04/22/21 05:03 Lymphocytes # (Manual) 1.0 10^3/uL (1.5-3.5) L 04/22/21 05:03 Monocytes # (Manual) 0.2 10^3/uL (0.0-1.0) 04/22/21 05:03 Eosinophils # (Manual) 0.1 10^3/uL (0-0.7) 04/22/21 05:03 Basophils # (Manual) 0.0 10^3/uL (0-0.1) 04/22/21 05:03 Differential Comment MANUAL DIFFERENTIAL 04/22/21 05:03 WBC Morphology NORMAL APPEARANCE (NORMAL) 04/22/21 05:03 Platelet Estimate DECREASED (<130,000) (NORMAL) 04/22/21 05:03 Platelet Morphology NORMAL APPEARANCE (NORMAL) 04/22/21 05:03 RBC Morph Micro Appear NORMAL APPEARANCE (NORMAL) 04/22/21 05:03 PT 13.3 secs (9.9-12.6) H 04/20/21 04:20 INR 1.2 (0.8-1.2) 04/20/21 04:20 Bld Gas Analysis Time 1408 04/19/21 14:00 Sample Site RIGHT RADIAL 04/19/21 14:00 ABG pH 7.32 (7.35-7.45) L 04/19/21 14:00 ABG pCO2 45 mmHg (34-45) 04/19/21 14:00 ABG pO2 62 mmHg (80-100) L 04/19/21 14:00 ABG HCO3 22.7 mmol/L (22.0-26.0) 04/19/21 14:00 ABG Total CO2 24.1 MMOL/L (21.0-29.0) 04/19/21 14:00 ABG O2 Saturation 84 % (94-98) L* 04/19/21 14:00 ABG Base Excess -3.6 mmol/L (-2.0-3.0) L 04/19/21 14:00 Mark Test POSITIVE 04/19/21 14:00 Respiration Rate 20 b/min 04/19/21 14:00 O2 Delivery Device VENTILATOR 04/19/21 14:00 Vent Mode SIMV 04/19/21 14:00 FiO2 60.00 04/19/21 14:00 Tidal Volume 750 mL 04/19/21 14:00 PEEP 5 cmH2O 04/19/21 14:00 Sodium 141 mmol/L (135-145) 04/22/21 05:03 Potassium 3.5 mmol/L (3.5-5.0) 04/22/21 05:03 Chloride 107 mmol/L (101-111) 04/22/21 05:03 Carbon Dioxide 25 mmol/L (21-32) 04/22/21 05:03 Anion Gap 9.0 (6-13) 04/22/21 05:03 BUN < 5 mg/dL (6-20) L 04/22/21 05:03 Creatinine 0.6 mg/dL (0.6-1.2) 04/22/21 05:03 Estimated GFR (MDRD) 149 (>89) 04/22/21 05:03 Glucose 110 mg/dL (70-100) H 04/22/21 05:03 Calcium 8.8 mg/dL (8.5-10.3) 04/22/21 05:03 Phosphorus 3.3 mg/dL (2.5-4.6) 04/22/21 05:03 Magnesium 2.0 mg/dL (1.7-2.8) 04/22/21 05:03 Total Bilirubin 1.8 mg/dL (0.2-1.0) H 04/22/21 05:03 AST 80 IU/L (10-42) H 04/22/21 05:03 ALT 42 IU/L (10-60) 04/22/21 05:03 Alkaline Phosphatase 78 IU/L (42-121) 04/22/21 05:03 Ammonia 41.3 umol/L (7-35) H 04/22/21 05:03 Total Protein 6.5 g/dL (6.7-8.2) L 04/22/21 05:03 Albumin 3.5 g/dL (3.2-5.5) 04/22/21 05:03 Globulin 3.0 g/dL (2.1-4.2) 04/22/21 05:03 Albumin/Globulin Ratio 1.2 (1.0-2.2) 04/22/21 05:03 Lipase 24 U/L (22-51) 04/19/21 13:54 TSH 1.09 uIU/mL (0.34-5.60) 04/19/21 13:54 Urine Color YELLOW 04/19/21 16:24 Urine Clarity CLEAR (CLEAR) 04/19/21 16:24 Urine pH 6.0 PH (5.0-7.5) 04/19/21 16:24 Ur Specific [place] <=1.005 (1.002-1.030) 04/19/21 16:24 Urine Protein 30 mg/dL (NEGATIVE) H 04/19/21 16:24 Urine Glucose (UA) NEGATIVE mg/dL (NEGATIVE) 04/19/21 16:24 Urine Ketones NEGATIVE mg/dL (NEGATIVE) 04/19/21 16:24 Urine Occult Blood TRACE-INTA (NEGATIVE) 04/19/21 16:24 Urine Nitrite NEGATIVE (NEGATIVE) 04/19/21 16:24 Urine Bilirubin NEGATIVE (NEGATIVE) 04/19/21 16:24 Urine Urobilinogen 0.2 (NORMAL) E.U./dL (NORMAL) 04/19/21 16:24 Ur Leukocyte Esterase NEGATIVE (NEGATIVE) 04/19/21 16:24 Urine RBC 0-5 /HPF (0-5) 04/19/21 16:24 Urine WBC 0-3 /HPF (0-3) 04/19/21 16:24 Ur Squamous Epith Cells RARE Squamous (<= Few) 04/19/21 16:24 Urine Bacteria None Seen /HPF (None Seen) 04/19/21 16:24 Urine Mucus Few Strands 04/19/21 16:24 Ur Microscopic Review INDICATED 04/19/21 16:24 Urine Culture Comments NOT INDICATED 04/19/21 16:24 Nasal Adenovirus (PCR) NOT DETECTED 04/19/21 15:30 Nasal B. parapertussis DNA (PCR) NOT DETECTED 04/19/21 15:30 Nasal Coronavir 229E PCR NOT DETECTED 04/19/21 15:30 Nasal Coronavir HKU1 PCR NOT DETECTED 04/19/21 15:30 Nasal Coronavir NL63 PCR NOT DETECTED 04/19/21 15:30 Nasal Coronavir OC43 PCR NOT DETECTED 04/19/21 15:30 Nasal Enterovir/Rhinovir PCR NOT DETECTED 04/19/21 15:30 Nasal Influenza B PCR NOT DETECTED 04/19/21 15:30 Nasal Influenza A PCR NOT DETECTED 04/19/21 15:30 Nasal Parainfluen 1 PCR NOT DETECTED 04/19/21 15:30 Nasal Parainfluen 2 PCR NOT DETECTED 04/19/21 15:30 Nasal Parainfluen 3 PCR NOT DETECTED 04/19/21 15:30 Nasal Parainfluen 4 PCR NOT DETECTED 04/19/21 15:30 Nasal RSV (PCR) NOT DETECTED 04/19/21 15:30 Nasal Screen MRSA (PCR) NEGATIVE (NEGATIVE) 04/19/21 18:35 Nasal B.pertussis DNA PCR NOT DETECTED 04/19/21 15:30 Nasal C.pneumoniae (PCR) NOT DETECTED 04/19/21 15:30 Isacc Human Metapneumo PCR NOT DETECTED 04/19/21 15:30 Nasal M.pneumoniae (PCR) NOT DETECTED 04/19/21 15:30 Nasal SARS-CoV-2 (PCR) NOT DETECTED 04/19/21 15:30 Salicylates < 6.0 mg/dL 04/19/21 13:54 Urine Opiates Screen NEGATIVE (NEGATIVE) 04/19/21 16:24 Ur Oxycodone Screen NEGATIVE (NEGATIVE) 04/19/21 16:24 Urine Methadone Screen NEGATIVE (NEGATIVE) 04/19/21 16:24 Ur Propoxyphene Screen NEGATIVE (NEGATIVE) 04/19/21 16:24 Acetaminophen < 10 ug/mL (10-30) L 04/19/21 13:54 Ur Barbiturates Screen NEGATIVE (NEGATIVE) 04/19/21 16:24 Ur Tricyclics Screen NEGATIVE (NEGATIVE) 04/19/21 16:24 Ur Phencyclidine Scrn NEGATIVE (NEGATIVE) 04/19/21 16:24 Ur Amphetamine Screen NEGATIVE (NEGATIVE) 04/19/21 16:24 U Methamphetamines Scrn NEGATIVE (NEGATIVE) 04/19/21 16:24 U Benzodiazepines Scrn POSITIVE (NEGATIVE) H 04/19/21 16:24 Urine Cocaine Screen NEGATIVE (NEGATIVE) 04/19/21 16:24 U Cannabinoids Screen NEGATIVE (NEGATIVE) 04/19/21 16:24 Ethyl Alcohol 595.9 mg/dL H* 04/19/21 13:54
[2021-04-22] MEDS: methocarbamoL 500 MG TABLET PO PRN (16:03)
[2021-04-22] MEDS: SODIUM CHLORIDE FLUSH 0.9% 10 ML SYRINGE IVP PRN (19:55)
[2021-04-22] MEDS: risperiDONE 1 MG TABLET PO SCH (20:53)
[2021-04-22] MEDS: HALOPERIDOL 10 MG/5 ML UDC PO SCH (20:53)
[2021-04-23] MEDS: SODIUM CHLORIDE FLUSH 0.9% 10 ML SYRINGE IVP SCH ×3 (04:57→16:47)
[2021-04-23] MEDS: methocarbamoL 500 MG TABLET PO PRN ×3 (06:16→20:55)
[2021-04-23] MEDS: chlordiazePOXIDE 25 MG CAPSULE PO SCH ×3 (06:17→23:30)
[2021-04-23] MEDS: LORazepam 1 MG TABLET PO PRN ×2 (06:21→12:02)
[2021-04-23] MEDS: lisinopriL 20 MG TABLET PO SCH (08:58)
[2021-04-23] MEDS: NICOTINE 14 MG PATCH TOP SCH (08:59)
[2021-04-23] MEDS: FAMOTIDINE 20 MG TABLET PO SCH ×2 (08:59→20:56)
[2021-04-23] MEDS: ESCITALOPRAM 10 MG TABLET PO SCH (08:59)
[2021-04-23] MEDS: PRENATAL VITAMIN TABLET PO SCH (08:59)
[2021-04-23] MEDS: PATIENT OWN MED PO SCH (09:01)
[2021-04-23] MEDS: THIAMINE 100 MG TABLET PO SCH (09:05)
[2021-04-23] MEDS: CHLORHEXIDINE GLUCONATE 15 ML UDC PO SCH (09:05)
--- NOTE | 2021-04-23 13:46 | PROVIDER PROGRESS NOTE ---
Assessment/Plan - Problem List (1) Diarrhea Assessment/Plan: Not associated with gas or pain. He thinks it was from some food here, or a "nervous stomach". Will check c.diff and abd XRay Will de escalate diet to bland diet (2) Drug overdose Qualifiers: Encounter type: subsequent encounter Injury intent: undetermined intent Qualified Code(s): T50.904D - Poisoning by unspecified drugs, medicaments and biological substances, undetermined, subsequent encounter Assessment/Plan: Patient's toxicology was positive for benzodiazepines. Patient was found with an empty bottle of alprazolam next to him. That plus alcohol binge, caused the obtundation that erquired intubation and vent for 1 day. He was transferred out of ICU last evening. (3) Suicidal ideation Still on 1:1 monitoring because of possible suicidal ideation that he voiced to his [employer]ER. Social work is working on having him transferred for inpatient psych management, however, he needs to be clinically stable and off iv benzos for 2 days (today was day1 and today he has new diarrhea). (4) Alcoholic abuse Blood alcohol level was 595.9. After extubation, he was started on scheduled Librium and was on a CIWA protocol w/ iv Ativan prn. We have stopped CIWA and prn Ativan. WE are spreading out the Librium, and plan tapering it to off. Will continue Thiamine and MOV. (5) Hypertension We resumed his home blood pressure medications (6) Depression and Anxiety We resumed his escitalopram and Respiradol and Haldol at hs. He also takes tid Benzos at home. Here he is getting qid Benzos. He claims he is anxious and is requesting higher dose of that scheduled benzo. He is speaking with slight slurring and he was somnolent when on the iv Ativan. Will adjust the Benzo dose higher but only at hs. (7) Tobacco use Patient had urges to smoke, admits to smoking 1 pack/day. We ordered nicotine patch topically daily, which is helping. (8) Respiratory failure Resolved. (9) Alcohol withdrawal Resolved, no tremulousness and stable VS. - Current Meds Current Meds: Current Medications Generic Name Dose Route Start Last Admin Trade Name Freq PRN Reason Stop Dose Admin Chlordiazepoxide HCl 25 mg 04/22/21 14:00 04/23/21 06:17 Chlordiazepoxide 25 Mg Capsule PO 25 mg Q8HR VLADIMIR Administration Chlorhexidine Gluconate 15 ml 04/19/21 21:00 04/23/21 09:05 Chlorhexidine Gluconate 15 Ml Udc PO 15 ml BID VLADIMIR Administration Escitalopram Oxalate 20 mg 04/21/21 09:00 04/23/21 08:59 Escitalopram 10 Mg Tablet PO 20 mg DAILY VLADIMIR Administration Famotidine 20 mg 04/22/21 09:00 04/23/21 08:59 Famotidine 20 Mg Tablet PO 20 mg BID VLADIMIR Administration Gabapentin 300 mg 04/20/21 08:41 04/22/21 16:03 Gabapentin 300 Mg Capsule PO 300 mg TID PRN Administration PAIN Haloperidol 10 mg 04/20/21 21:00 04/22/21 20:53 Haloperidol 10 Mg/5 Ml Udc PO 10 mg QPM VLADIMIR Administration Ibuprofen 600 mg 04/21/21 11:44 04/22/21 08:49 Ibuprofen 600 Mg Tablet PO 600 mg Q6HR PRN Administration PAIN Lisinopril 30 mg 04/21/21 09:00 04/23/21 08:58 Lisinopril 20 Mg Tablet PO 30 mg DAILY VLADIMIR Administration Lorazepam 1 mg 04/22/21 11:08 04/23/21 12:02 Lorazepam 1 Mg Tablet PO 1 mg Q6H PRN Administration Anxiety Methocarbamol 750 mg 04/20/21 08:47 04/23/21 06:16 Methocarbamol 500 Mg Tablet PO 750 mg TID PRN Administration Muscle spasms Nicotine 1 patch 04/20/21 13:00 04/23/21 08:59 Nicotine 14 Mg Patch TOP 1 patch DAILY VLADIMIR Administration Ondansetron HCl 4 mg 04/22/21 09:33 04/22/21 16:03 Ondansetron Odt 4 Mg Tablet TL 4 mg Q6HR PRN Administration Nausea / Vomiting Patient Own Medication 2 each 04/21/21 09:00 04/23/21 09:01 Patient Own Med PO Not Given DAILY VLADIMIR Multivit/Folic Acid/Iron 1 tab 04/20/21 09:00 04/23/21 08:59 Vitamin Tablet PO 1 tab DAILY VLADIMIR Administration Risperidone 4 mg 04/20/21 21:00 04/22/21 20:53 Risperidone 1 Mg Tablet PO 4 mg QPM VLADIMIR Administration Sodium Chloride 10 ml 04/20/21 01:00 04/23/21 09:01 Sodium Chloride Flush 0.9% 10 Ml Syringe IVP 10 ml 0100,0900,1700 VLADIMIR Administration Sodium Chloride 10 ml 04/19/21 17:34 04/22/21 19:55 Sodium Chloride Flush 0.9% 10 Ml Syringe IVP 10 ml PRN PRN Administration NEEDED PER PROVIDER ORDERS Thiamine HCl 100 mg 04/20/21 09:00 04/23/21 09:05 Thiamine 100 Mg Tablet PO 100 mg DAILY VLADIMIR Administration - Lab Result Fish Bone Diagrams: 04/22/21 05:03 04/22/21 05:03 - Additional Planning My Orders: My Active Orders 04/22/21 14:00 chlordiazePOXIDE [Librium] 25 mg PO Q8HR 04/23/21 C DIFF PCR Urgent 04/23/21 13:45 Abdomen 1 View X-Ray [XR] Stat Subjective - Subjective Patient Reports: Diarrhea (3 loose BMs), Other (Feels "anxious" and described his social situation to me (and to Merlyn jordan ).) Objective Vital Signs: Vital Signs - 24 hr 04/22/21 04/22/21 04/23/21 16:43 23:20 06:00 Temperature 36.7 C 36.6 C 36.5 C Heart Rate [ Brachial] Heart Rate [ 79 72 73 Monitoring electrodes] Respiratory 18 20 15 Rate Blood Pressure 152/96 H 160/100 H 150/97 H [Left Brachial artery] O2 Saturation 96 94 93 04/23/21 08:35 Temperature 36.4 C L Heart Rate [ 104 H Brachial] Heart Rate [ Monitoring electrodes] Respiratory 18 Rate Blood Pressure 164/94 H [Left Brachial artery] O2 Saturation 92 Oxygen O2 Source Room air I&O (Last 24 Hrs): Intake and Output Totals x24h 04/21/21 04/22/21 04/23/21 23:59 23:59 23:59 Intake Total 4160 2930 1999 Output Total 1250 1500 Balance 2910 1430 1999 General: Alert, Oriented x3 HEENT: Mucous membr. moist/pink Neck: Supple, No JVD Neuro: Alert, Oriented Times 3, Other (Speech is occaisionally slurred) Cardiovascular: Regular rate Respiratory: No respiratory distress Abdomen: Soft Extremities: No edema - Results Results: Laboratory Results WBC 2.7 x10^3/uL (4.8-10.8) L 04/22/21 05:03 RBC 3.93 10^6/uL (4.70-6.10) L 04/22/21 05:03 Hgb 12.5 g/dL (14.0-18.0) L 04/22/21 05:03 Hct 36.8 % (42.0-52.0) L 04/22/21 05:03 MCV 93.6 fL (80.0-94.0) 04/22/21 05:03 MCH 31.8 pg (27.0-31.0) H 04/22/21 05:03 MCHC 34.0 g/dL (32.0-36.0) 04/22/21 05:03 RDW 15.0 % (12.0-15.0) 04/22/21 05:03 Plt Count 59 10^3/uL (130-450) L 04/22/21 05:03 MPV 10.1 fL (7.4-11.4) 04/22/21 05:03 Neut # (Auto) Not Reportable 04/22/21 05:03 Lymph # (Auto) Not Reportable 04/22/21 05:03 [place] # (Auto) Not Reportable 04/22/21 05:03 Eos # (Auto) Not Reportable 04/22/21 05:03 Baso # (Auto) Not Reportable 04/22/21 05:03 Absolute Nucleated RBC Not Reportable 04/22/21 05:03 Total Counted 100 04/22/21 05:03 Band Neuts % (Manual) 1 % (0-10) 04/22/21 05:03 Abnorm Lymph % (Manual) 1 % 04/22/21 05:03 Nucleated RBC % Not Reportable 04/22/21 05:03 Neutrophils # (Manual) 1.5 10^3/uL (1.5-6.6) 04/22/21 05:03 Lymphocytes # (Manual) 1.0 10^3/uL (1.5-3.5) L 04/22/21 05:03 Monocytes # (Manual) 0.2 10^3/uL (0.0-1.0) 04/22/21 05:03 Eosinophils # (Manual) 0.1 10^3/uL (0-0.7) 04/22/21 05:03 Basophils # (Manual) 0.0 10^3/uL (0-0.1) 04/22/21 05:03 Differential Comment MANUAL DIFFERENTIAL 04/22/21 05:03 WBC Morphology NORMAL APPEARANCE (NORMAL) 04/22/21 05:03 Platelet Estimate DECREASED (<130,000) (NORMAL) 04/22/21 05:03 Platelet Morphology NORMAL APPEARANCE (NORMAL) 04/22/21 05:03 RBC Morph Micro Appear NORMAL APPEARANCE (NORMAL) 04/22/21 05:03 PT 13.3 secs (9.9-12.6) H 04/20/21 04:20 INR 1.2 (0.8-1.2) 04/20/21 04:20 Bld Gas Analysis Time 1408 04/19/21 14:00 Sample Site RIGHT RADIAL 04/19/21 14:00 ABG pH 7.32 (7.35-7.45) L 04/19/21 14:00 ABG pCO2 45 mmHg (34-45) 04/19/21 14:00 ABG pO2 62 mmHg (80-100) L 04/19/21 14:00 ABG HCO3 22.7 mmol/L (22.0-26.0) 04/19/21 14:00 ABG Total CO2 24.1 MMOL/L (21.0-29.0) 04/19/21 14:00 ABG O2 Saturation 84 % (94-98) L* 04/19/21 14:00 ABG Base Excess -3.6 mmol/L (-2.0-3.0) L 04/19/21 14:00 Makr Test POSITIVE 04/19/21 14:00 Respiration Rate 20 b/min 04/19/21 14:00 O2 Delivery Device VENTILATOR 04/19/21 14:00 Vent Mode SIMV 04/19/21 14:00 FiO2 60.00 04/19/21 14:00 Tidal Volume 750 mL 04/19/21 14:00 PEEP 5 cmH2O 04/19/21 14:00 Sodium 141 mmol/L (135-145) 04/22/21 05:03 Potassium 3.5 mmol/L (3.5-5.0) 04/22/21 05:03 Chloride 107 mmol/L (101-111) 04/22/21 05:03 Carbon Dioxide 25 mmol/L (21-32) 04/22/21 05:03 Anion Gap 9.0 (6-13) 04/22/21 05:03 BUN < 5 mg/dL (6-20) L 04/22/21 05:03 Creatinine 0.6 mg/dL (0.6-1.2) 04/22/21 05:03 Estimated GFR (MDRD) 149 (>89) 04/22/21 05:03 Glucose 110 mg/dL (70-100) H 04/22/21 05:03 Calcium 8.8 mg/dL (8.5-10.3) 04/22/21 05:03 Phosphorus 3.3 mg/dL (2.5-4.6) 04/22/21 05:03 Magnesium 2.0 mg/dL (1.7-2.8) 04/22/21 05:03 Total Bilirubin 1.8 mg/dL (0.2-1.0) H 04/22/21 05:03 AST 80 IU/L (10-42) H 04/22/21 05:03 ALT 42 IU/L (10-60) 04/22/21 05:03 Alkaline Phosphatase 78 IU/L (42-121) 04/22/21 05:03 Ammonia 41.3 umol/L (7-35) H 04/22/21 05:03 Total Protein 6.5 g/dL (6.7-8.2) L 04/22/21 05:03 Albumin 3.5 g/dL (3.2-5.5) 04/22/21 05:03 Globulin 3.0 g/dL (2.1-4.2) 04/22/21 05:03 Albumin/Globulin Ratio 1.2 (1.0-2.2) 04/22/21 05:03 Lipase 24 U/L (22-51) 04/19/21 13:54 TSH 1.09 uIU/mL (0.34-5.60) 04/19/21 13:54 Urine Color YELLOW 04/19/21 16:24 Urine Clarity CLEAR (CLEAR) 04/19/21 16:24 Urine pH 6.0 PH (5.0-7.5) 04/19/21 16:24 Ur Specific [place] <=1.005 (1.002-1.030) 04/19/21 16:24 Urine Protein 30 mg/dL (NEGATIVE) H 04/19/21 16:24 Urine Glucose (UA) NEGATIVE mg/dL (NEGATIVE) 04/19/21 16:24 Urine Ketones NEGATIVE mg/dL (NEGATIVE) 04/19/21 16:24 Urine Occult Blood TRACE-INTA (NEGATIVE) 04/19/21 16:24 Urine Nitrite NEGATIVE (NEGATIVE) 04/19/21 16:24 Urine Bilirubin NEGATIVE (NEGATIVE) 04/19/21 16:24 Urine Urobilinogen 0.2 (NORMAL) E.U./dL (NORMAL) 04/19/21 16:24 Ur Leukocyte Esterase NEGATIVE (NEGATIVE) 04/19/21 16:24 Urine RBC 0-5 /HPF (0-5) 04/19/21 16:24 Urine WBC 0-3 /HPF (0-3) 04/19/21 16:24 Ur Squamous Epith Cells RARE Squamous (<= Few) 04/19/21 16:24 Urine Bacteria None Seen /HPF (None Seen) 04/19/21 16:24 Urine Mucus Few Strands 04/19/21 16:24 Ur Microscopic Review INDICATED 04/19/21 16:24 Urine Culture Comments NOT INDICATED 04/19/21 16:24 Nasal Adenovirus (PCR) NOT DETECTED 04/19/21 15:30 Nasal B. parapertussis DNA (PCR) NOT DETECTED 04/19/21 15:30 Nasal Coronavir 229E PCR NOT DETECTED 04/19/21 15:30 Nasal Coronavir HKU1 PCR NOT DETECTED 04/19/21 15:30 Nasal Coronavir NL63 PCR NOT DETECTED 04/19/21 15:30 Nasal Coronavir OC43 PCR NOT DETECTED 04/19/21 15:30 Nasal Enterovir/Rhinovir PCR NOT DETECTED 04/19/21 15:30 Nasal Influenza B PCR NOT DETECTED 04/19/21 15:30 Nasal Influenza A PCR NOT DETECTED 04/19/21 15:30 Nasal Parainfluen 1 PCR NOT DETECTED 04/19/21 15:30 Nasal Parainfluen 2 PCR NOT DETECTED 04/19/21 15:30 Nasal Parainfluen 3 PCR NOT DETECTED 04/19/21 15:30 Nasal Parainfluen 4 PCR NOT DETECTED 04/19/21 15:30 Nasal RSV (PCR) NOT DETECTED 04/19/21 15:30 Nasal Screen MRSA (PCR) NEGATIVE (NEGATIVE) 04/19/21 18:35 Nasal B.pertussis DNA PCR NOT DETECTED 04/19/21 15:30 Nasal C.pneumoniae (PCR) NOT DETECTED 04/19/21 15:30 Isacc Human Metapneumo PCR NOT DETECTED 04/19/21 15:30 Nasal M.pneumoniae (PCR) NOT DETECTED 04/19/21 15:30 Nasal SARS-CoV-2 (PCR) NOT DETECTED 04/19/21 15:30 Salicylates < 6.0 mg/dL 04/19/21 13:54 Urine Opiates Screen NEGATIVE (NEGATIVE) 04/19/21 16:24 Ur Oxycodone Screen NEGATIVE (NEGATIVE) 04/19/21 16:24 Urine Methadone Screen NEGATIVE (NEGATIVE) 04/19/21 16:24 Ur Propoxyphene Screen NEGATIVE (NEGATIVE) 04/19/21 16:24 Acetaminophen < 10 ug/mL (10-30) L 04/19/21 13:54 Ur Barbiturates Screen NEGATIVE (NEGATIVE) 04/19/21 16:24 Ur Tricyclics Screen NEGATIVE (NEGATIVE) 04/19/21 16:24 Ur Phencyclidine Scrn NEGATIVE (NEGATIVE) 04/19/21 16:24 Ur Amphetamine Screen NEGATIVE (NEGATIVE) 04/19/21 16:24 U Methamphetamines Scrn NEGATIVE (NEGATIVE) 04/19/21 16:24 U Benzodiazepines Scrn POSITIVE (NEGATIVE) H 04/19/21 16:24 Urine Cocaine Screen NEGATIVE (NEGATIVE) 04/19/21 16:24 U Cannabinoids Screen NEGATIVE (NEGATIVE) 04/19/21 16:24 Ethyl Alcohol 595.9 mg/dL H* 04/19/21 13:54
--- NOTE | 2021-04-23 14:07 | XRAY Report ---
PROCEDURE: Abdomen 1 View X-Ray INDICATIONS: Diarrhea TECHNIQUE: 1 view of the abdomen were acquired. COMPARISON: None. FINDINGS: Surgical changes and devices: None. Bowel: No pneumoperitoneum. The bowel gas pattern is normal. Soft tissues: No masses; visualized solid organ contours appear normal in size. No suspicious abdom inal calcifications. Bones: No suspicious bony abnormalities. IMPRESSION: Large body habitus, reduced quality of visualization as a result. No sign of intestinal obstruction or perforation found. Reviewed by: Osorio Tyler MD on 04/23/2021 2:06 PM PDT Approved by: Osorio Tyler MD on 04/23/2021 2:06 PM PDT Station ID: [id number]
[2021-04-23] MEDS: IBUPROFEN 600 MG TABLET PO PRN ×2 (14:31→20:55)
[2021-04-23] MEDS: GABAPENTIN 300 MG CAPSULE PO PRN ×2 (16:48→20:56)
[2021-04-23] MEDS: LORazepam 1 MG TABLET PO SCH (16:59)
[2021-04-23] MEDS: HALOPERIDOL 10 MG/5 ML UDC PO SCH (20:55)
[2021-04-23] MEDS: risperiDONE 1 MG TABLET PO SCH (20:56)
[2021-04-23] MEDS ORDERED: LORazepam 0.5 MG TABLET PO SCH (21:00)
[2021-04-24] MEDS: SODIUM CHLORIDE FLUSH 0.9% 10 ML SYRINGE IVP SCH ×2 (00:47→08:43)
[2021-04-24] MEDS: chlordiazePOXIDE 25 MG CAPSULE PO SCH ×2 (05:22→13:58)
[2021-04-24 05:52] LABS: BASOPHILS % (AUTO) 0.8 %; EOSINOPHILS # (AUTO) 0.1 10^3/uL (0.0-0.7); EOSINOPHILS % (AUTO) 2.5 %; HCT - HEMATOCRIT 38.4 % (42.0-52.0); HGB - HEMOGLOBIN 12.8 g/dL (14.0-18.0); LYMPHOCYTES # (AUTO) 1.5 10^3/uL (1.5-3.5); MEAN CORPUSCULAR HEMOGLOBIN 31.5 pg (27.0-31.0); MEAN CORPUSCULAR HGB CONC 33.3 g/dL (32.0-36.0); MEAN CORPUSCULAR VOLUME 94.6 fL (80.0-94.0); MEAN PLATELET VOLUME 10.2 fL (7.4-11.4); MONOCYTES # (AUTO) 0.3 10^3/uL (0.0-1.0); MONOCYTES % (AUTO) 8.4 %; NEUTROPHILS # (AUTO) 1.6 10^3/uL (1.5-6.6); PLT - PLATELET COUNT 78 10^3/uL (130-450); RED BLOOD COUNT 4.06 10^6/uL (4.70-6.10); WHITE BLOOD COUNT 3.6 x10^3/uL (4.8-10.8)
[2021-04-24 06:04] LABS: BUN - BLOOD UREA NITROGEN < 5 mg/dL (6-20); CARBON DIOXIDE - CO2 26 mmol/L (21-32); CHLORIDE 104 mmol/L (101-111); CREATININE 0.7 mg/dL (0.6-1.2); GFR - MDRD 125 (>89); GLUCOSE 111 mg/dL (70-100); MAGNESIUM 1.7 mg/dL (1.7-2.8); POTASSIUM 3.2 mmol/L (3.5-5.0); SODIUM 139 mmol/L (135-145)
[2021-04-24] MEDS ORDERED: POTASSIUM CHLORIDE 20 MEQ TABLET PO ONE (08:05)
[2021-04-24] MEDS: LORazepam 1 MG TABLET PO SCH (08:28)
[2021-04-24] MEDS: NICOTINE 14 MG PATCH TOP SCH (08:41)
[2021-04-24] MEDS: THIAMINE 100 MG TABLET PO SCH (08:42)
[2021-04-24] MEDS: ESCITALOPRAM 10 MG TABLET PO SCH (08:42)
[2021-04-24] MEDS: PRENATAL VITAMIN TABLET PO SCH (08:42)
[2021-04-24] MEDS: FAMOTIDINE 20 MG TABLET PO SCH (08:42)
[2021-04-24] MEDS: PATIENT OWN MED PO SCH (08:43)
[2021-04-24] MEDS ORDERED: lisinopriL 20 MG TABLET PO SCH (09:00)
--- NOTE | 2021-04-24 09:38 | XRAY Report ---
PROCEDURE: Foot 3 View LT INDICATIONS: pain, injury? TECHNIQUE: 3 views of the foot were acquired. COMPARISON: None FINDINGS: Bones: Fracture of the distal aspect of the third proximal phalange which extends into the third PIP joint. Soft tissues: No tibiotalar joint effusion. Achilles tendon appears normal. IMPRESSION: Intra-articular third proximal phalange fracture. Reviewed by: Brigette Luz MD, PhD on 04/24/2021 9:37 AM PDT Approved by: Brigette Luz MD, PhD on 04/24/2021 9:37 AM PDT Station ID: [id number]
[2021-04-24] MEDS ORDERED: amLODIPine 5 MG TABLET PO SCH (10:00)
[2021-04-24] MEDS: HYDROcod/ACETAM 5/325 MG TABLET PO PRN ×2 (11:05→16:27)
[2021-04-24] MEDS: LORazepam 0.5 MG TABLET PO SCH ×2 (12:03→17:15)
[2021-04-24] MEDS ORDERED: hydrALAZINE INJ 20 MG/ML VIAL IVP PRN (13:03)
[2021-04-24] MEDS: IBUPROFEN 600 MG TABLET PO PRN (14:36)
--- NOTE | 2021-04-24 15:29 | Discharge Plan ---
"Discharge Plan for SNF / [facility] - Discharge Plan And Transition Orders Problem Reviewed?: Yes Disposition: [facility] Psych Hosp/Unit DC/Xfer Condition: Stable Allergies and Adverse Reactions: Allergies Allergy/AdvReac Type Severity Reaction Status Date / Time tramadol Allergy Unknown Verified 04/18/21 12:33 Health Concerns: suicide ideation, HTN, alcoholism, intra-articular third proximal phalange fracture. Plan of Treatment: pt continue to have suicide ideation, pt is transferred to [facility] for continuing care. pt is prescribed amlodipine and increased dosage of his home Lisinopril for his HTN control. pt has hx of alcohol abuse. Now pt has no more withdrawal symptoms. pt is prescribed and Vitamin B1. pt is prescribed pain medication as needed for his pain control of his intra- articular third proximal phalange fracture. Care Goals: stabilization and improvement of his medical conditions. Assessment: discussed the care plan with you, answered pt's questions, pt understood - SNF / [facility] Transition Orders Admit to (Facility): [facility] Under the care of (Name): provider of [facility] Discharge Diagnosis: drug overdose, suicide ideation, alcoholic abuse, HTN, depression and anxiety, diarrhea, tobacco use, respiratory failure. Medicare Certification Statement: I do not certify that [facility] prison care is medically necessary on a continuing basis for any of the conditions for which she/he is receiving care during hospitalization. Notify PCP of admission and forward orders to primary provider for signature. Other Notification Orders: Call PCP immediately if patient develops dyspnea, chest pain/tightness or edema. House Bowel Program: Yes Additional Bowel Program Orders: If no BM after 2 days, nurse may give M.O.M. 30ml PO PRN and/or ducolax Supp 1 CO and/or ELOISE 250mg P.O., and/or senna 1-2 tabs PO. On day 3 nurse may give repeat above order until residents constipation is resolved. Annual Influenza Vaccine (between Aug 01 and February 28): Yes Two-step PPD per [facility] [id number] or approved exception documents: Yes Treatments & Other Orders: pt continue to have suicide ideation, pt is transferred to [facility] for continuing care. pt is prescribed amlodipine and increased dosage of his home Lisinopril for his HTN control. pt has hx of alcohol abuse. Now pt has no more withdrawal symptoms. pt is prescribed and Vitamin B1. pt is prescribed pain medication as needed for his pain control of his intra-articular third proximal phalange fracture. Medication Orders: PLEASE REFER TO THE DISCHARGE MEDICATION LIST. Insulin Orders?: No - Medications New Prescriptions: HYDROcod/ACETAM 5/325 [[place] 5/325] 1 tab PO Q4HR PRN #20 tablet PRN Reason: Pain amLODIPine [Norvasc] 10 mg PO DAILY 10 Days #20 tablet Pnv No.95/Ferrous Fum/Folic AC [ Tablet] 1 each PO DAILY #30 tablet Thiamine [Vitamin B-1] 100 mg PO DAILY #30 tablet lisinopriL [Zestril] 40 mg PO DAILY 10 Days #20 tablet - Diet Type: Geriatric Texture: Regular Liquids: Thin May have monthly special meal: Yes - Therapies | Activity Activity: Activity as Tolerated"
--- NOTE | 2021-04-24 16:04 | DISCHARGE SUMMARY ---
Discharge Summary Admit Date: 04/19/21 Discharge Date: 04/24/21 Discharging Provider: Omar Wilson Primary Care Provider: Jared Unger Condition at Discharge: Stable Discharge Disposition: [facility] Psych Hosp/Unit DC/Xfer Discharge Facility Name: [facility] - DIAGNOSES Discharge Diagnoses with Status of Each Condition: (1) Diarrhea resolved. C.dif test was negative (2) Drug overdose resolved. pt is alert and oriented plus 4. pt walked at nurse station hallway without distress. In the admission, Patient's toxicology was positive for benzodiazepines. Patient was found with an empty bottle of alprazolam next to him. That plus alcohol binge, caused the obtundation that erquired intubation and vent for 1 day in the ICU. Then pt was transferred out of ICU to medical floor. pt continue to improve from his drug overdose. (3) Suicidal ideation pt report to me and RN he constantly has suicidal ideation. structural steel trades worker was consulted, and pt was transferred to [facility] for continuing care. (4) Alcoholic abuse pt has no more alcoholic withdrawal in the hospital. pt is prescribed and B1. In the admission, pt's Blood alcohol level was 595.9. After extubation, he was started on scheduled Librium and was on a CIWA protocol w/ iv Ativan prn. Then We have stopped CIWA and prn Ativan. Now pt has no more alcoholic withdrawal in the hospital. (5) Hypertension pt has elevated blood pressure in the hospital. pt is prescribed Norvasc, and increased his home lisinopril to 40mg daily from 30mg daily. (6) Depression and Anxiety resume home meds, continue the care at [facility] (7) Tobacco use advise pt quit (8) Respiratory failure Resolved. (9) Alcohol withdrawal Resolved (10)intra-articular third proximal phalange fracture From previous injury. pt is prescribed pain meds for PRN. educate pt for injury rehab and injury protection. pt verbally stated he understood. - HPI History of Present Illness: refer from Dr. Arzate's HPI from 04/19/[address] Wang's H&P: Patient is a 40-year-old male brought in by EMS for unresponsiveness today. Longstanding history of mental illness. He was [place] un[place]. A bottle of alprazolam was nearby. History of heavy alcohol use as well. Up in the ED showed a blood alcohol level of 595.9. Patient was also positive for benzodiazepines. ABG showed pH of 7.32, PO2 sixty-two, PCO2 forty-five, bicarb 22.7.Patient had a GCS of 3. Currently he was intubated and presented for admission for further management. At bedside he is resting comfortably. - HOSPITAL COURSE Hospital Course: pt was brought in by EMS for unresponsiveness. Patient's toxicology was positive for benzodiazepines. Patient was found with an empty bottle of alprazolam next to him. pt's Blood alcohol level was 595.9. which caused his obtundation that erquired intubation and vent for 1 day in the ICU. After pt was improved, Then pt was transferred out of ICU to medical floor. Pt continue improved, he walked at nurse station and hallway without distress, and reached to d/c standard. Pt constantly report he had suicide ideation "If I am not telling you I always have suicide ideation, just not attempt to do it, then I am lying." structural steel trades worker was consulted. pt was transferred to [facility] for inpt care. - ALLERGIES Allergies/Adverse Reactions: Allergies Allergy/AdvReac Type Severity Reaction Status Date / Time tramadol Allergy Unknown Verified 04/18/21 12:33 - MEDICATIONS Home Medications: Ambulatory Orders Medication Instructions Recorded Confirmed traZODone [Desyrel] 50 mg PO QPM PRN 10/07/20 04/19/21 Alprazolam [Xanax] 1 mg PO TID PRN 04/19/21 04/19/21 Emtricitabine/Tenofovir (Tdf) 1 tab PO DAILY 04/19/21 04/19/21 [Emtricitabine-Tenofv 200-300Mg] Escitalopram Oxalate [Lexapro] 20 mg PO DAILY 04/19/21 04/19/21 Gabapentin [Neurontin] 300 mg PO TID PRN 04/19/21 04/19/21 Naltrexone HCl 100 mg PO DAILY 04/19/21 04/19/21 methocarbamoL [Methocarbamol] 750 mg PO TID PRN 04/19/21 04/19/21 risperiDONE [Risperdal] 4 mg PO QPM 04/19/21 04/19/21 haloperidoL [Haloperidol] 10 mg PO QPM 04/20/21 04/20/21 HYDROcod/ACETAM 5/325 [[place] 5/325] 1 tab PO Q4HR PRN #20 tablet 04/24/21 Pnv No.95/Ferrous Fum/Folic AC 1 each PO DAILY #30 tablet 04/24/21 [ Tablet] Thiamine [Vitamin B-1] 100 mg PO DAILY #30 tablet 04/24/21 amLODIPine [Norvasc] 10 mg PO DAILY 10 Days #20 tablet 04/24/21 lisinopriL [Zestril] 40 mg PO DAILY 10 Days #20 tablet 04/24/21 - PHYSICAL EXAM AT DISCHARGE General Appearance: positive: No acute distress, Alert. negative: Lethargic Eyes Bilateral: positive: Normal inspection, PERRL, No lid inflammation ENT: positive: ENT inspection nml, No signs of dehydration. negative: Purulent nasal drainage Neck: positive: Nml inspection, Trachea midline. negative: Thyromegaly, Tracheal deviation Respiratory: positive: Chest non-tender, No respiratory distress. negative: Wheezes, Rales, Rhonchi Cardiovascular: positive: Regular rate & rhythm, No murmur. negative: Tachycardia, Bradycardia, Systolic murmur, Diastolic murmur Peripheral Pulses: positive: 2+ Abdomen: positive: Non-tender, Nml bowel sounds, No distention. negative: Tenderness, Guarding Back: positive: Nml inspection Skin: positive: Color nml, Warm, Dry. negative: Cyanosis, Diaphoresis Extremities: positive: Non-tender, Full ROM, Nml appearance. negative: Calf tenderness Neurologic/Psychiatric: positive: Oriented x3, Motor nml, Sensation nml, Mood/affect nml. negative: Weakness, Sensory loss, Facial droop, Slurred/abnml speech, Depressed mood/affect - LABS Result Diagrams: 04/24/21 05:40 04/24/21 05:40 - FOLLOW UP Follow Up: t continue to have suicide ideation, pt is transferred to [facility] for continuing care. pt is prescribed amlodipine and increased dosage of his home Lisinopril for his HTN control. pt has hx of alcohol abuse. Now pt has no more withdrawal symptoms. pt is prescribed and Vitamin B1. pt is prescribed pain medication as needed for his pain control of his intra- articular third proximal phalange fracture. pt was transferred to [facility] for inpt care. - TIME SPENT Time Spent in Discharge (Minutes): 30
[2021-04-24 17:02] VITALS: BP 163/94
[2021-04-24] MEDS: ONDANSETRON ODT 4 MG TABLET TL PRN (18:26)
== END 2021-04-24 18:29 | DRG 917 ==
LOC: EDUNIT# → ED 13:05 → ICU 17:34 → MS2 04-22 13:48
PROVIDERS: ADMIT Internal Medicine; ATTEND Nurse Practitioner Gerontology
DX: T42.4X4A Poisoning by benzodiazepines, undetermined, initial encounter (principal); J96.00 Acute respiratory failure, unspecified whether with hypoxia or hypercapnia; R45.851 Suicidal ideations; R44.0 Auditory hallucinations; F10.139 Alcohol abuse with withdrawal, unspecified; F10.129 Alcohol abuse with intoxication, unspecified; Y90.8 Blood alcohol level of 240 mg/100 ml or more; I10 Essential (primary) hypertension; F41.9 Anxiety disorder, unspecified; F32.9 Major depressive disorder, single episode, unspecified; F17.210 Nicotine dependence, cigarettes, uncomplicated; Z20.822 Contact with and (suspected) exposure to COVID-19; R19.7 Diarrhea, unspecified
CPT/HCPCS: 0202U; 31500; 36415; 36600; 70450; 71045; 71250; 73630; 74018; 80048; 80053; 80306; 80307; 80320; 80329; 81001; 82140; 82803; 83690; 83735; 84100; 84443; 85025; 85610; 87150; 87493; 93005; 94002; 94003; 96374; 99285; A9270; J2060; J8499; Q0162; 81003; 87086; 94770